=== PATIENT | female | born 1940 | race Caucasian/White ===

== ENCOUNTER 2017-04-08 10:25 | Outpatient (RCR) | payer MEDICARE | END 2017-04-09 | disposition home or self-care (01) | LOC: CR 10:25 | PROVIDERS: ATTEND Pediatrics | DX: Z48.812 Encounter for surgical aftercare following surgery on the circulatory system (principal); Z95.2 Presence of prosthetic heart valve | CPT/HCPCS: 93798 ==

== ENCOUNTER 2017-07-18 10:58 | Outpatient (RCR) | payer MEDICARE | END 2017-07-21 | disposition home or self-care (01) | LOC: CR 10:58 | PROVIDERS: ATTEND Pediatrics | DX: Z95.2 Presence of prosthetic heart valve (principal) | CPT/HCPCS: 93798 ==

== ENCOUNTER → 2018-09-28 | Outpatient (CLI) | payer MEDICARE ==
[2018-09-28 14:53] LABS: INR 1.5 (0.8-1.4); PROTHROMBIN TIME PATIENT 17.8 SEC (12.2-14.7)
== END ==
LOC: LAB FS 13:43
PROVIDERS: ATTEND Pediatrics
DX: Z95.2 Presence of prosthetic heart valve (principal)
CPT/HCPCS: 36415; 82607; 85610

== ENCOUNTER → 2019-03-26 | Outpatient (CLI) | payer MEDICARE | LOC: LAB FS 14:13 | PROVIDERS: ATTEND Pediatrics | DX: D25.9 Leiomyoma of uterus, unspecified (principal); R19.09 Other intra-abdominal and pelvic swelling, mass and lump | CPT/HCPCS: 36415; 82378; 86304 ==

== ENCOUNTER 2019-04-04 09:23 | Outpatient (RCR) | payer MEDICARE ==
[2019-01-17 10:26] LABS: PROTHROMBIN TIME PATIENT 13.4 SEC (12.2-14.7)
[2019-03-26 15:34] LABS: INR 1.3 (0.8-1.4); PROTHROMBIN TIME PATIENT 17.1 SEC (12.2-14.7)
[~2019-04-04 09:23] MED LIST: SEVOFLURANE (ULTANE) 15 ML INHAL SOLN ONE
[2019-04-04 10:21] LABS: INR 1.7 (0.8-1.4); PROTHROMBIN TIME PATIENT 20.2 SEC (12.2-14.7)
== END 2019-04-17 | disposition home or self-care (01) ==
LOC: LAB FS 09:23
PROVIDERS: ATTEND Pediatrics
DX: Z48.812 Encounter for surgical aftercare following surgery on the circulatory system (principal); Z95.2 Presence of prosthetic heart valve
CPT/HCPCS: 36415; 85610

== ENCOUNTER 2023-05-22 13:26 | Emergency (ER) | payer MEDICARE ==
[2023-05-22 13:26] VITALS: BP 131/84
--- NOTE | 2023-05-22 13:36 | ED Fall/Injury ---
General Stated Complaint: FALL | HIP FX Source: patient, EMS Exam Limitations: no limitations History of Present Illness Date Seen by Provider: May 22, 2023 Time Seen by Provider: 13:23 Initial Comments 83-year-old female presents to the emergency department today via EMS after a ground-level fall. She states she was standing in her kitchen and just cooked lunch. She stood up to take a step and "went down." She does not recall the circumstances behind it but feels like she may have briefly lost consciousness. She did not hit her head per her report. She has pain at her left hip and was unable to bear any weight or move without excruciating pain. She has no pain elsewhere. She is on Coumadin for an artificial heart valve. She denies any chest pain, abdominal pain, upper extremity pain, right lower extremity pain. All other systems reviewed and negative except documented per HPI. Voice recognition software was used to help create this chart Allergies and Home Medications Allergies Coded Allergies: No Known Drug Allergies (Unverified , 05/22/23) Patient Home Medication List Home Medication List Reviewed: Yes Review of Systems Review of Systems Constitutional: see HPI Past Kitfcyk-Imwqqh-Dzbnue Hx Patient Social History Tobacco Use?: No Use of E-Cig and/or Vaping dev: No Substance use?: No Alcohol Use?: No Physical Exam Vital Signs Vital Signs - First Documented 05/22/23 05/22/23 13:26 14:27 Temp 36.9 Pulse 80 Resp 16 B/P (MAP) 131/84 (100) Pulse Ox 92 O2 Delivery Room Air O2 Flow Rate 2.00 Capillary Refill : Height, Weight, BMI Height: '" Weight: lbs. oz. kg; BMI Method: General Appearance: WD/WN, no apparent distress HEENT: normal ENT inspection, pharynx normal Cardiovascular: regular rate, rhythm, systolic murmur (Consistent with artificial heart valve) Respiratory: chest non-tender, lungs clear, normal breath sounds, no respiratory distress, no accessory muscle use Gastrointestinal: normal bowel sounds, non tender, soft, no organomegaly Extremities: normal capillary refill, other (Left lower extremity shortened, externally rotated. Significant tenderness palpation left lateral hip. Neurovascular motor intact distally) Neurologic/Psychiatric: alert, normal mood/affect, oriented x 3 Skin: normal color, warm/dry Progress/Results/Core Measures Results/Orders Lab Results Laboratory Tests Test 05/22/23 13:40 Range/Units White Blood Count 8.6 4.3-11.0 10^3/uL Red Blood Count 3.37 L 3.80-5.11 10^6/uL Hemoglobin 11.1 L 11.5-16.0 g/dL Hematocrit 33 L 35-52 % Mean Corpuscular Volume 97 80-99 fL Mean Corpuscular Hemoglobin 33 25-34 pg Mean Corpuscular Hemoglobin Concent 34 32-36 g/dL Red Cell Distribution Width 12.0 10.0-14.5 % Platelet Count 210 130-400 10^3/uL Mean Platelet Volume 10.4 9.0-12.2 fL Immature Granulocyte % (Auto) 0 % Neutrophils (%) (Auto) 74 42-75 % Lymphocytes (%) (Auto) 16 12-44 % Monocytes (%) (Auto) 7 0-12 % Eosinophils (%) (Auto) 2 0-10 % Basophils (%) (Auto) 1 0-10 % Neutrophils # (Auto) 6.4 1.8-7.8 10^3/uL Lymphocytes # (Auto) 1.4 1.0-4.0 10^3/uL Monocytes # (Auto) 0.6 0.0-1.0 10^3/uL Eosinophils # (Auto) 0.2 0.0-0.3 10^3/uL Basophils # (Auto) 0.1 0.0-0.1 10^3/uL Immature Granulocyte # (Auto) 0.0 0.0-0.1 10^3/uL Prothrombin Time 24.1 H 12.2-14.7 SEC INR Comment 2.1 H 0.8-1.4 Sodium Level 134 L 135-145 MMOL/L Potassium Level 4.1 3.6-5.0 MMOL/L Chloride Level 100 98-107 MMOL/L Carbon Dioxide Level 24 21-32 MMOL/L Anion Gap 10 5-14 MMOL/L Blood Urea Nitrogen 8 7-18 MG/DL Creatinine 0.80 0.60-1.30 MG/DL Estimat Glomerular Filtration Rate 72 BUN/Creatinine Ratio 10 Glucose Level 88 70-105 MG/DL Calcium Level 8.9 8.5-10.1 MG/DL My Orders Orders - ALMITA SMITH DO Cbc And Automated Diff (05/22/23 13:31) Basic Metabolic Panel (05/22/23 13:31) Protime With Inr (05/22/23 13:31) Ekg Tracing (05/22/23 13:31) Pelvis With Left Hip 2-3 View (05/22/23 13:31) Ct Head Wo (05/22/23 13:32) Morphine Injection (Morphine Injection (05/22/23 14:02) Morphine Injection (Morphine Injection (05/22/23 14:04) Vital Signs/I&O 05/22/23 05/22/23 13:26 14:27 Temp 36.9 Pulse 80 74 Resp 16 16 B/P (MAP) 131/84 (100) 139/69 (92) Pulse Ox 92 98 O2 Delivery Room Air Nasal Cannula O2 Flow Rate 2.00 Comment Sinus rhythm with a rate of 75 bpm. Normal intervals. Left axis deviation. Incomplete right bundle branch block. No ST or T wave abnormalities. No ectopy. No STEMI. Departure Communication (Admissions) Patient is hemodynamically stable, neurovascular and sensory intact. She appears to have syncopized which caused her to fall to the ground. She does have a femoral neck fracture on the left side. Given that she is on Coumadin does not know she hit her head no and did a CT scan of her head which is negative. Labs are unremarkable EKG is nonischemic without any evidence for dysrhythmia. I spoke with at [facility] who accepts the patient in transfer as we do not have orthopedic coverage available this weekend. She is ultimately transferred in stable condition. She was given morphine here for pain which seemed to help her quite a bit. Impression Primary Impression: Femoral neck fracture Qualified Codes: S72.002A - Fracture of unspecified part of neck of left femur, initial encounter for closed fracture Disposition: HOME, SELF-CARE Condition: Stable Departure-Patient Inst. Referrals: LELE CHRISTENSEN MD (PCP/Family) Primary Care Physician ALMITA SMITH DO May 22, 2023 13:35
[2023-05-22 13:47] LABS: BASOPHILS # (AUTO) 0.1 10^3/uL (0.0-0.1); BASOPHILS % (AUTO) 1 % (0-10); EOSINOPHILS # (AUTO) 0.2 10^3/uL (0.0-0.3); EOSINOPHILS % (AUTO) 2 % (0-10); HEMATOCRIT 33 % (35-52); HEMOGLOBIN 11.1 g/dL (11.5-16.0); LYMPHOCYTES # (AUTO) 1.4 10^3/uL (1.0-4.0); LYMPHOCYTES % (AUTO) 16 % (12-44); MEAN CORPUSCULAR HEMOGLOBIN 33 pg (25-34); MEAN CORPUSCULAR HGB CONC 34 g/dL (32-36); MEAN CORPUSCULAR VOLUME 97 fL (80-99); MEAN PLATELET VOLUME 10.4 fL (9.0-12.2); MONOCYTES # (AUTO) 0.6 10^3/uL (0.0-1.0); MONOCYTES % (AUTO) 7 % (0-12); NEUTROPHILS # (AUTO) 6.4 10^3/uL (1.8-7.8); NEUTROPHILS % (AUTO) 74 % (42-75); PLATELET COUNT 210 10^3/uL (130-400); WHITE BLOOD COUNT 8.6 10^3/uL (4.3-11.0)
[2023-05-22 13:57] LABS: INR 2.1 (0.8-1.4); PROTHROMBIN TIME PATIENT 24.1 SEC (12.2-14.7)
[2023-05-22] MEDS ORDERED: morphine INJ 10 MG/ML 1ML (SYR OR VIAL) IVP STA (14:02)
[2023-05-22 14:03] LABS: POTASSIUM 4.1 MMOL/L (3.6-5.0)
[2023-05-22 14:04] LABS: CALCIUM 8.9 MG/DL (8.5-10.1)
[2023-05-22] MEDS ORDERED: morphine INJ 4 MG/ML 1 ML (VIAL/SYRINGE) ONE (14:04)
[2023-05-22 14:05] LABS: CREATININE SERUM 0.8 MG/DL (0.60-1.30)
--- NOTE | 2023-05-22 14:22 | Diagnostic Imaging Report ---
EXAMINATION: Left hip unilateral 2 or 3 views (w/pelvis when done) HISTORY: L hip pain after fall COMPARISON: None available. FINDINGS: The left femoral neck is not well seen on either view. No fracture is seen. There is moderate right hip osteoarthritis. No dislocation. IMPRESSION: 1. No fracture is seen but the left femoral neck is obscured on both views, consider CT given the limited radiographic views. Dictated by: Dictated on workstation # [id number]
--- NOTE | 2023-05-22 14:23 | Diagnostic Imaging Report ---
PROCEDURE: CT head without contrast. TECHNIQUE: Multiple contiguous axial images were obtained through the brain without the use of intravenous contrast. Auto Exposure Controls were utilized during the CT exam to meet ALARA standards for radiation dose reduction. INDICATION: Trauma. Head injury. Fall. Anticoagulation therapy. COMPARISON: None. FINDINGS: Moderate generalized parenchymal volume loss. No intracranial hemorrhage, mass effect, hydrocephalus, or extra-axial fluid collections. No CT evidence of a territorial infarction. Osseous structures are intact. Minimal mucosal thickening in the maxillary and ethmoid sinuses. The mastoids are clear. IMPRESSION: No acute intracranial CT findings. Dictated by: Dictated on workstation # [id number]
== END 2023-05-22 14:51 | disposition short-term general hospital (02) ==
LOC: EDUNIT# 13:26 → ER FS 13:28
DX: S72.002A Fracture of unspecified part of neck of left femur, initial encounter for closed fracture (principal); Z79.01 Long term (current) use of anticoagulants; W18.30XA Fall on same level, unspecified, initial encounter; Y93.G3 Activity, cooking and baking; Y92.000 Kitchen of unspecified non-institutional (private) residence as the place of occurrence of the external cause
CPT/HCPCS: 36415; 70450; 73502; 80048; 85025; 85610; 93005; 96374

== ENCOUNTER 2023-05-29 09:51 | Inpatient (IN) | payer MEDICARE ==
[~2023-05-29] VITALS: Ht 162.6 cm; Wt 61.0 kg
--- NOTE | 2023-05-29 09:00 | PM&R Post Admission Assessment ---
PM&R Date of Visit: May 29, 2023 Time of Visit: 14:00 History of Present Illness Chief complaint: Left hip fracture repair with recovery HPI: This is an 83-year-old female who presented from [facility] following a left hip fracture repair. She has a history of a mechanical aortic valve replacement maintained on Coumadin. Current INR is 1.0. Patient has also a history of urinary incontinence and asthma with anemia. Prior level of functioning was living with spouse and independent in ADLs but current level of functioning requiring moderate assist and transfer and only walking 15 feet with wheeled walker. She reports that her pain is well controlled and she is eating lunch. Past Ihflsfu-Janosj-Tksdgu Hx Past Med/Social Hx: Reviewed Nursing Past Med/Soc Hx, Reviewed and Corrections made Patient Social History Marrital Status: Employed/Student: retired Alcohol Use: Denies Use Smoking Status: Never a Smoker Past Medical History Surgeries: Valve Replacement Cardiac: High Cholesterol, Hypertension, Valvular Heart Disease Gastrointestinal: Gastroesophageal Reflux Musculoskeletal: Arthritis PM&R Allergy/Meds/Data Review Allergies Coded Allergies: No Known Drug Allergies (Unverified , 05/22/23) Home Medications Scheduled Albuterol Sulfate (Albuterol Sulfate), 4 MG PO DAILY, (Reported) Alprazolam (Alprazolam), 1 MG PO HS, (Reported) Calcium Carbonate/Vitamin D3 (Calcium 600 mg-Vit D3 5 Mcg Tb), 1 EACH PO DAILY, (Reported) Cyanocobalamin (Vitamin B-12) (Vitamin B-12), 1,000 MCG PO DAILY, (Reported) Fluticasone/Salmeterol (Advair 250-50 Diskus), 1 PUFF IH BID, (Reported) Sucralfate (Sucralfate), 1 GM PO BID WITH MEALS, (Reported) Warfarin Sodium (Warfarin Sodium), 1 MG PO DAILY@1800, (Reported) Warfarin Sodium (Warfarin Sodium), 4 MG PO DAILY@1800, (Reported) [Prevagen], 10 MG PO DAILY, (Reported) Scheduled PRN Albuterol Sulfate (Ventolin Hfa), 1 PUFF INH Q6H PRN for SHORTNESS OF BREATH, (Reported) Hydrocodone/Acetaminophen (Hydrocodone-Acetamin 5-325 mg), 1 TAB PO Q4H PRN for PAIN-MODERATE (5-7), (Reported) Current Medications Current Medications Reviewed Review of Systems Constitutional: see HPI, malaise, weakness EENTM: no symptoms reported Respiratory: no symptoms reported Cardiovascular: no symptoms reported Gastrointestinal: constipation Genitourinary: no symptoms reported Musculoskeletal: back pain, joint pain Skin: no symptoms reported Psychiatric/Neurological: Anxiety, Depressed All Other Systems Reviewed Negative Unless Noted: Yes Physical Exam Physical Exam Vital Signs Capillary Refill : Height, Weight, BMI Height: '" Weight: lbs. oz. kg; BMI Method: General Appearance: No Apparent Distress, WD/WN, Chronically ill Eyes: Bilateral Eye Normal Inspection, Bilateral Eye PERRL HEENT: PERRL/EOMI, Normal ENT Inspection, Pharynx Normal Neck: Full Range of Motion, Normal Inspection, Non Tender, Supple, Carotid Bruit Respiratory: Chest Non Tender, Lungs Clear, Normal Breath Sounds, No Accessory Muscle Use, No Respiratory Distress Cardiovascular: Regular Rate, Rhythm, No Edema, No Gallop, No JVD, No Murmur, Normal Peripheral Pulses, Other (click) Gastrointestinal: Normal Bowel Sounds, No Organomegaly, No Pulsatile Mass, Non Tender, Soft Back: Normal Inspection, No CVA Tenderness, No Vertebral Tenderness Extremity: Normal Capillary Refill, Normal Inspection, Normal Range of Motion (except left leg), Non Tender, No Calf Tenderness, No Pedal Edema Neurologic/Psychiatric: Alert, Oriented x3, No Motor/Sensory Deficits, Normal Mood/Affect, Abnormal Gait, Motor Weakness (left leg) Skin: Normal Color, Warm/Dry Lymphatic: No Adenopathy PM&R Medical Assessment & Plan REHAB/MEDICAL ASSESSMENT AND PLAN: REHAB IMPAIRMENT GROUP: Status post unilateral hip fracture ETIOLOGIC DIAGNOSIS: Left femoral neck fracture, displaced The comorbidities that impact the patients function and/or functional outcome by: mechanical heart valve, anemia, hypertension, advanced age REHAB PLAN: The patient is being admitted to our comprehensive inpatient rehabilitation facility and can tolerate the intensity of service consisting of at least: 180 minutes of therapy a day, 5 out of 7 days a week Rehab treatment will consist of: PT and OT will focus on increasing ADLs along with stamina with ambulation and prevent falls along with improving independence in order to go home with spouse The patient/family has a good understanding of our discharge process and will benefit from an interdisciplinary inpatient rehabilitation program. The patient has potential to make improvement and is in need of at least two of the following multidisciplinary therapies including but not limited to physical, occupational, speech, and prosthetics and orthotics. Additionally the patient will need services from respiratory, nutritional services, wound care, psychology, etc. (Customize this to each patient). Given the patients complex condition and risk of further medical complications, rehabilitation services cannot be safely or effectively provided at a lower level of care such as a intermediate facility. BARRIERS TO DISCHARGE: Advanced age and frail status with warfarin anticoagulation ESTIMATED LOS: 7 days DISPOSITION: Home RELEVANT CHANGES SINCE PREADMISSION SCREENING: I have compared the patients medical and functional status at the time of the preadmission screening and there are: no changes PROGNOSIS: Good REHABILITATION GOALS: 1. PT and OT will focus on increasing ADLs along with stamina with ambulation and prevent falls along with improving independence in order to go home with spouse All the above goals were reviewed with the patient and he/she is in agreement. By signing this document, I acknowledge that I have personally performed a full physical examination on this patient within 24 hours of admission to this inpatient rehabilitation facility and have determined the patient to be able to tolerate the above course of treatment at an intensive level for a reasonable period of time. I will be completing a detailed individualized Plan of Care for this patient by day #4 of the patients stay based upon the Preadmission Screen, the Post-Admission Evaluation, and the therapy evaluations. Admission Dx/Comorbidities: (1) Femoral neck fracture Status: Acute ICD Codes: S72.009A - Fracture of unspecified part of neck of unspecified femur, initial encounter for closed fracture BIBI HOGUE DO May 29, 2023 09:00
[~2023-05-29 09:51] MED LIST changes: +ACETAMINOPHEN 325 MG TABLET PO PRN; +ALPRAZolam 0.25 MG TABLET PO PRN; +BISACODYL 10 MG SUPPOSITORY PR PRN; +CALCIUM CARBONATE 500 MG CHEW TABLET PO PRN; +DOCUSATE SODIUM 100 MG CAPSULE PO PRN; +LACTULOSE SYRUP 10GM/15ML 30ML UDC PO PRN; +LOPERAMIDE 2 MG CAPSULE PO PRN; +MELATONIN 3 MG TABLET PO PRN; +ONDANSETRON 4 MG ORAL DISSOLVE TABLET PO PRN; -SEVOFLURANE (ULTANE) 15 ML INHAL SOLN ONE; +Sodium Phosphate/Sodium Biphosphate ADULT enema PR PRN; +diphenhydrAMINE 25 MG TABLET PO PRN; +guaiFENesin/CODEINE 10ML UDC PO PRN
[2023-05-29] MEDS: SENNA W/DOCUSATE TABLET PO SCH ×2 (09:52→20:52)
[2023-05-29] MEDS: DOCUSATE SODIUM 100 MG CAPSULE PO SCH ×2 (09:52→20:06)
[2023-05-29 09:55] VITALS: BP 122/61
[2023-05-29] MEDS ORDERED: RT-ALBUINH INH (10:13)
[2023-05-29] MEDS ORDERED: FLUT1DIS26 IH (10:13)
[2023-05-29] MEDS ORDERED: ALBU4TAB4 PO (10:13)
[2023-05-29] MEDS ORDERED: CALC-1104 PO (10:13)
[2023-05-29] MEDS ORDERED: PREVAGEN PO (10:13)
[2023-05-29] MEDS ORDERED: ALPR1TAB7 PO (10:13)
[2023-05-29] MEDS ORDERED: SUCR1TAB PO (10:13)
[2023-05-29] MEDS ORDERED: WRF1T PO (10:13)
[2023-05-29] MEDS ORDERED: WARF4TAB3 PO (10:13)
[2023-05-29] MEDS ORDERED: CYAN-41 PO (10:13)
[2023-05-29] MEDS ORDERED: ACHD5005 PO (10:13)
[2023-05-29] MEDS ORDERED: RT-ALBUTEROL SULF 2.5 MG/3 ML PRE-MIX VIAL INH PRN (13:00)
[2023-05-29] MEDS: HYDROcodone/ACETAMINOPHEN 5 MG/325 MG TABLET PO PRN ×2 (15:19→20:06)
[2023-05-29] MEDS: SUCRALFATE 1 GM TABLET PO SCH (17:21)
[2023-05-29] MEDS: warFARin 4 MG (COUMADIN) TAB PO SCH (17:22)
[2023-05-29] MEDS: warFARin 1 MG (COUMADIN) TAB PO SCH (17:22)
[2023-05-29 19:54] VITALS: BP 131/66
[2023-05-29] MEDS: ALPRAZolam 1 MG TABLET PO SCH (20:06)
--- NOTE | 2023-05-30 05:20 | PM&R Progress Note ---
Subjective HPI/CC On Admission Date Seen by Provider: May 30, 2023 Time Seen by Provider: 09:00 Subjective/Events-last exam 05/30/2023: Patient much improved Pain controlled Labs stable INR 1.3 so initiated Lovenox injections to bridge to protect valve No falls Review of Systems General: Fatigue, Malaise Musculoskeletal: leg pain Objective Exam Vital Signs Vital Signs Date Time Temp Pulse Resp B/P (MAP) Pulse Ox O2 Delivery O2 Flow Rate FiO2 05/30/23 20:05 36.4 97 20 122/61 (81) 97 Room Air Capillary Refill : General Appearance: No Apparent Distress, WD/WN, Chronically ill HEENT: PERRL/EOMI, Normal ENT Inspection, Pharynx Normal Neck: Full Range of Motion, Normal Inspection, Non Tender, Supple, Carotid Bruit Respiratory: Chest Non Tender, Lungs Clear, Normal Breath Sounds, No Accessory Muscle Use, No Respiratory Distress Cardiovascular: Regular Rate, Rhythm, No Edema, No Gallop, No JVD, No Murmur, Normal Peripheral Pulses, Other (click) Gastrointestinal: Normal Bowel Sounds, No Organomegaly, No Pulsatile Mass, Non Tender, Soft Back: Normal Inspection, No CVA Tenderness, No Vertebral Tenderness Extremity: Normal Capillary Refill, Normal Inspection, Normal Range of Motion (except left leg), Non Tender, No Calf Tenderness, No Pedal Edema Neurologic/Psychiatric: Alert, Oriented x3, No Motor/Sensory Deficits, Normal Mood/Affect, Abnormal Gait, Motor Weakness (left leg) Skin: Normal Color, Warm/Dry Lymphatic: No Adenopathy Results/Procedures Lab Laboratory Tests 05/30/23 05:38 Patient resulted labs reviewed. [facility] Transfers Therapy Code Descriptions/Definitions Functional [place] Measure: 0=Not Assessed/NA 4=Minimal Assistance 1=Total Assistance 5=Supervision or Setup 2=Maximal Assistance 6=Modified [place] 3=Moderate Assistance 7=Complete IndependenceSCALE: Activities may be completed with or without assistive devices. 4-Dcbxsaiile-ilsbimp completes the activity by him/herself with no assistance from a helper. 5-Set-up or Clean-up Assistance-helper sets up or cleans up; patient completes activity. [place] assists only prior to or following the activity. 4-Supervision or Touching Assistance-helper provides verbal cues and/or touch ing/steadying and/or contact guard assistance as patient completes activity. Assistance may be provided throughout the activity or intermittently. 3-Partial/Moderate Assistance-helper does LESS THAN HALF the effort. [place] lifts, holds or supports trunk or limbs, but provides less than half the effort. 2-Substantial/Maximal Assistance-helper does MORE THAN HALF the effort. [place] lifts or holds trunk or limbs and provides more than half the effort. 8-Mdjoqcuvm-fhjafr does ALL the effort. Patient does none of the effort to complete the activity. Or, the assistance of 2 or more helpers is required for the patient to complete the activity. If activity was not attempted, code reason: 7-Patient Refused. 9-Not Applicable-not attempted and the patient did not perform the activity bef ore the current illness, exacerbation or injury. 10-Not Attempted due to Environmental Limitations-(lack of equipment, weather restraints, etc.). 88-Not Attempted due to Medical Conditions or Safety Concerns. Assessment/Plan Assessment and Plan Assess & Plan/Chief Complaint Assessment: Left hip fracture Mechanical heart valve Warfarin anticoagulation HTN Post op anemia from blood loss Poor nutrition B12 def GERD 05/30/2023: Continue aggressive therapy Pain control Lovenox bridge (1) Femoral neck fracture Status: Acute BIBI HOGUE DO May 30, 2023 05:20
[2023-05-30 06:10] LABS: BASOPHILS # (AUTO) 0.1 10^3/uL (0.0-0.1); BASOPHILS % (AUTO) 1 % (0-10); EOSINOPHILS # (AUTO) 0.6 10^3/uL (0.0-0.3); EOSINOPHILS % (AUTO) 8 % (0-10); HEMATOCRIT 29 % (35-52); HEMOGLOBIN 9.7 g/dL (11.5-16.0); LYMPHOCYTES # (AUTO) 1.3 10^3/uL (1.0-4.0); LYMPHOCYTES % (AUTO) 20 % (12-44); MEAN CORPUSCULAR HEMOGLOBIN 33 pg (25-34); MEAN CORPUSCULAR HGB CONC 34 g/dL (32-36); MEAN CORPUSCULAR VOLUME 97 fL (80-99); MEAN PLATELET VOLUME 10.2 fL (9.0-12.2); MONOCYTES # (AUTO) 0.7 10^3/uL (0.0-1.0); MONOCYTES % (AUTO) 10 % (0-12); NEUTROPHILS # (AUTO) 4.1 10^3/uL (1.8-7.8); NEUTROPHILS % (AUTO) 60 % (42-75); PLATELET COUNT 260 10^3/uL (130-400); WHITE BLOOD COUNT 6.8 10^3/uL (4.3-11.0)
[2023-05-30 06:18] LABS: INR 1.3 (0.8-1.4); PROTHROMBIN TIME PATIENT 16.4 SEC (12.2-14.7)
[2023-05-30 06:23] LABS: ALBUMIN 2.6 GM/DL (3.2-4.5); POTASSIUM 4.1 MMOL/L (3.6-5.0)
[2023-05-30 06:24] LABS: CALCIUM 8.5 MG/DL (8.5-10.1)
[2023-05-30 06:27] LABS: BILIRUBIN,TOTAL 0.3 MG/DL (0.1-1.0)
[2023-05-30 06:29] LABS: CREATININE SERUM 0.78 MG/DL (0.60-1.30)
[2023-05-30 07:49] VITALS: BP_SYST 114; BP_SYST 141; BP_DIAS 56; BP_DIAS 73
[2023-05-30] MEDS: FLUTICASONE/VILANTEROL 100/25 MCG (14 DOSES) IH SCH (08:26)
[2023-05-30] MEDS: DOCUSATE SODIUM 100 MG CAPSULE PO SCH ×2 (08:33→20:57)
[2023-05-30] MEDS: SENNA W/DOCUSATE TABLET PO SCH ×2 (08:33→20:57)
[2023-05-30] MEDS: CALCIUM CARBONATE 600 MG +VITAMIN D TABLET PO SCH (08:33)
[2023-05-30] MEDS: SUCRALFATE 1 GM TABLET PO SCH ×2 (08:34→18:07)
[2023-05-30] MEDS: ENOXAPARIN 60 MG/0.6 ML SYRINGE SC SCH ×2 (08:34→18:07)
[2023-05-30] MEDS: CYANOCOBALAMIN 1,000 MCG TABLET PO SCH (08:34)
[2023-05-30] MEDS ORDERED: PREVAGEN 10 MG PO SCH (09:00)
--- NOTE | 2023-05-30 09:01 | Occupational Therapy Eval ---
OT Evaluation-General/PLF Medical Diagnosis Admission Date May 29, 2023 at 09:51 Medical Diagnosis: s/p L RUBEN Onset Date: May 24, 2023 Therapy Diagnosis Therapy Diagnosis: decreased ADL status Precautions Precautions/Isolations: Fall Prevention, Standard Precautions Referral Physician: Jody Kimble Reason: Evaluation/Treatment Social History Home: Multilevel Current Living Status: Significant Other Entry Into Home: Stairs With Railing Steps Into Home: 1 able to live on main level of house. ADL-Prior Level of Function SCALE: Activities may be completed with or without assistive devices. 2-Cqwspxjbps-vnybtoh completes the activity by him/herself with no assistance from a helper. 5-Set-up or Clean-up Assistance-helper sets up or cleans up; patient completes activity. [place] assists only prior to or following the activity. 4-Supervision or Touching Assistance-helper provides verbal cues and/or touching/steadying and/or contact guard assistance as patient completes activity. Assistance may be provided throughout the activity or intermittently. 3-Partial/Moderate Assistance-helper does LESS THAN HALF the effort. [place] lifts, holds or supports trunk or limbs, but provides less than half the effort. 2-Substantial/Maximal Assistance-helper does MORE THAN HALF the effort. [place] lifts or holds trunk or limbs and provides more than half the effort. 8-Elcjxfuzk-plnqug does ALL the effort. Patient does none of the effort to complete the activity. Or, the assistance of 2 or more helpers is required for the patient to complete the activity. If activity was not attempted, code reason: 7-Patient Refused. 9-Not Applicable-not attempted and the patient did not perform the activity before the current illness, exacerbation or injury. 10-Not Attempted due to Environmental Limitations-(lack of equipment, weather restraints, etc.). 88-Not Attempted due to Medical Conditions or Safety Concerns. ADL PLOF Comments Pt was independent with ADLs and functional mobility at OF, no AD. She has an old style tub with HH shower head, no curtain on the main level of house. Walk in shower on 2nd floor, with ledge to sit on. Self Care: Independent Functional Cognition: Independent DME/Equipment: Tub/Shower (no curtains) DME/Equipment Comments S.O has a collection of canes, no walker. Drive Self: Yes OT Current Status Subjective Pt agreeable to OT tx, rates pain 3/10 in L hip. Worsening pain as she is att empting to go to sleep. Mental Status/Objective Patient Orientation: Person, Place, Time, Situation, Normal For Age Current Glasses/Contacts: No Hearing Aids: Yes Dentures/Partials: No Hand Dominance: Right Upper Extremity ROM WFL Upper Extremity Coordination WFL Upper Extremity Sensation WFL per pt report Upper Extremity Strength grossly 4/5 ADL-Treatment Eating (QC): 5 (per pt report) Oral Hygiene (QC): 5 (Per RN report) Shower/Bathe Self (QC): 3 (assist BLEs lower legs/feet due to hip precautions.) Upper Body Dressing (QC): 5 Lower Body Dressing (QC): 2 (Max A due to hip precautions. ) On/Off Footwear (QC): 1 (total assist due to hip precautions.) Toileting Hygiene (QC): 4 (CGA) Other Treatments Pt in bed, agreeable to OT evaluation/tx. Pt provided information about PLOF and home set up and participated in UE screen. Pt transferred supine to sit EOB, min A with LLE. Pt completed ADLs at EOB, sit to stand from EOB with Min A (VCs for UE placement). Pt used FWW to perform functional mobility to bathroom, CGA, transferring onto BSC over toilet. Pt completed toileting, with instructions to pull call cord when finished. Post tx, pt on toilet, call cord in reach and all needs met. Education provided on AE for LBD. Pt able to complete LBD with min A using restaurant team member. Pt able to complete footwear with mod A using AE (Pt able doff b/l socks. Assist donning b/l shoes, min A donning socks). Education OT Patient Education: Correct positioning, Energy conservation, Modified ADL techniques, Progress toward Goal/Update tx plan, Purpose of tx/functional activities, Rehab process Teaching Recipient: Patient Teaching Methods: Discussion Response to Teaching: Verbalize Understanding BIMS CAM BIMS Expression of Ideas and Wants: Without Difficulty Understanding Verbal Content: Usually Understands (slight AKHIOK) Brief Interview/Mental Status: Yes IRF MACIEJ BIMS: IRF MACIEJ BIMS Response (Comments) Value Repitition of Three Words Three 3 Recalls Socks Yes, No Cue Required 2 Recalls Blue Yes, No Cue Required 2 Recalls Bed Yes, After Cueing 1 Year Correct 3 Month Accurate Within 5 Days 2 Day Correct 1 Total 14 Patient Normally Able to Recal: Current Session, Location of own room, Staff Names and faces, That he/she in a hsp Should Staff Asses. Mental St.: No Memory/Recall Ability: Current Season, Location of Own Room, Staff Names and Faces, That He/She in Hospit[facility] CAM Mental Status Change/Baseline: 0 Inattention: 0 Disorganized thinkin Altered level of consciousness: 0 OT Short Term Goals Short Term Goals Time Frame: Jun 08, 2023 Shower/bathe self: 5 Upper body dressin Lower body dressin Putting on/taking off footwear: 5 OT Control Specialist Goals Control Specialist Goals Time Frame: Jun 17, 2023 Eating (QC): 6 Oral Hygiene (QC): 6 Toileting Hygiene (QC): 6 Shower/Bathe Self (QC): 6 Upper Body Dressing (QC): 6 Lower Body Dressing (QC): 6 On/Off Footwear (QC): 6 Additional Goals: 1-Demonstrate ADL Tasks, 2-Verbalize Understanding, 3- ImproveStrength/Jp 1=Demonstrate adherence to instructed precautions during ADL tasks. 2=Patient will verbalize/demonstrate understanding of assistive devices/modifications for ADL. 3=Patient will improve strength/tolerance for activity to enable patient to perform ADL's. OT Education/Plan Problem List/Assessment Assessment: Decreased Activ Tolerance, Decreased UE Strength, Impaired Funct Balance, Impaired I ADL's, Impaired Self-Care Skills Discharge Recommendations Plan/Recommendations: Continue POC Treatment Plan/Plan of Care Patient would benefit from OT for education, treatment and training to promote independence in ADL's, mobility, safety and/or upper extremity function for ADL's. Plan of Care: ADL Retraining, Functional Mobility, Group Exercise/Act as Ind, UE Funct Exercise/Act Treatment Duration: Jun 17, 2023 Frequency: At least 5 of 7 days/Wk (IRF) Estimated Hrs Per Day: 1.5 hours per day Agreement: Yes Rehab Potential: Good Time Start Time: 08:45 Stop Time: 09:30 DATE: May 30, 2023 Total Time Billed (hr/min): 45 Billed Treatment Time 1, EVM (15'), ADL 2 (30') DELMAR ARAIZA OT May 30, 2023 09:00
--- NOTE | 2023-05-30 11:50 | Occupational Ther Daily Note ---
OT Current Status-Daily Note Subjective Pt in recliner, agreeable to OT Tx. ADL-Treatment Therapy Code Descriptions/Definitions Functional [place] Measure: 0=Not Assessed/NA 4=Minimal Assistance 1=Total Assistance 5=Supervision or Setup 2=Maximal Assistance 6=Modified [place] 3=Moderate Assistance 7=Complete IndependenceSCALE: Activities may be completed with or without assistive devices. 6-Atvravdmvw-cdvpzyq completes the activity by him/herself with no assistance from a helper. 5-Set-up or Clean-up Assistance-helper sets up or cleans up; patient completes activity. [place] assists only prior to or following the activity. 4-Supervision or Touching Assistance-helper provides verbal cues and/or touching/steadying and/or contact guard assistance as patient completes activity. Assistance may be provided throughout the activity or intermittently. 3-Partial/Moderate Assistance-helper does LESS THAN HALF the effort. [place] lifts, holds or supports trunk or limbs, but provides less than half the effort. 2-Substantial/Maximal Assistance-helper does MORE THAN HALF the effort. [place] lifts or holds trunk or limbs and provides more than half the effort. 8-Qfrnkyoae-tscgvx does ALL the effort. Patient does none of the effort to compl ete the activity. Or, the assistance of 2 or more helpers is required for the patient to complete the activity. If activity was not attempted, code reason: 7-Patient Refused. 9-Not Applicable-not attempted and the patient did not perform the activity before the current illness, exacerbation or injury. 10-Not Attempted due to Environmental Limitations-(lack of equipment, weather restraints, etc.). 88-Not Attempted due to Medical Conditions or Safety Concerns. Other Treatment Sit to stand from lift recliner, CGA. Pt performed functional mobility to table in [facility] common area, CGA-SBA. Pt sat in chair with arm rests, education provided on hip precautions with sit to/from stand transfers. sit to stand from chair, CGA with VCs for technique. In order to increase activity tolerance and dynamic standing, pt stood at elevated table, x15 mins, SBA, while completing UE reaching task at table top. Pt requests seated rest break, returning to chair with VCs for technique. Post tx, pt in ARU common area, PT present, all needs met. OT Short Term Goals Short Term Goals Time Frame: Jun 08, 2023 Shower/bathe self: 5 Upper body dressin Lower body dressin Putting on/taking off footwear: 5 OT Master Sheet Clerk Goals Master Sheet Clerk Goals Time Frame: Jun 17, 2023 Acute change in mental status: 0 Inattention: 0 Disorganized thinkin Altered level of consciousness: 0 Eating (QC): 6 Oral Hygiene (QC): 6 Toileting Hygiene (QC): 6 Shower/Bathe Self (QC): 6 Upper Body Dressing (QC): 6 Lower Body Dressing (QC): 6 On/Off Footwear (QC): 6 Additional Goals: 1-Demonstrate ADL Tasks, 2-Verbalize Understanding, 3- ImproveStrength/Jp 1=Demonstrate adherence to instructed precautions during ADL tasks. 2=Patient will verbalize/demonstrate understanding of assistive devices/modifications for ADL. 3=Patient will improve strength/tolerance for activity to enable patient to perform ADL's. OT Education/Plan Problem List/Assessment Assessment: Decreased Activ Tolerance, Decreased UE Strength, Impaired Funct Balance, Impaired I ADL's, Impaired Self-Care Skills Discharge Recommendations Plan/Recommendations: Continue POC Treatment Plan/Plan of Care Patient would benefit from OT for education, treatment and training to promote independence in ADL's, mobility, safety and/or upper extremity function for ADL's. Plan of Care: ADL Retraining, Functional Mobility, Group Exercise/Act as Ind, UE Funct Exercise/Act Treatment Duration: Jun 17, 2023 Frequency: At least 5 of 7 days/Wk (IRF) Estimated Hrs Per Day: 1.5 hours per day Agreement: Yes Rehab Potential: Good Time Start Time: 11:00 Stop Time: 11:30 DATE: May 30, 2023 Total Time Billed (hr/min): 30 Billed Treatment Time 1, FA 2 DELMAR ARAIZA OT May 30, 2023 11:49
[2023-05-30] MEDS: HYDROcodone/ACETAMINOPHEN 5 MG/325 MG TABLET PO PRN ×2 (13:50→20:57)
--- NOTE | 2023-05-30 14:32 | Physical Therapy Evaluation ---
PT Evaluation-General Medical Diagnosis Admission Date May 29, 2023 at 09:51 Medical Diagnosis: s/p L RUBEN Onset Date: May 24, 2023 Therapy Diagnosis Therapy Diagnosis: impaired mobility, decreased safety (hip precautions), hip pain Precautions Precautions/Isolations: Fall Prevention, Standard Precautions Weight Bear Status Right Lower Extremity: Right Full Weight Bearing Left Lower Extremity: Left Weight Bearing/Tolerated Referral Physician: Jody Medical History Pertinent Medical History: Arthritis, GERD, HTN Additional Medical History Hx aortic valve replacement, HLD, UI, asthma, anemia. Reviewed History: Yes Social History Home: Multilevel Current Living Status: Significant Other Entry Into Home: Stairs With Railing (has wall handles by steps) PT Steps Into Home: 1 Lives on 1 level. Prior Prior Level of Function SCALE: Activities may be completed with or without assistive devices. 2-Hqpqqyqtyk-tziwsfh completes the activity by him/herself with no assistance from a helper. 5-Set-up or Clean-up Assistance-helper sets up or cleans up; patient completes activity. [place] assists only prior to or following the activity. 4-Supervision or Touching Assistance-helper provides verbal cues and/or touching/steadying and/or contact guard assistance as patient completes activity. Assistance may be provided throughout the activity or intermittently. 3-Partial/Moderate Assistance-helper does LESS THAN HALF the effort. [place] li fts, holds or supports trunk or limbs, but provides less than half the effort. 2-Substantial/Maximal Assistance-helper does MORE THAN HALF the effort. [place] lifts or holds trunk or limbs and provides more than half the effort. 3-Pzlgvvmso-zmljvf does ALL the effort. Patient does none of the effort to complete the activity. Or, the assistance of 2 or more helpers is required for the patient to complete the activity. If activity was not attempted, code reason: 7-Patient Refused. 9-Not Applicable-not attempted and the patient did not perform the activity before the current illness, exacerbation or injury. 10-Not Attempted due to Environmental Limitations-(lack of equipment, weather restraints, etc.). 88-Not Attempted due to Medical Conditions or Safety Concerns. Bed Mobility: 6 Transfers (B,C,W/C): 6 Gait: 6 Stairs: 6 Wheelchair Mobility: 9 Indoor Mobility (Ambulation): Independent Stairs: Independent Prior Devices Use: None has a "collection of canes", have an old walker "buried somewhere, but it is old and dirty" - she does not know if it has wheels. usually drives, but she can. Has a cleaning lady 1x/week. Patient and handle laundry. Patient was doing most of the cooking. PT Evaluation-Current Subjective Patient states she has ~ 2/10 pain this a.m. in (L) hip. She is able to recall "do not bend past 90 and do not cross legs", as precautions. However, cued patient to not cross ankles while sitting EOB. Pain Section J - Health Conditions 1. Rarely or not at all 2. Occasionally 3. Frequently 4. Almost constantly 8. Unable to answer Pain Effect on Sleep: 1 Pain Interference with Therapy: 1 Pain Interference w/Day-to-Day: 1 Pt/Family Goals To return home /c . ROM/Strength ROM Upper Extremities defer to OT ROM Lower Extremities WFL (R), limited (L) hip AROM due to pain. Has standard posterior hip precautions (L). Strength Upper Extremities defer to OT Strength Lower Extremities MMT in sitting: (R) ankle 5/5, (R) knee 4/5, (R) hip flexion 4/5, (R) hip abd/add 3+/5. (L) ankle 4/5, (L) knee 4/5, (L) hip flexion 3-/5, (L) hip abd/add 2+/5. Sensory Vision: Wears Glasses Hearing: Hearing Aid/Aides Hand Dominance: Right Sensation Right Lower Extremit: Intact Sensation Left Lower Extremity: Intact Transfers Roll Left & Right (QC): 3 ((I) to (L) with hand rail, min (A) to (R) to keep legs from crossing.) Sit to Lying (QC): 3 (min (A) to move (L) leg) Lying to Sitting/Side of Bed(Q: 3 (Min (A) to move (L) leg) Sit to Stand (QC): 3 (/c cues to kick (L) leg out prior to sit<>stand) Chair/Nmt-ir-Fhmtr Xfer(QC): 3 (/c FWW ) Toilet Transfer (QC): 3 (Min (A) /c patient able to manage hygiene and clothing CGA in standing) Car Transfer (QC): 3 (Min (A) /c (L) LE assist.) Gait Does the Patient Walk?: Yes Mode of Locomotion: Walk Anticipated Mode of Locomotion: Walk Walk 10 feet (QC): 4 (CGA /c FWW) Walk 50 ft with 2 Turns(QC): 4 (CGA /c FWW) Walk 150 ft (QC): 88 (unable to meet distance - fatigue) Walking 10ft/uneven surface-QC: 3 (Min (A) /c FWW) Distance: 87' /c FWW Gait Assistive Device: FWW Comments/Gait Description Antalgic over (L) LE Wheelchair Training Does the Pt Use a Wheelchair?: No Wheel 50 ft with 2 turns (QC): 9 Wheel 150 ft (QC): 9 Stairs 1 Step (curb) (QC): 3 (Min (A) /c safety cues for safe technique for FWW use x 2) 4 Steps (QC): 3 (Min (A) /c (B) rails) 12 Steps (QC): 88 (NT due to fatigue) Balance Sitting Static: Good Sitting Dynamic: Fair Standing Static: Fair Standing Dynamic: Fair Picking up an Object (QC): 4 (CGA /c communications coordinator use) Special Test Comments Elderly Mobility Index: 01/27 Treatment Hip precaution review with copy of precautions given to patient and posted in room. Gait training /c cues for heel/toe gait and using UE's to decrease WB on (L) LE. Additional stair and curb training with discussion of stepping up with good/nonsurgical leg first and stepping down with bad/surgical leg first. Patient able to retain this instruction and complete CGA x 2 more attempts at s tairs a,d CGA-min (A) of curb - assist mainly for walker management on curb. Assessment/Needs 83 year old female s/p (L) THR on 05/24/23. has resultant pain, hip weakness as well as mobility deficits, and safety awareness deficits with hip precautions. Would benefit from ARU stay to maximize safety with functional mobility prior to return home with . Rehab Potential: Good Equipment Needs FWW, hip kit, 3-in-1 commode or toilet riser. PT Marksmanship Instructor Goals Marksmanship Instructor Goals PT Marksmanship Instructor Goals Time Frame: Jun 13, 2023 Roll Left to Right (QC): 6 (/c pillow between knees) Sit to Lying (QC): 6 (/c leg senior operations manager if needed) Lying-Sitting on Side/Bed(QC): 6 (/c leg senior operations manager if needed) Sit to Stand (QC): 6 Chair/Ztn-rh-Aoinc Xfer(QC): 6 (/c FWW) Toilet/Commode Transfer (QC): 6 Car Transfer (QC): 5 (set up to move seat back ) Does the Patient Walk: Yes Walk 10 feet (QC): 6 (/c FWW) Walk 10ft-Uneven Surface(QC): 6 (/c FWW) Walk 50ft with 2 Turns (QC): 6 (/c FWW) Walk 150 ft (QC): 6 (/c FWW) Does the Pt use WC or Scooter?: No Wheel 50 feet with 2 turns (QC: 9 Wheel 150 feet: 9 1 Step (curb) (QC): 6 (/c FWW) 4 Steps (QC): 6 (/c railings) 12 Steps (QC): 6 (/c railings) Picking up an Object (QC): 6 (/c communications coordinator) Elderly Mobility Scale: PT Plan Problem List Problem List: Activity Tolerance, Functional Strength, Safety, Balance, Gait, Transfer, Bed Mobility, ROM Treatment/Plan Treatment Plan: Continue Plan of Care Treatment Plan: Bed Mobility, Concurrent Therapy, Education, Functional Activity Jp, Functional Strength, Group Therapy, Gait, Safety, Therapeutic Exercise, Transfers Treatment Duration: Jun 13, 2023 Frequency: At least 5 of 7 days/Wk (IRF) Estimated Hrs Per Day: 1.5 hours per day Safety Risks/Education Patient Education: Gait Training, Reviewed Precautions Teaching Recipient: Patient Teaching Methods: Demonstration, Handout, Discussion, Audiovisual Response to Teaching: Reinforcement Needed Discharge Recommendations Therapy Discharge Recommendati: Meals on Wheels, Bath Aide, Other, See Comments, Home & Family, Post Acute PT Time Time In: 1130 (1300) Time Out: 1200 (1345) DATE: May 30, 2023 Total Billed Treatment Time: 75 Total Billed Treatment 1 EVM 11-11:30, [id number] = GT2, FA1 Kari Whitfield PT May 30, 2023 14:32
--- NOTE | 2023-05-30 15:13 | ST Cognitive Linguistic Eval ---
Speech Evaluation-General Medical Diagnosis s/p L RUBEN Onset Date: May 24, 2023 Therapy Diagnosis Therapy Diagnosis: Na Precautions Precautions: Fall Precautions/Isolations: Standard Precautions Referral Referring Physician: Dr. Vera Reason for Referral: Evaluation/Treatment Medical History Pertinent Medical History: Arthritis, GERD, HTN Mechanical Aortic Valve Replacement, high cholesterol, hypertension, Valvular heart disease, GERD, arthritis Current History s/p L RUBEN Social History Current Living Status: Significant Other Speech PLF-Current Status Prior Level of Function Pt reports independence with ADLs, including, cooking, light cleaning, laundry, medication management, and financial professional. Pt states she has a private household worker that comes 5 hours a week. Subjective Pt was laying in bed and agreeable to session. Pt reports no pain, as she just had pain medication. Language Eval: Auditory Comprehends Simple Yes/No Ques: Functional Follows 1-Step Commands: Functional Follows Complex Directions: Functional Follows General Conversations: Functional Language Eval: Verbal Language Completes Spontaneous Greeting: Functional Imitates Simple Words/Phrases: Functional Requests Basic Needs: Functional States Basic Personal Info: Functional Expresses Complex Ideas: Functional Language Evaluation: Reading Follows Simple Written Direct: Functional Comprehends Multiple Sentences: Functional Language Evaluation: Writing Writes to Simple Dictation: Functional Cognitive Patient Orientation Pt oriented 100%. Objective Cognitive Domain Memory: WNL Visuospatial Skills: WNL Clock Drawing Severity Rating: WNL Objective Formal/Standardized Tests MMSE and bedside swallow screen Results Pt scores 29/30 on the MMSE. Scoring WFL. Pt did not recall 1 word on delayed recall task, but was able to recall with cue. Bedside swallow screen was given. Pt passes and reports no s/s of aspiration during PO intake. Impression Pt demonstrates WFL for cognition. ST is not required at this time. Speech-Plan Treatment Plan Speech Therapy Treatment Plan: Discontinue ST Pt demonstrates WFL for cognition. ST is not required at this time. Treatment Duration: May 30, 2023 Frequency: 1 time per week Estimated Hrs Per Day: Other (Pt demonstrates WFL for cognition. ST is not required at this time. ) Rehab Potential: Good Pt/Family Agrees to Plan: Yes Time Speech Therapy Time In: 14:30 Speech Therapy Time Out: 15:00 DATE: May 30, 2023 Total Billed Time: 30 Billed Treatment Time 1 SPSNDCOMP 30 min Juana Holt May 30, 2023 15:13
[2023-05-30] MEDS: warFARin 4 MG (COUMADIN) TAB PO SCH (18:07)
[2023-05-30] MEDS: warFARin 1 MG (COUMADIN) TAB PO SCH (18:07)
[2023-05-30 20:05] VITALS: BP 122/61
[2023-05-30] MEDS: ALPRAZolam 1 MG TABLET PO SCH (20:57)
[2023-05-31] MEDS: ENOXAPARIN 60 MG/0.6 ML SYRINGE SC SCH ×2 (06:26→17:31)
[2023-05-31 08:00] VITALS: BP 126/59
--- NOTE | 2023-05-31 08:04 | Individualized Plan of Care ---
Individualized Plan of Care Rehab Nursing IPOC Order Admission Date May 29, 2023 at 09:51 Current Orders Orders Admission Order(Inpt,Obs,Sdc) (05/29/23 08:59) Vital Signs: Per Unit Policy ( 08,16,00 (05/29/23 08:59) Lucas Stringer , (05/29/23 08:59) Sequential Compression Device [id number] (05/29/23 08:59) Hot Dip Galvanizer-Inpt Rehab Con (05/29/23 08:59) Rehab Nursing Orders-Ipoc (05/29/23 08:59) Physical Therapy Rehab Orders (05/29/23 08:59) Occupational Therapy Rehab Ord (05/29/23 08:59) Speech Therapy Rehab Orders (05/29/23 08:59) Cbc And Automated Diff (05/30/23 06:00) Comprehensive Metabolic Panel (05/30/23 06:00) Precautions (Aru) (05/29/23 08:59) Weekly Weight WEEK (05/29/23 08:59) Rehab-Intensity Of Therapy (05/29/23 08:59) Initiate Admission Nursing Pro .admission (05/29/23 08:59) Alprazolam Tablet (Alprazolam Tablet) (05/29/23 09:00) Calcium Carbonate Chew Tablet (Calcium C (05/29/23 09:00) Diphenhydramine Tablet (Diphenhydramine (05/29/23 09:00) Docusate Sodium Capsule (Docusate Sodium (05/29/23 09:00) Docusate Sodium Capsule (Docusate Sodium (05/29/23 09:00) Bisacodyl Suppository (Bisacodyl Supposi (05/29/23 09:00) Lactulose Oral Solution (Enulose Oral So (05/29/23 09:00) Na Phos/Na Biphos Adult Enema (Na Phos/N (05/29/23 09:00) Guaifenesin/Codeine Syrup (Guaifenesin/C (05/29/23 09:00) Loperamide Capsule (Loperamide Capsule) (05/29/23 09:00) Melatonin Tablet (Melatonin Tablet) (05/29/23 09:00) Polyethylene Glycol Powder (Polyethylen (05/29/23 09:00) Ondansetron Oral Dissolve Tab (Ondanset (05/29/23 09:00) Senna W/Docusate Tablet (Senna W/Docusat (05/29/23 09:00) Acetaminophen Tablet (Acetaminophen Ta (05/29/23 09:00) Initiate Admission Nursing Pro .admission (05/29/23 08:59) Admission Arrival Bed Request (05/29/23 09:51) General/Regular (05/29/23 Lunch) Ensure Plus Vanilla (05/29/23 12:17) Albuterol Pre-Mix Nebs (Rt) (Albuterol (05/29/23 13:00) Alprazolam Tablet (Alprazolam Tablet) (05/29/23 21:00) Cyanocobalamin Tablet (Cyanocobalamin Ta (05/30/23 09:00) Hydrocodone/Apap 5/325 Tablet (Hydrocod (05/29/23 13:00) Sucralfate Tablet (Sucralfate Tablet) (05/29/23 18:00) Warfarin Tablet (Coumadin Tablet) (05/29/23 18:00) Warfarin Tablet (Coumadin Tablet) (05/29/23 18:00) (Nf) Albuterol Sulfate (05/30/23 09:00) Calcium Carbonate + Vitamin D3 (Calcium (05/30/23 09:00) (Nf) [Prevagen] (05/30/23 09:00) Svn Small Volume Nebulizer (05/29/23 12:47) Protime With Inr (05/30/23 06:00) Fluticasone/Vilanterol 100 Mcg (Fluticas (05/30/23 08:00) Follow-Up Appointment (05/29/23 15:05) Code/Resuscitation (05/29/23 19:05) Enoxaparin Injection (05/30/23 07:30) Patient Visit (05/30/23 ) Pt Eval Moderate Complexity (05/30/23 ) Patient Visit (05/30/23 ) Gait Training, Ea 15 Min (05/30/23 ) Functional Activities, Ea 15 (05/30/23 ) Patient Visit (05/30/23 ) Speech Sound Lang Comp (05/30/23 ) Protime With Inr (06/01/23 06:00) Iron Test (Fe) (05/31/23 04:51) Vitamin B 12 (05/31/23 04:51) Patient Visit (05/31/23 ) Exercise Therap, Ea 15 Min (05/31/23 ) Gait Training, Ea 15 Min (05/31/23 ) Patient Visit (05/31/23 ) Exercise Therap, Ea 15 Min (05/31/23 ) Gait Training, Ea 15 Min (05/31/23 ) Rehab Nursing Orders: Ongoing Assess. of Cognitive Status, Ongoing Assess. of Function Status, Bladder Management, Bladder Scan, Bladder Training, Bowel Management, Bowel Training, Disease Management & Educaiton, DVT Prophylaxis, Fall Prevention, Fluid/Electrolyte/Nutrition Mgmt, Infection Prevention, Medication Management & Education, Management of Risks & Complications, Nutrition Management, Pain Management, Patient/Family Support, Safety Management Intensity of Therapy to be met Patient to be seen: Min.3h per day/5 of 7d PT IPOC Problem List: Activity Tolerance, Functional Strength, Safety, Balance, Gait, Transfer, Bed Mobility, ROM Treatment Plan: Continue Plan of Care Bed Mobility, Concurrent Therapy, Education, Functional Activity Jp, Functional Strength, Group Therapy, Gait, Safety, Therapeutic Exercise, Transfers Treatment Duration: Jun 13, 2023 Frequency: At least 5 of 7 days/Wk (IRF) Estimated Hrs Per Day: 1.5 hours per day OT IPOC Problems: Decreased Activ Tolerance, Decreased UE Strength, Impaired Funct Balance, Impaired I ADL's, Impaired Self-Care Skills OT Treatment, Training and Edu: Yes Plan of Care: ADL Retraining, Functional Mobility, Group Exercise/Act as Ind, UE Funct Exercise/Act Treatment Duration: Jun 17, 2023 Frequency: At least 5 of 7 days/Wk (IRF) Estimated Hrs Per Day: 1.[address] IPOC Speech Therapy Treatment Plan: Discontinue ST Treatment Duration: May 30, 2023 Frequency: 1 time per week Estimated Hrs Per Day: Other (Pt demonstrates WFL for cognition. ST is not required at this time. ) Hot Dip Galvanizer/Case Mgmt Hot Dip Galvanizer/Case Managemen: Discharge Planning Dietitian/Aircraft Charter Dispatcher Dietitian/Aircraft Charter Dispatcher to monitor nutritional status and make changes and/or recommendations as needed and work with speech pathology on dietary upgrades as the occur. Physician IPOC Medical Issues being managed closely and that require the 24 hour availability of a physician: Recent fall with hip fracture and decline in status along with mechanical heart valve needing Coumadin management with h/o acute blood loss anemia will require close monitoring for decompensation Medical Issues: Bowel/Bladder Function, DVT Prophylaxis, Falls Precautions, Fluid/Electrolyte/Nutrition Balance, Infection Protection, Pain Management, Weight Bearing Precautions, Wound Care Brief Synthesis of Preadmission Screen, Post-Admission Evaluation, and Therapy Evaluations: PT OT will focus on regaining function with the use of AD in order to ambulate without falls and increase strength in transfers in order to return to independent living Medical Prognosis: Good Anticipated Length of Stay: 10 days BIBI HOGUE DO May 31, 2023 08:04
--- NOTE | 2023-05-31 08:13 | PM&R Progress Note ---
Subjective HPI/CC On Admission Date Seen by Provider: May 31, 2023 Time Seen by Provider: 12:00 Subjective/Events-last exam 05/31/2023: Patient doing well Pain is controlled Slow recovery Checking INR tomorrow Maintain on Lovenox bridge 05/30/2023: Patient much improved Pain controlled Labs stable INR 1.3 so initiated Lovenox injections to bridge to protect valve No falls Review of Systems Musculoskeletal: leg pain Objective Exam Vital Signs Vital Signs Date Time Temp Pulse Resp B/P (MAP) Pulse Ox O2 Delivery O2 Flow Rate FiO2 05/31/23 21:10 Room Air 05/31/23 20:18 36.3 97 20 106/56 (73) 95 Capillary Refill : General Appearance: No Apparent Distress, WD/WN, Chronically ill HEENT: PERRL/EOMI, Normal ENT Inspection, Pharynx Normal Neck: Full Range of Motion, Normal Inspection, Non Tender, Supple, Carotid Bruit Respiratory: Chest Non Tender, Lungs Clear, Normal Breath Sounds, No Accessory Muscle Use, No Respiratory Distress Cardiovascular: Regular Rate, Rhythm, No Edema, No Gallop, No JVD, No Murmur, Normal Peripheral Pulses, Other (click) Gastrointestinal: Normal Bowel Sounds, No Organomegaly, No Pulsatile Mass, Non Tender, Soft Back: Normal Inspection, No CVA Tenderness, No Vertebral Tenderness Extremity: Normal Capillary Refill, Normal Inspection, Normal Range of Motion (except left leg), Non Tender, No Calf Tenderness, No Pedal Edema Neurologic/Psychiatric: Alert, Oriented x3, No Motor/Sensory Deficits, Normal Mood/Affect, Abnormal Gait, Motor Weakness (left leg) Skin: Normal Color, Warm/Dry Lymphatic: No Adenopathy Results/Procedures Lab Patient resulted labs reviewed. FIM Transfers Therapy Code Descriptions/Definitions Functional [place] Measure: 0=Not Assessed/NA 4=Minimal Assistance 1=Total Assistance 5=Supervision or Setup 2=Maximal Assistance 6=Modified [place] 3=Moderate Assistance 7=Complete IndependenceSCALE: Activities may be completed with or without assistive devices. 9-Rsnaqcyxlf-eqeoeie completes the activity by him/herself with no assistance from a helper. 5-Set-up or Clean-up Assistance-helper sets up or cleans up; patient completes activity. [place] assists only prior to or following the activity. 4-Supervision or Touching Assistance-helper provides verbal cues and/or touching/steadying and/or contact guard assistance as patient completes activity. Assistance may be provided throughout the activity or intermittently. 3-Partial/Moderate Assistance-helper does LESS THAN HALF the effort. [place] lifts, holds or supports trunk or limbs, but provides less than half the effort. 2-Substantial/Maximal Assistance-helper does MORE THAN HALF the effort. [place] lifts or holds trunk or limbs and provides more than half the effort. 1-Ooisyumio-jvuyef does ALL the effort. Patient does none of the effort to complete the activity. Or, the assistance of 2 or more helpers is required for the patient to complete the activity. If activity was not attempted, code reason: 7-Patient Refused. 9-Not Applicable-not attempted and the patient did not perform the activity before the current illness, exacerbation or injury. 10-Not Attempted due to Environmental Limitations-(lack of equipment, weather restraints, etc.). 88-Not Attempted due to Medical Conditions or Safety Concerns. Roll Left to Right (QC): 3 ((I) to (L) with hand rail, min (A) to (R) to keep legs from crossing.) Sit to Lying (QC): 3 (min (A) to move (L) leg) Sit to Stand (QC): 3 (/c cues to kick (L) leg out prior to sit<>stand) Chair/Fgu-tk-Fomnh Xfer(QC): 3 (/c FWW ) Car Transfer (QC): 3 (Min (A) /c (L) LE assist.) Gait Training Does the Patient Walk?: Yes Walk 10 feet (QC): 4 (CGA /c FWW) Walk 50 ft with 2 Turns(QC): 4 (CGA /c FWW) Walk 150 ft (QC): 88 (unable to meet distance - fatigue) Walking 10ft/uneven surface-QC: 3 (Min (A) /c FWW) Gait Assistive Device: FWW Wheelchair Training Does the Pt Use a Wheelchair?: No Wheel 50 ft with 2 turns (QC): 9 Wheel 150 ft (QC): 9 Stair Training 1 Step (curb) (QC): 3 (Min (A) /c safety cues for safe technique for FWW use x 2) 4 Steps (QC): 3 (Min (A) /c (B) rails) 12 Steps (QC): 88 (NT due to fatigue) Balance Picking up an Object (QC): 4 (CGA /c business services manager use) ADL-Treatment Eating (QC): 5 (per pt report) Oral Hygiene (QC): 5 (Per RN report) Shower/Bathe Self (QC): 3 (assist BLEs lower legs/feet due to hip precautions.) Upper Body Dressing (QC): 5 Lower Body Dressing (QC): 2 (Max A due to hip precautions. ) On/Off Footwear (QC): 1 (total assist due to hip precautions.) Toileting Hygiene (QC): 4 (CGA) Assessment/Plan Assessment and Plan Assess & Plan/Chief Complaint Assessment: Left hip fracture Mechanical heart valve Warfarin anticoagulation HTN Post op anemia from blood loss Poor nutrition B12 def maintained on supplement GERD Iron deficiency 05/30/2023: Continue aggressive therapy Pain control Lovenox bridge 05/31/2023: Check INR tomorrow Continue therapy IV iron infusion 3 doses (1) Femoral neck fracture Status: Acute BIBI HOGUE DO May 31, 2023 08:13
[2023-05-31] MEDS: SUCRALFATE 1 GM TABLET PO SCH ×2 (08:20→17:30)
[2023-05-31] MEDS: CYANOCOBALAMIN 1,000 MCG TABLET PO SCH (08:20)
[2023-05-31] MEDS: CALCIUM CARBONATE 600 MG +VITAMIN D TABLET PO SCH (08:20)
[2023-05-31] MEDS: HYDROcodone/ACETAMINOPHEN 5 MG/325 MG TABLET PO PRN (08:21)
[2023-05-31] MEDS: SENNA W/DOCUSATE TABLET PO SCH ×2 (09:22→21:00)
[2023-05-31] MEDS: DOCUSATE SODIUM 100 MG CAPSULE PO SCH ×2 (09:22→21:00)
--- NOTE | 2023-05-31 09:31 | Occupational Ther Daily Note ---
OT Current Status-Daily Note Subjective Pt agreeable to OT tx, does not c/o pain during tx. ADL-Treatment Therapy Code Descriptions/Definitions Functional [place] Measure: 0=Not Assessed/NA 4=Minimal Assistance 1=Total Assistance 5=Supervision or Setup 2=Maximal Assistance 6=Modified [place] 3=Moderate Assistance 7=Complete IndependenceSCALE: Activities may be completed with or without assistive devices. 0-Mgocrrnitu-hwekfaa completes the activity by him/herself with no assistance from a helper. 5-Set-up or Clean-up Assistance-helper sets up or cleans up; patient completes activity. [place] assists only prior to or following the activity. 4-Supervision or Touching Assistance-helper provides verbal cues and/or touching/steadying and/or contact guard assistance as patient completes activity. Assistance may be provided throughout the activity or intermittently. 3-Partial/Moderate Assistance-helper does LESS THAN HALF the effort. [place] lifts, holds or supports trunk or limbs, but provides less than half the effort. 2-Substantial/Maximal Assistance-helper does MORE THAN HALF the effort. [place] lifts or holds trunk or limbs and provides more than half the effort. 8-Slvulxznx-zyflof does ALL the effort. Patient does none of the effort to complete the activity. Or, the assistance of 2 or more helpers is required for the patient to complete the activity. If activity was not attempted, code reason: 7-Patient Refused. 9-Not Applicable-not attempted and the patient did not perform the activity before the current illness, exacerbation or injury. 10-Not Attempted due to Environmental Limitations-(lack of equipment, weather restraints, etc.). 88-Not Attempted due to Medical Conditions or Safety Concerns. Shower/Bathe Self (QC): 4 (SBA. LH sponge used for LB bathing) Upper Body Dressing (QC): 5 Lower Body Dressing (QC): 3 (Min A doffing using flare maker, CGA with donning.) On/Off Footwear: 3 (Min A doffing/donning using AE) Other Treatment Pt in bed, transferred supine to sit EOB, min A with LLE. Pt stood from EOB with CGA, then used FWW to transfer into bathroom, onto ME, SBA. Pt completed shower, education provided on adaptive techniques to wash/dry BLEs lower legs/feet utilizing LHsponge. SBA provided in stand while pt washed/dried periarea/buttocks, and SBA for hip precautions. Pt donned clothes using AE for LE dressing, min VCs for technique. Pt used FWW to transfer to chair with arm rests in room, SBA. Post tx, pt in chair, call light in reach and all needs met. Education OT Patient Education: Correct positioning, Energy conservation, Modified ADL techniques, Progress toward Goal/Update tx plan, Purpose of tx/functional activities, Rehab process, Safety issues, Use of adapted equipment Teaching Recipient: Patient Teaching Methods: Discussion Response to Teaching: Verbalize Understanding OT Short Term Goals Short Term Goals Time Frame: Jun 08, 2023 Shower/bathe self: 5 Upper body dressin Lower body dressin Putting on/taking off footwear: 5 OT Halfway Goals Customer Engineer Goals Time Frame: Jun 17, 2023 Acute change in mental status: 0 Inattention: 0 Disorganized thinkin Altered level of consciousness: 0 Eating (QC): 6 Oral Hygiene (QC): 6 Toileting Hygiene (QC): 6 Shower/Bathe Self (QC): 6 Upper Body Dressing (QC): 6 Lower Body Dressing (QC): 6 On/Off Footwear (QC): 6 Additional Goals: 1-Demonstrate ADL Tasks, 2-Verbalize Understanding, 3-Im proveStrength/Jp 1=Demonstrate adherence to instructed precautions during ADL tasks. 2=Patient will verbalize/demonstrate understanding of assistive devices/modifications for ADL. 3=Patient will improve strength/tolerance for activity to enable patient to perform ADL's. OT Education/Plan Problem List/Assessment Assessment: Decreased Activ Tolerance, Decreased UE Strength, Impaired Funct Balance, Impaired I ADL's, Impaired Self-Care Skills Discharge Recommendations Plan/Recommendations: Continue POC Treatment Plan/Plan of Care Patient would benefit from OT for education, treatment and training to promote independence in ADL's, mobility, safety and/or upper extremity function for ADL's. Plan of Care: ADL Retraining, Functional Mobility, Group Exercise/Act as Ind, UE Funct Exercise/Act Treatment Duration: Jun 17, 2023 Frequency: At least 5 of 7 days/Wk (IRF) Estimated Hrs Per Day: 1.5 hours per day Agreement: Yes Rehab Potential: Good Time Start Time: 08:30 Stop Time: 09:30 DATE: May 31, 2023 Total Time Billed (hr/min): 60 Billed Treatment Time 1, ADL 4 DELMAR ARAIZA OT May 31, 2023 09:31
[2023-05-31] MEDS: FLUTICASONE/VILANTEROL 100/25 MCG (14 DOSES) IH SCH (09:45)
--- NOTE | 2023-05-31 14:26 | Occupational Ther Daily Note ---
OT Current Status-Daily Note Subjective Pt. alert laying in bed. No c/o pain. Pt. agreed to therapy. Mental Status/Objective Patient Orientation: Person, Place, Time, Situation ADL-Treatment Therapy Code Descriptions/Definitions Functional [place] Measure: 0=Not Assessed/NA 4=Minimal Assistance 1=Total Assistance 5=Supervision or Setup 2=Maximal Assistance 6=Modified [place] 3=Moderate Assistance 7=Complete IndependenceSCALE: Activities may be completed with or without assistive devices. 1-Lyfyzhnhho-tdumqah completes the activity by him/herself with no assistance from a helper. 5-Set-up or Clean-up Assistance-helper sets up or cleans up; patient completes activity. [place] assists only prior to or following the activity. 4-Supervision or Touching Assistance-helper provides verbal cues and/or touching/steadying and/or contact guard assistance as patient completes activity. Assistance may be provided throughout the activity or intermittently. 3-Partial/Moderate Assistance-helper does LESS THAN HALF the effort. [place] lifts, holds or supports trunk or limbs, but provides less than half the effort. 2-Substantial/Maximal Assistance-helper does MORE THAN HALF the effort. [place] lifts or holds trunk or limbs and provides more than half the effort. 6-Fdqomowpl-mpyezz does ALL the effort. Patient does none of the effort to complete the activity. Or, the assistance of 2 or more helpers is required for the patient to complete the activity. If activity was not attempted, code reason: 7-Patient Refused. 9-Not Applicable-not attempted and the patient did not perform the activity before the current illness, exacerbation or injury. 10-Not Attempted due to Environmental Limitations-(lack of equipment, weather restraints, etc.). 88-Not Attempted due to Medical Conditions or Safety Concerns. On/Off Footwear: 3 Other Treatment Educated pt on AE for donning footwear adhering to hip precautions. Elastic shoelaces placed in tie shoes. Pt. demonstrated use of LH shoehorn with increased time, will educated pt tomorrow on shoe funnel which may work better for pt's type of shoe. After session, pt in laying in bed with call light and phone in reach and all needs met. Education OT Patient Education: Use of adapted equipment Teaching Recipient: Patient Teaching Methods: Demonstration, Discussion Response to Teaching: Verbalize Understanding, Return Demonstration OT Short Term Goals Short Term Goals Time Frame: Jun 08, 2023 Shower/bathe self: 5 Upper body dressin Lower body dressin Putting on/taking off footwear: 5 OT Painter And Decorator Goals Painter And Decorator Goals Time Frame: Jun 17, 2023 Acute change in mental status: 0 Inattention: 0 Disorganized thinkin Altered level of consciousness: 0 Eating (QC): 6 Oral Hygiene (QC): 6 Toileting Hygiene (QC): 6 Shower/Bathe Self (QC): 6 Upper Body Dressing (QC): 6 Lower Body Dressing (QC): 6 On/Off Footwear (QC): 6 Additional Goals: 1-Demonstrate ADL Tasks, 2-Verbalize Understanding, 3- ImproveStrength/Jp 1=Demonstrate adherence to instructed precautions during ADL tasks. 2=Patient will verbalize/demonstrate understanding of assistive devices/modifications for ADL. 3=Patient will improve strength/tolerance for activity to enable patient to perform ADL's. OT Education/Plan Problem List/Assessment Assessment: Decreased UE Strength, Impaired Funct Balance, Impaired Self-Care Skills Discharge Recommendations Plan/Recommendations: Continue POC Treatment Plan/Plan of Care Patient would benefit from OT for education, treatment and training to promote independence in ADL's, mobility, safety and/or upper extremity function for ADL's. Plan of Care: ADL Retraining, Functional Mobility, Group Exercise/Act as Ind, UE Funct Exercise/Act Treatment Duration: Jun 17, 2023 Frequency: At least 5 of 7 days/Wk (IRF) Estimated Hrs Per Day: 1.5 hours per day Agreement: Yes Rehab Potential: Good Time Start Time: 13:30 Stop Time: 14:00 DATE: May 31, 2023 Total Time Billed (hr/min): 30 Billed Treatment Time 1 visit- FA 2 (30 mins) TRISH WYNN May 31, 2023 14:26
--- NOTE | 2023-05-31 16:09 | Physical Therapy Daily Note ---
PT Daily Note-Current Subjective Pt presents sitting in chair with B feet on floor. Pt denies pain and states she had pain meds this AM. Pt agreeable to tx. Pain Section J - Health Conditions 1. Rarely or not at all 2. Occasionally 3. Frequently 4. Almost constantly 8. Unable to answer Pain Effect on Sleep: 1 Pain Interference with Therapy: 1 Pain Interference w/Day-to-Day: 1 Mental Status Patient Orientation: Person, Place, Time, Situation Transfers SCALE: Activities may be completed with or without assistive devices. 3-Ialzwukqpu-yiwgbfz completes the activity by him/herself with no assistance from a helper. 5-Set-up or Clean-up Assistance-helper sets up or cleans up; patient completes activity. [place] assists only prior to or following the activity. 4-Supervision or Touching Assistance-helper provides verbal cues and/or touching/steadying and/or contact guard assistance as patient completes activity. Assistance may be provided throughout the activity or intermittently. 3-Partial/Moderate Assistance-helper does LESS THAN HALF the effort. [place] lifts, holds or supports trunk or limbs, but provides less than half the effort. 2-Substantial/Maximal Assistance-helper does MORE THAN HALF the effort. [place] lifts or holds trunk or limbs and provides more than half the effort. 5-Sosnfbuas-njngih does ALL the effort. Patient does none of the effort to complete the activity. Or, the assistance of 2 or more helpers is required for the patient to complete the activity. If activity was not attempted, code reason: 7-Patient Refused. 9-Not Applicable-not attempted and the patient did not perform the activity before the current illness, exacerbation or injury. 10-Not Attempted due to Environmental Limitations-(lack of equipment, weather restraints, etc.). 88-Not Attempted due to Medical Conditions or Safety Concerns. Roll Left & Right (QC): 4 Sit to Lying (QC): 3 (min-modA with LE) Lying to Sitting/Side of Bed(Q: 3 (min-modA with LE) Sit to Stand (QC): 4 Chair/Tfj-ip-Qarxe Xfer(QC): 4 Weight Bearing Right Lower Extremity: Right Full Weight Bearing Left Lower Extremity: Left Weight Bearing/Tolerated Gait Training Does the Patient Walk?: Yes Walk 10 feet (QC): 4 Walk 50 ft with 2 Turns(QC): 4 Gait Assistive Device: FWW Pt amb 80' x 2 with FWW, CGA for safety. Wheelchair Training Does the Pt Use a Wheelchair?: No Exercises Supine Ex: Ankle pumps, Quad Set, Rolling, Glut sets, Heel Slides, Straight leg raise, Hip abd/add Supine Reps: 10 THER EX: Side-lying (B) LE: Clam shells, Hip ABD with [place] x 10 reps. Standing (B) LE toe taps on stair ( L LE could not reach stair ledge completely) x 10 reps. Treatments Pt amb from room to PT gym and conducted supine/standing ther ex. Pt required multiple RB's secondary to pain and fatigue. Pt amb from PT gym back to room. Post tx with pt in bed, call light within reach and all needs met. Assessment Current Status: Good Progress Pt demonstrates lack of strength in (L) hip flexors secondary s/p L RUBEN. PT Production Support Analyst Goals Production Support Analyst Goals PT Mcc Goals Time Frame: Jun 13, 2023 Roll Left & Right (QC): 6 (/c pillow between knees) Sit to Lying (QC): 6 (/c leg real estate leasing agent if needed) Lying-Sitting on Side/Bed(QC): 6 (/c leg real estate leasing agent if needed) Sit to Stand (QC): 6 Chair/Zac-xv-Egmlo Xfer(QC): 6 (/c FWW) Toilet Transfer (QC): 6 Car Transfer (QC): 5 (set up to move seat back ) Does the Patient Walk: Yes Walk 10 feet (QC): 6 (/c FWW) Walk 50ft with 2 Turns (QC): 6 (/c FWW) Walk 150 ft (QC): 6 (/c FWW) Walking 10ft on Uneven Surface: 6 (/c FWW) 1 Step (curb) (QC): 6 (/c FWW) 4 Steps (QC): 6 (/c railings) 12 Steps (QC): 6 (/c railings) Picking up an Object (QC): 6 (/c mechanical development engineer) Does the Pt use WC or Scooter?: No Wheel 50 feet with 2 turns (QC: 9 Wheel 150 feet: 9 PT Plan Problem List Problem List: Activity Tolerance, Functional Strength, ROM Treatment/Plan Treatment Plan: Continue Plan of Care Treatment Plan: Bed Mobility, Concurrent Therapy, Education, Functional Activity Jp, Functional Strength, Group Therapy, Gait, Safety, Therapeutic Exercise, Transfers Treatment Duration: Jun 13, 2023 Frequency: At least 5 of 7 days/Wk (IRF) Estimated Hrs Per Day: 1.5 hours per day Patient and/or Family Agrees t: Yes Safety Risks/Education Patient Education: Reviewed Precautions Teaching Recipient: Patient Teaching Methods: Demonstration, Discussion Response to Teaching: Verbalize Understanding, Return Demonstration Able to recite all 3 precautions correctly without prompting. Discharge Recommendations Plan Continue with tx per pt POC. Time Time In: 45 Time Out: 1045 DATE: May 31, 2023 Total Billed Treatment Time: 60 Total Billed Treatment 1, EX3 (50m), GT (10m) [facility] PTA May 31, 2023 16:09
--- NOTE | 2023-05-31 16:25 | Physical Therapy Daily Note ---
PT Daily Note-Current Subjective Pt presents in chair with B feet on floor. Pt denies pain and is agreeable to tx. Pain Section J - Health Conditions 1. Rarely or not at all 2. Occasionally 3. Frequently 4. Almost constantly 8. Unable to answer Pain Effect on Sleep: 1 Pain Interference with Therapy: 1 Pain Interference w/Day-to-Day: 1 Mental Status Patient Orientation: Person, Place, Time, Situation Transfers SCALE: Activities may be completed with or without assistive devices. 0-Lgudzgrfhk-xsrnajr completes the activity by him/herself with no assistance from a helper. 5-Set-up or Clean-up Assistance-helper sets up or cleans up; patient completes activity. [place] assists only prior to or following the activity. 4-Supervision or Touching Assistance-helper provides verbal cues and/or touching/steadying and/or contact guard assistance as patient completes activity. Assistance may be provided throughout the activity or intermittently. 3-Partial/Moderate Assistance-helper does LESS THAN HALF the effort. [place] lifts, holds or supports trunk or limbs, but provides less than half the effort. 2-Substantial/Maximal Assistance-helper does MORE THAN HALF the effort. [place] lifts or holds trunk or limbs and provides more than half the effort. 2-Wxthgeriq-yypmaj does ALL the effort. Patient does none of the effort to complete the activity. Or, the assistance of 2 or more helpers is required for the patient to complete the activity. If activity was not attempted, code reason: 7-Patient Refused. 9-Not Applicable-not attempted and the patient did not perform the activity be fore the current illness, exacerbation or injury. 10-Not Attempted due to Environmental Limitations-(lack of equipment, weather restraints, etc.). 88-Not Attempted due to Medical Conditions or Safety Concerns. Sit to Lying (QC): 3 Sit to Stand (QC): 4 Chair/Ypn-fr-Xtrmt Xfer(QC): 4 Weight Bearing Right Lower Extremity: Right Full Weight Bearing Left Lower Extremity: Left Weight Bearing/Tolerated Gait Training Does the Patient Walk?: Yes Walk 10 feet (QC): 6 Walk 50 ft with 2 Turns(QC): 4 Walk 150 ft (QC): 4 Gait Assistive Device: FWW Pt amb around ARU 150' x 2 with FWW, SBA for safety. Wheelchair Training Does the Pt Use a Wheelchair?: No Exercises Standing: Heel/toe raises, 3 way Ex=Flex, Abd, Ext, Side steps Standing Reps: 10 With (B) UE support on FWW, SBA. No SOB or LOB. Treatments Pt amb from room and around ARU to end of hallway. Pt conducted standing ther ex with no SOB or LOB. Pt amb from end of hallway back to room. Post tx with pt in bed, call light within reach and all needs met. Assessment Current Status: Good Progress Pt increased amb distance with no SOB or LOB. Pt still lacks (L) hip flexor and quad strength, and ROM, for more steady ambulation and standing skills. PT Quill Reamer Goals Quill Reamer Goals PT Quill Reamer Goals Time Frame: Jun 13, 2023 Roll Left & Right (QC): 6 (/c pillow between knees) Sit to Lying (QC): 6 (/c leg board certified family physician if needed) Lying-Sitting on Side/Bed(QC): 6 (/c leg board certified family physician if needed) Sit to Stand (QC): 6 Chair/Whr-dx-Hsrvn Xfer(QC): 6 (/c FWW) Toilet Transfer (QC): 6 Car Transfer (QC): 5 (set up to move seat back ) Does the Patient Walk: Yes Walk 10 feet (QC): 6 (/c FWW) Walk 50ft with 2 Turns (QC): 6 (/c FWW) Walk 150 ft (QC): 6 (/c FWW) Walking 10ft on Uneven Surface: 6 (/c FWW) 1 Step (curb) (QC): 6 (/c FWW) 4 Steps (QC): 6 (/c railings) 12 Steps (QC): 6 (/c railings) Picking up an Object (QC): 6 (/c sap crm developer) Does the Pt use WC or Scooter?: No Wheel 50 feet with 2 turns (QC: 9 Wheel 150 feet: 9 PT Plan Problem List Problem List: Activity Tolerance, Functional Strength, ROM Treatment/Plan Treatment Plan: Continue Plan of Care Treatment Plan: Bed Mobility, Concurrent Therapy, Education, Functional Activity Jp, Functional Strength, Group Therapy, Gait, Safety, Therapeutic Ex ercise, Transfers Treatment Duration: Jun 13, 2023 Frequency: At least 5 of 7 days/Wk (IRF) Estimated Hrs Per Day: 1.5 hours per day Patient and/or Family Agrees t: Yes Safety Risks/Education Patient Education: Gait Training, Steps, Safety Issues Teaching Recipient: Patient Teaching Methods: Demonstration, Discussion Response to Teaching: Verbalize Understanding, Return Demonstration Discharge Recommendations Plan Continue with tx per pt POC. Time Time In: 1300 Time Out: 1330 DATE: May 31, 2023 Total Billed Treatment Time: 30 Total Billed Treatment 1, EX (15m), GT (15m) [facility] DEPARTMENT SALES MANAGER May 31, 2023 16:24
[2023-05-31] MEDS ORDERED: PATIENT MAY USE OWN MEDS, ALL MC SCH (17:15)
[2023-05-31] MEDS: ALBUTEROL SULFATE 4 MG PO SCH (17:30)
[2023-05-31] MEDS: warFARin 1 MG (COUMADIN) TAB PO SCH (17:30)
[2023-05-31] MEDS: warFARin 4 MG (COUMADIN) TAB PO SCH (17:30)
[2023-05-31] MEDS: ALPRAZolam 1 MG TABLET PO SCH (20:08)
[2023-05-31 20:18] VITALS: BP 106/56
[2023-06-01] MEDS: HYDROcodone/ACETAMINOPHEN 5 MG/325 MG TABLET PO PRN ×3 (00:04→20:02)
--- NOTE | 2023-06-01 05:39 | PM&R Progress Note ---
Subjective HPI/CC On Admission Date Seen by Provider: Jun 01, 2023 Time Seen by Provider: 13:00 Subjective/Events-last exam 06/01/2023: Patient dramatically improved Ambulating very well INR 1.3 so we will increase Coumadin and maintain Lovenox bridge No other falls Working on puzzles with OT 05/31/2023: Patient doing well Pain is controlled Slow recovery Checking INR tomorrow Maintain on Lovenox bridge 05/30/2023: Patient much improved Pain controlled Labs stable INR 1.3 so initiated Lovenox injections to bridge to protect valve No falls Review of Systems General: Fatigue, Malaise Objective Exam Vital Signs Vital Signs Date Time Temp Pulse Resp B/P (MAP) Pulse Ox O2 Delivery O2 Flow Rate FiO2 06/01/23 09:45 Room Air 06/01/23 09:44 98 06/01/23 08:00 36.8 89 16 110/62 (78) Capillary Refill : General Appearance: No Apparent Distress, WD/WN, Chronically ill HEENT: PERRL/EOMI, Normal ENT Inspection, Pharynx Normal Neck: Full Range of Motion, Normal Inspection, Non Tender, Supple, Carotid B ruit Respiratory: Chest Non Tender, Lungs Clear, Normal Breath Sounds, No Accessory Muscle Use, No Respiratory Distress Cardiovascular: Regular Rate, Rhythm, No Edema, No Gallop, No JVD, No Murmur, Normal Peripheral Pulses, Other (click) Gastrointestinal: Normal Bowel Sounds, No Organomegaly, No Pulsatile Mass, Non Tender, Soft Back: Normal Inspection, No CVA Tenderness, No Vertebral Tenderness Extremity: Normal Capillary Refill, Normal Inspection, Normal Range of Motion (except left leg), Non Tender, No Calf Tenderness, No Pedal Edema Neurologic/Psychiatric: Alert, Oriented x3, No Motor/Sensory Deficits, Normal Mood/Affect, Abnormal Gait, Motor Weakness (left leg) Skin: Normal Color, Warm/Dry Lymphatic: No Adenopathy Results/Procedures Lab Patient resulted labs reviewed. FIM Transfers Therapy Code Descriptions/Definitions Functional [place] Measure: 0=Not Assessed/NA 4=Minimal Assistance 1=Total Assistance 5=Supervision or Setup 2=Maximal Assistance 6=Modified [place] 3=Moderate Assistance 7=Complete IndependenceSCALE: Activities may be completed with or without assistive devices. 5-Erzvrrhokh-meyxajv completes the activity by him/herself with no assistance from a helper. 5-Set-up or Clean-up Assistance-helper sets up or cleans up; patient completes activity. [place] assists only prior to or following the activity. 4-Supervision or Touching Assistance-helper provides verbal cues and/or touching/steadying and/or contact guard assistance as patient completes activity. Assistance may be provided throughout the activity or intermittently. 3-Partial/Moderate Assistance-helper does LESS THAN HALF the effort. [place] lifts, holds or supports trunk or limbs, but provides less than half the effort. 2-Substantial/Maximal Assistance-helper does MORE THAN HALF the effort. [place] lifts or holds trunk or limbs and provides more than half the effort. 9-Nixkgboif-okhhvf does ALL the effort. Patient does none of the effort to comp lete the activity. Or, the assistance of 2 or more helpers is required for the patient to complete the activity. If activity was not attempted, code reason: 7-Patient Refused. 9-Not Applicable-not attempted and the patient did not perform the activity before the current illness, exacerbation or injury. 10-Not Attempted due to Environmental Limitations-(lack of equipment, weather restraints, etc.). 88-Not Attempted due to Medical Conditions or Safety Concerns. Roll Left to Right (QC): 4 Sit to Lying (QC): 3 Sit to Stand (QC): 4 Chair/Pyx-xu-Jsnxb Xfer(QC): 4 Car Transfer (QC): 3 (Min (A) /c (L) LE assist.) Gait Training Does the Patient Walk?: Yes Walk 10 feet (QC): 6 Walk 50 ft with 2 Turns(QC): 4 Walk 150 ft (QC): 4 Walking 10ft/uneven surface-QC: 3 (Min (A) /c FWW) Gait Assistive Device: FWW Wheelchair Training Does the Pt Use a Wheelchair?: No Wheel 50 ft with 2 turns (QC): 9 Wheel 150 ft (QC): 9 Stair Training 1 Step (curb) (QC): 3 (Min (A) /c safety cues for safe technique for FWW use x 2) 4 Steps (QC): 3 (Min (A) /c (B) rails) 12 Steps (QC): 88 (NT due to fatigue) Balance Picking up an Object (QC): 4 (CGA /c photography colorist use) ADL-Treatment Eating (QC): 5 (per pt report) Oral Hygiene (QC): 5 (Per RN report) Shower/Bathe Self (QC): 4 (SBA. LH sponge used for LB bathing) Upper Body Dressing (QC): 5 Lower Body Dressing (QC): 3 (Min A doffing using photography colorist, CGA with donning.) On/Off Footwear (QC): 3 Toileting Hygiene (QC): 4 (CGA) Assessment/Plan Assessment and Plan Assess & Plan/Chief Complaint Assessment: Left hip fracture Mechanical heart valve Warfarin anticoagulation HTN Post op anemia from blood loss Poor nutrition B12 def maintained on supplement GERD Iron deficiency 05/30/2023: Continue aggressive therapy Pain control Lovenox bridge 05/31/2023: Check INR tomorrow Continue therapy IV iron infusion 3 doses 06/01/2023: IV iron infusion Increase Coumadin (1) Femoral neck fracture Status: Acute BIBI HOGUE DO Jun 01, 2023 05:39
[2023-06-01 06:16] LABS: INR 1.3 (0.8-1.4); PROTHROMBIN TIME PATIENT 16.9 SEC (12.2-14.7)
[2023-06-01] MEDS: ENOXAPARIN 60 MG/0.6 ML SYRINGE SC SCH ×2 (06:23→18:54)
[2023-06-01] MEDS: CYANOCOBALAMIN 1,000 MCG TABLET PO SCH (07:48)
[2023-06-01] MEDS: CALCIUM CARBONATE 600 MG +VITAMIN D TABLET PO SCH (07:48)
[2023-06-01] MEDS: SUCRALFATE 1 GM TABLET PO SCH ×2 (07:48→17:17)
[2023-06-01] MEDS: DOCUSATE SODIUM 100 MG CAPSULE PO SCH ×2 (07:49→21:02)
[2023-06-01] MEDS: ALBUTEROL SULFATE 4 MG PO SCH (07:49)
[2023-06-01] MEDS: SENNA W/DOCUSATE TABLET PO SCH ×2 (07:49→21:02)
[2023-06-01 08:00] VITALS: BP 110/62
--- NOTE | 2023-06-01 09:28 | Occupational Ther Daily Note ---
OT Current Status-Daily Note Subjective Pt agreeable to OT tx. She rates pain 3/10 in L hip ADL-Treatment Therapy Code Descriptions/Definitions Functional [place] Measure: 0=Not Assessed/NA 4=Minimal Assistance 1=Total Assistance 5=Supervision or Setup 2=Maximal Assistance 6=Modified [place] 3=Moderate Assistance 7=Complete IndependenceSCALE: Activities may be completed with or without assistive devices. 4-Lapjctxtra-lamprjl completes the activity by him/herself with no assistance from a helper. 5-Set-up or Clean-up Assistance-helper sets up or cleans up; patient completes activity. [place] assists only prior to or following the activity. 4-Supervision or Touching Assistance-helper provides verbal cues and/or touching/steadying and/or contact guard assistance as patient completes activity. Assistance may be provided throughout the activity or intermittently. 3-Partial/Moderate Assistance-helper does LESS THAN HALF the effort. [place] lifts, holds or supports trunk or limbs, but provides less than half the effort. 2-Substantial/Maximal Assistance-helper does MORE THAN HALF the effort. [place] lifts or holds trunk or limbs and provides more than half the effort. 9-Qtuhkexeh-omghnq does ALL the effort. Patient does none of the effort to complete the activity. Or, the assistance of 2 or more helpers is required for the patient to complete the activity. If activity was not attempted, code reason: 7-Patient Refused. 9-Not Applicable-not attempted and the patient did not perform the activity before the current illness, exacerbation or injury. 10-Not Attempted due to Environmental Limitations-(lack of equipment, weather restraints, etc.). 88-Not Attempted due to Medical Conditions or Safety Concerns. Oral Hygiene (QC): 4 (SBA standing at sink.) Upper Body Dressing (QC): 5 Lower Body Dressing (QC): 4 (SBA with AE, min VCs for hip precautions) On/Off Footwear: 4 (SBA with sock aide, warp drawer, and shoe funnel. ) Toileting Hygiene (QC): 4 (SBA) Toilet Transfer (QC): 4 (SBA) Other Treatment Pt on toilet, agreeable to OT tx. Pt completed toileting, SBA. Sit to stand from [facility] over toilet, SBA. Pt stood at sink for grooming tasks, SBA. Pt returned to chair in her room using FWW, SBA. Pt completed dressing as outlined above. Education provided on shoe funnel and AE for footwear/LBD. Post tx, pt in chair with arm rests, all needs met, call light in reach. Education OT Patient Education: Correct positioning, Energy conservation, Modified ADL techniques, Progress toward Goal/Update tx plan, Purpose of tx/functional activities, Rehab process, Use of adapted equipment Teaching Recipient: Patient Teaching Methods: Discussion Response to Teaching: Verbalize Understanding OT Short Term Goals Short Term Goals Time Frame: Jun 08, 2023 Shower/bathe self: 5 Upper body dressin Lower body dressin Putting on/taking off footwear: 5 OT Geriatric Physical Therapist Goals Geriatric Physical Therapist Goals Time Frame: Jun 17, 2023 Acute change in mental status: 0 Inattention: 0 Disorganized thinkin Altered level of consciousness: 0 Eating (QC): 6 Oral Hygiene (QC): 6 Toileting Hygiene (QC): 6 Shower/Bathe Self (QC): 6 Upper Body Dressing (QC): 6 Lower Body Dressing (QC): 6 On/Off Footwear (QC): 6 Additional Goals: 1-Demonstrate ADL Tasks, 2-Verbalize Understanding, 3- ImproveStrength/Jp 1=Demonstrate adherence to instructed precautions during ADL tasks. 2=Patient will verbalize/demonstrate understanding of assistive devices/modifications for ADL. 3=Patient will improve strength/tolerance for activity to enable patient to perform ADL's. OT Education/Plan Problem List/Assessment Assessment: Decreased Activ Tolerance, Decreased UE Strength, Impaired Funct Balance, Impaired I ADL's, Impaired Self-Care Skills Discharge Recommendations Plan/Recommendations: Continue POC Treatment Plan/Plan of Care Patient would benefit from OT for education, treatment and training to promote independence in ADL's, mobility, safety and/or upper extremity function for ADL's. Plan of Care: ADL Retraining, Functional Mobility, Group Exercise/Act as Ind, UE Funct Exercise/Act Treatment Duration: Jun 17, 2023 Frequency: At least 5 of 7 days/Wk (IRF) Estimated Hrs Per Day: 1.5 hours per day Agreement: Yes Rehab Potential: Good Time Start Time: 08:30 Stop Time: 09:30 DATE: Jun 01, 2023 Total Time Billed (hr/min): 60 Billed Treatment Time 1, ADL 4 DELMAR ARAIZA OT Jun 01, 2023 09:28
[2023-06-01] MEDS: ADVAIR IH SCH ×2 (09:43→21:32)
[2023-06-01] MEDS: IRON SUCROSE 200 MG/10 ML VIAL IV SCH (13:16)
[2023-06-01] MEDS ORDERED: BENZONATATE 100 MG CAPSULE PO PRN (14:00)
--- NOTE | 2023-06-01 14:01 | Occupational Ther Daily Note ---
OT Current Status-Daily Note Subjective Pt agreeable to OT tx. Mental Status/Objective Patient Orientation: Person, Place, Time, Situation ADL-Treatment Therapy Code Descriptions/Definitions Functional [place] Measure: 0=Not Assessed/NA 4=Minimal Assistance 1=Total Assistance 5=Supervision or Setup 2=Maximal Assistance 6=Modified [place] 3=Moderate Assistance 7=Complete IndependenceSCALE: Activities may be completed with or without assistive devices. 2-Clvpalkrsd-lcyarvm completes the activity by him/herself with no assistance from a helper. 5-Set-up or Clean-up Assistance-helper sets up or cleans up; patient completes activity. [place] assists only prior to or following the activity. 4-Supervision or Touching Assistance-helper provides verbal cues and/or touching/steadying and/or contact guard assistance as patient completes activity. Assistance may be provided throughout the activity or intermittently. 3-Partial/Moderate Assistance-helper does LESS THAN HALF the effort. [place] lifts, holds or supports trunk or limbs, but provides less than half the effort. 2-Substantial/Maximal Assistance-helper does MORE THAN HALF the effort. [place] lifts or holds trunk or limbs and provides more than half the effort. 3-Wdgmllwri-ckdqvu does ALL the effort. Patient does none of the effort to complete the activity. Or, the assistance of 2 or more helpers is required for the patient to complete the activity. If activity was not attempted, code reason: 7-Patient Refused. 9-Not Applicable-not attempted and the patient did not perform the activity before the current illness, exacerbation or injury. 10-Not Attempted due to Environmental Limitations-(lack of equipment, weather restraints, etc.). 88-Not Attempted due to Medical Conditions or Safety Concerns. Other Treatment Pt in bed, transferred supine to sit EOB, SBA. Pt stood from EOB, SBA, then used FWW to perform functional mobility to [facility]. OT tx focused on increasing standing tolerance and activity tolerance. Pt stood at elevated table, completing BUE reaching task at table top. Pt able to stand ~20 mins prior to requiring seated rest break. Post tx, pt in [facility], all needs met, PACK present for continued tx. OT Short Term Goals Short Term Goals Time Frame: Jun 08, 2023 Shower/bathe self: 5 Upper body dressin Lower body dressin Putting on/taking off footwear: 5 OT Care Home Goals Curtain Hemmer Automatic Goals Time Frame: Jun 17, 2023 Acute change in mental status: 0 Inattention: 0 Disorganized thinkin Altered level of consciousness: 0 Eating (QC): 6 Oral Hygiene (QC): 6 Toileting Hygiene (QC): 6 Shower/Bathe Self (QC): 6 Upper Body Dressing (QC): 6 Lower Body Dressing (QC): 6 On/Off Footwear (QC): 6 Additional Goals: 1-Demonstrate ADL Tasks, 2-Verbalize Understanding, 3-Improv eStrength/Jp 1=Demonstrate adherence to instructed precautions during ADL tasks. 2=Patient will verbalize/demonstrate understanding of assistive devices/modifications for ADL. 3=Patient will improve strength/tolerance for activity to enable patient to p erform ADL's. OT Education/Plan Problem List/Assessment Assessment: Decreased Activ Tolerance, Decreased UE Strength, Impaired Funct Balance, Impaired I ADL's, Impaired Self-Care Skills Discharge Recommendations Plan/Recommendations: Continue POC Treatment Plan/Plan of Care Patient would benefit from OT for education, treatment and training to promote independence in ADL's, mobility, safety and/or upper extremity function for ADL's. Plan of Care: ADL Retraining, Functional Mobility, Group Exercise/Act as Ind, U E Funct Exercise/Act Treatment Duration: Jun 17, 2023 Frequency: At least 5 of 7 days/Wk (IRF) Estimated Hrs Per Day: 1.5 hours per day Agreement: Yes Rehab Potential: Good Time Start Time: 13:10 Stop Time: 13:40 DATE: Jun 01, 2023 Total Time Billed (hr/min): 30 Billed Treatment Time 1, FA 2 DELMAR ARAIZA OT Jun 01, 2023 14:01
--- NOTE | 2023-06-01 14:28 | Physical Therapy Daily Note ---
PT Daily Note-Current Subjective Pt presents sleeping in bed. Pt denies pain and is agreeable to PT tx. Pain Section J - Health Conditions 1. Rarely or not at all 2. Occasionally 3. Frequently 4. Almost constantly 8. Unable to answer Pain Effect on Sleep: 1 Pain Interference with Therapy: 1 Pain Interference w/Day-to-Day: 1 Mental Status Patient Orientation: Person, Place, Time, Situation Transfers SCALE: Activities may be completed with or without assistive devices. 2-Bncverodnw-jjmtdaq completes the activity by him/herself with no assistance from a helper. 5-Set-up or Clean-up Assistance-helper sets up or cleans up; patient completes activity. [place] assists only prior to or following the activity. 4-Supervision or Touching Assistance-helper provides verbal cues and/or touching/steadying and/or contact guard assistance as patient completes activity. Assistance may be provided throughout the activity or intermittently. 3-Partial/Moderate Assistance-helper does LESS THAN HALF the effort. [place] lifts, holds or supports trunk or limbs, but provides less than half the effort. 2-Substantial/Maximal Assistance-helper does MORE THAN HALF the effort. [place] lifts or holds trunk or limbs and provides more than half the effort. 7-Mtirclbie-zulbcu does ALL the effort. Patient does none of the effort to complete the activity. Or, the assistance of 2 or more helpers is required for the patient to complete the activity. If activity was not attempted, code reason: 7-Patient Refused. 9-Not Applicable-not attempted and the patient did not perform the activity before the current illness, exacerbation or injury. 10-Not Attempted due to Environmental Limitations-(lack of equipment, weather restraints, etc.). 88-Not Attempted due to Medical Conditions or Safety Concerns. Roll Left & Right (QC): 6 Sit to Lying (QC): 3 ([place] with (L) LE) Lying to Sitting/Side of Bed(Q: 3 ([place] - CGA, depending on fatigue) Sit to Stand (QC): 6 (Allow time for pt to achieve) Weight Bearing Right Lower Extremity: Right Full Weight Bearing Left Lower Extremity: Left Weight Bearing/Tolerated Gait Training Does the Patient Walk?: Yes Walk 10 feet (QC): 4 Walk 50 ft with 2 Turns(QC): 4 Walk 150 ft (QC): 4 Gait Assistive Device: FWW Pt amb ~200' on tiled & carpeted osmin with FWW, SBA for safety and minimal vc's. Wheelchair Training Does the Pt Use a Wheelchair?: No Exercises Seated Therapy Exercises: Long arc quads (with quad concentric/eccentric control) Standing: Hip Abduction (With glute squeeze and control), Heel/toe raises, Marching NuStep Minutes: 10 (With caution to not break 90 degrees (hip precaution)) Treatments Pt amb from room, around ARU, and to PT gym. Pt demonstrated UE/LE synchronicity with bicycling activity. Pt conducted seated and standing ther ex. Pt amb from PT gym back to room with FWW, SBA. Post tx with pt in recliner, call light within reach and all needs met. Assessment Current Status: Good Progress Pt still lacks significant (L) quad strength to assist LE into bed independently. PT Overnight Cashier Goals Overnight Cashier Goals PT [facility] Goals Time Frame: Jun 13, 2023 Roll Left & Right (QC): 6 (/c pillow between knees) Sit to Lying (QC): 6 (/c leg screw machine hand if needed) Lying-Sitting on Side/Bed(QC): 6 (/c leg screw machine hand if needed) Sit to Stand (QC): 6 Chair/Ybg-hm-Fszby Xfer(QC): 6 (/c FWW) Toilet Transfer (QC): 6 Car Transfer (QC): 5 (set up to move seat back ) Does the Patient Walk: Yes Walk 10 feet (QC): 6 (/c FWW) Walk 50ft with 2 Turns (QC): 6 (/c FWW) Walk 150 ft (QC): 6 (/c FWW) Walking 10ft on Uneven Surface: 6 (/c FWW) 1 Step (curb) (QC): 6 (/c FWW) 4 Steps (QC): 6 (/c railings) 12 Steps (QC): 6 (/c railings) Picking up an Object (QC): 6 (/c broach grinder) Does the Pt use WC or Scooter?: No Wheel 50 feet with 2 turns (QC: 9 Wheel 150 feet: 9 PT Plan Problem List Problem List: Activity Tolerance, Functional Strength, ROM Treatment/Plan Treatment Plan: Continue Plan of Care Treatment Plan: Bed Mobility, Concurrent Therapy, Education, Functional Activity Jp, Functional Strength, Group Therapy, Gait, Safety, Therapeutic Exercise, Transfers Treatment Duration: Jun 13, 2023 Frequency: At least 5 of 7 days/Wk (IRF) Estimated Hrs Per Day: 1.5 hours per day Patient and/or Family Agrees t: Yes Safety Risks/Education Patient Education: Gait Training, Reviewed Precautions, Correct Positioning, Safety Issues Teaching Recipient: Patient Teaching Methods: Demonstration, Discussion Response to Teaching: Verbalize Understanding Discharge Recommendations Plan Continue with tx per pt POC. Time Time In: 1100 Time Out: 1200 DATE: Jun 01, 2023 Total Billed Treatment Time: 60 Total Billed Treatment 1, GT (15m), FA (15m), EX2 (30m) CHRISTAL SIU PTA Jun 01, 2023 14:28
--- NOTE | 2023-06-01 14:33 | Occupational Ther Daily Note ---
OT Current Status-Daily Note Subjective Pt. alert sitting in [facility]. No c/o pain at this time. Pt. agreed to therapy. Mental Status/Objective Patient Orientation: Person, Place, Time, Situation ADL-Treatment Therapy Code Descriptions/Definitions Functional [place] Measure: 0=Not Assessed/NA 4=Minimal Assistance 1=Total Assistance 5=Supervision or Setup 2=Maximal Assistance 6=Modified [place] 3=Moderate Assistance 7=Complete IndependenceSCALE: Activities may be completed with or without assistive devices. 2-Hpgykyaxmz-pzcwxvj completes the activity by him/herself with no assistance from a helper. 5-Set-up or Clean-up Assistance-helper sets up or cleans up; patient completes activity. [place] assists only prior to or following the activity. 4-Supervision or Touching Assistance-helper provides verbal cues and/or touching/steadying and/or contact guard assistance as patient completes activity. Assistance may be provided throughout the activity or intermittently. 3-Partial/Moderate Assistance-helper does LESS THAN HALF the effort. [place] lifts, holds or supports trunk or limbs, but provides less than half the effort. 2-Substantial/Maximal Assistance-helper does MORE THAN HALF the effort. [place] lifts or holds trunk or limbs and provides more than half the effort. 6-Dmnpwhrld-odnigh does ALL the effort. Patient does none of the effort to complete the activity. Or, the assistance of 2 or more helpers is required for the patient to complete the activity. If activity was not attempted, code reason: 7-Patient Refused. 9-Not Applicable-not attempted and the patient did not perform the activity before the current illness, exacerbation or injury. 10-Not Attempted due to Environmental Limitations-(lack of equipment, weather restraints, etc.). 88-Not Attempted due to Medical Conditions or Safety Concerns. Other Treatment Educated pt with medication management and was able to demonstrate with opening the the containers and reading the pill bottles with properly placing the beads in the right days while working on fine motor for hand and timber framer helper strengthening when grabbing and placing the beads into the pill box. Pt. given leg production metal sprayer for use while in hospital to facilitate with bed mobility lifting L leg into bed and was able to demonstrate but will continue to educate pt with the use of AE. Pt. ambulated from [facility] using FWW with SBA. After session, pt in laying in bed with call light and phone in reach and all needs met. Education OT Patient Education: Purpose of tx/functional activities Teaching Recipient: Patient Teaching Methods: Demonstration, Discussion Response to Teaching: Verbalize Understanding, Return Demonstration OT Short Term Goals Short Term Goals Time Frame: Jun 08, 2023 Shower/bathe self: 5 Upper body dressin Lower body dressin Putting on/taking off footwear: 5 OT Retirement Goals Retirement Goals Time Frame: Jun 17, 2023 Acute change in mental status: 0 Inattention: 0 Disorganized thinkin Altered level of consciousness: 0 Eating (QC): 6 Oral Hygiene (QC): 6 Toileting Hygiene (QC): 6 Shower/Bathe Self (QC): 6 Upper Body Dressing (QC): 6 Lower Body Dressing (QC): 6 On/Off Footwear (QC): 6 Additional Goals: 1-Demonstrate ADL Tasks, 2-Verbalize Understanding, 3- ImproveStrength/Jp 1=Demonstrate adherence to instructed precautions during ADL tasks. 2=Patient will verbalize/demonstrate understanding of assistive devices/modifications for ADL. 3=Patient will improve strength/tolerance for activity to enable patient to perform ADL's. OT Education/Plan Problem List/Assessment Assessment: Decreased UE Strength Discharge Recommendations Plan/Recommendations: Continue POC Treatment Plan/Plan of Care Patient would benefit from OT for education, treatment and training to promote independence in ADL's, mobility, safety and/or upper extremity function for ADL's. Plan of Care: ADL Retraining, Functional Mobility, Group Exercise/Act as Ind, UE Funct Exercise/Act Treatment Duration: Jun 17, 2023 Frequency: At least 5 of 7 days/Wk (IRF) Estimated Hrs Per Day: 1.5 hours per day Agreement: Yes Rehab Potential: Good Time Start Time: 13:40 Stop Time: 14:10 DATE: Jun 01, 2023 Total Time Billed (hr/min): 30 Billed Treatment Time 1 visit- FA 2 (30 mins) TRISH WYNN Jun 01, 2023 14:33
--- NOTE | 2023-06-01 14:44 | Physical Therapy Progress Note ---
Therapy Progress Note The pt has a mobility limitation that significantly impairs her ability to participate in one or more mobility-related activities of daily living (MRADL) in the home. The pt is able to safely use the walker, and the functional mobility deficit can be sufficiently resolved with use of a walker. CHRISTAL SIU SOLAR MAINTENANCE TECHNICIAN Jun 01, 2023 14:44
[2023-06-01] MEDS: warFARin 4 MG (COUMADIN) TAB PO SCH (18:54)
[2023-06-01] MEDS: warFARin 3 MG (COUMADIN) TAB PO SCH (18:54)
[2023-06-01] MEDS: MONTELUKAST 10 MG TABLET PO SCH (20:01)
[2023-06-01] MEDS: ALPRAZolam 1 MG TABLET PO SCH (20:01)
[2023-06-01] MEDS: CATHETER FLUSH 10 ML SYR IVP SCH (20:02)
[2023-06-01 20:15] VITALS: BP 137/60
--- NOTE | 2023-06-02 05:34 | PM&R Progress Note ---
Subjective HPI/CC On Admission Date Seen by Provider: Jun 01, 2023 Time Seen by Provider: 10:00 Subjective/Events-last exam 06/02/2023: 06/01/2023: Patient dramatically improved Ambulating very well INR 1.3 so we will increase Coumadin and maintain Lovenox bridge No other falls Working on puzzles with OT 05/31/2023: Patient doing well Pain is controlled Slow recovery Checking INR tomorrow Maintain on Lovenox bridge 05/30/2023: Patient much improved Pain controlled Labs stable INR 1.3 so initiated Lovenox injections to bridge to protect valve No falls Review of Systems General: Fatigue, Malaise Objective Exam Vital Signs Vital Signs Date Time Temp Pulse Resp B/P (MAP) Pulse Ox O2 Delivery O2 Flow Rate FiO2 06/01/23 21:33 96 Room Air 06/01/23 20:15 36.2 94 18 137/60 (85) Capillary Refill : General Appearance: No Apparent Distress, WD/WN, Chronically ill HEENT: PERRL/EOMI, Normal ENT Inspection, Pharynx Normal Neck: Full Range of Motion, Normal Inspection, Non Tender, Supple, Carotid Bruit Respiratory: Chest Non Tender, Lungs Clear, Normal Breath Sounds, No Accessory Muscle Use, No Respiratory Distress Cardiovascular: Regular Rate, Rhythm, No Edema, No Gallop, No JVD, No Murmur, Normal Peripheral Pulses, Other (click) Gastrointestinal: Normal Bowel Sounds, No Organomegaly, No Pulsatile Mass, Non Tender, Soft Back: Normal Inspection, No CVA Tenderness, No Vertebral Tenderness Extremity: Normal Capillary Refill, Normal Inspection, Normal Range of Motion (except left leg), Non Tender, No Calf Tenderness, No Pedal Edema Neurologic/Psychiatric: Alert, Oriented x3, No Motor/Sensory Deficits, Normal Mood/Affect, Abnormal Gait, Motor Weakness (left leg) Skin: Normal Color, Warm/Dry Lymphatic: No Adenopathy Results/Procedures Lab Patient resulted labs reviewed. FIM Transfers Therapy Code Descriptions/Definitions Functional [place] Measure: 0=Not Assessed/NA 4=Minimal Assistance 1=Total Assistance 5=Supervision or Setup 2=Maximal Assistance 6=Modified [place] 3=Moderate Assistance 7=Complete IndependenceSCALE: Activities may be completed with or without assistive devices. 4-Vsbauvwlue-qwzplpp completes the activity by him/herself with no assistance from a helper. 5-Set-up or Clean-up Assistance-helper sets up or cleans up; patient completes activity. [place] assists only prior to or following the activity. 4-Supervision or Touching Assistance-helper provides verbal cues and/or touching/steadying and/or contact guard assistance as patient completes activity. Assistance may be provided throughout the activity or intermittently. 3-Partial/Moderate Assistance-helper does LESS THAN HALF the effort. [place] lifts, holds or supports trunk or limbs, but provides less than half the effort. 2-Substantial/Maximal Assistance-helper does MORE THAN HALF the effort. [place] lifts or holds trunk or limbs and provides more than half the effort. 6-Oyyxuhpiw-anuaya does ALL the effort. Patient does none of the effort to complete the activity. Or, the assistance of 2 or more helpers is required for the patient to complete the activity. If activity was not attempted, code reason: 7-Patient Refused. 9-Not Applicable-not attempted and the patient did not perform the activity before the current illness, exacerbation or injury. 10-Not Attempted due to Environmental Limitations-(lack of equipment, weather restraints, etc.). 88-Not Attempted due to Medical Conditions or Safety Concerns. Roll Left to Right (QC): 6 Sit to Lying (QC): 3 ([place] with (L) LE) Sit to Stand (QC): 6 (Allow time for pt to achieve) Chair/Dxy-ia-Lxpix Xfer(QC): 4 Car Transfer (QC): 3 (Min (A) /c (L) LE assist.) Gait Training Does the Patient Walk?: Yes Walk 10 feet (QC): 4 Walk 50 ft with 2 Turns(QC): 4 Walk 150 ft (QC): 4 Walking 10ft/uneven surface-QC: 3 (Min (A) /c FWW) Gait Assistive Device: FWW Wheelchair Training Does the Pt Use a Wheelchair?: No Wheel 50 ft with 2 turns (QC): 9 Wheel 150 ft (QC): 9 Stair Training 1 Step (curb) (QC): 3 (Min (A) /c safety cues for safe technique for FWW use x 2) 4 Steps (QC): 3 (Min (A) /c (B) rails) 12 Steps (QC): 88 (NT due to fatigue) Balance Picking up an Object (QC): 4 (CGA /c informatica mdm architect use) ADL-Treatment Eating (QC): 5 (per pt report) Oral Hygiene (QC): 4 (SBA standing at sink.) Shower/Bathe Self (QC): 4 (SBA. LH sponge used for LB bathing) Upper Body Dressing (QC): 5 Lower Body Dressing (QC): 4 (SBA with AE, min VCs for hip precautions) On/Off Footwear (QC): 4 (SBA with sock aide, informatica mdm architect, and shoe funnel. ) Toileting Hygiene (QC): 4 (SBA) Toilet Transfer (QC): 4 (SBA) Assessment/Plan Assessment and Plan Assess & Plan/Chief Complaint Assessment: Left hip fracture Mechanical heart valve Warfarin anticoagulation HTN Post op anemia from blood loss Poor nutrition B12 def maintained on supplement GERD Iron deficiency 05/30/2023: Continue aggressive therapy Pain control Lovenox bridge 05/31/2023: Check INR tomorrow Continue therapy IV iron infusion 3 doses 06/01/2023: IV iron infusion Increase Coumadin 06/02/2023: (1) Femoral neck fracture Status: Acute BIBI HOGUE DO Jun 02, 2023 05:34
[2023-06-02] MEDS: ENOXAPARIN 60 MG/0.6 ML SYRINGE SC SCH ×2 (06:36→18:13)
[2023-06-02] MEDS: CATHETER FLUSH 10 ML SYR IVP SCH ×3 (06:37→21:33)
[2023-06-02] MEDS: ADVAIR IH SCH ×2 (07:32→20:29)
--- NOTE | 2023-06-02 07:45 | Occupational Ther Daily Note ---
OT Current Status-Daily Note Subjective Pt received lying supine in bed. Pt very pleasant and willing to participate in therapy. Pain Numeric Pain Scale: 0-No Pain Location: No Pain Reported Mental Status/Objective Patient Orientation: Person, Place, Time, Situation Attachments: IV ADL-Treatment Therapy Code Descriptions/Definitions Functional [place] Measure: 0=Not Assessed/NA 4=Minimal Assistance 1=Total Assistance 5=Supervision or Setup 2=Maximal Assistance 6=Modified [place] 3=Moderate Assistance 7=Complete IndependenceSCALE: Activities may be completed with or without assistive devices. 3-Ynjlpejkuj-nmfursf completes the activity by him/herself with no assistance from a helper. 5-Set-up or Clean-up Assistance-helper sets up or cleans up; patient completes activity. [place] assists only prior to or following the activity. 4-Supervision or Touching Assistance-helper provides verbal cues and/or touching/steadying and/or contact guard assistance as patient completes activity. Assistance may be provided throughout the activity or intermittently. 3-Partial/Moderate Assistance-helper does LESS THAN HALF the effort. [place] lifts, holds or supports trunk or limbs, but provides less than half the effort. 2-Substantial/Maximal Assistance-helper does MORE THAN HALF the effort. [place] lifts or holds trunk or limbs and provides more than half the effort. 6-Iymdvbaiq-iyugdl does ALL the effort. Patient does none of the effort to complete the activity. Or, the assistance of 2 or more helpers is required for the patient to complete the activity. If activity was not attempted, code reason: 7-Patient Refused. 9-Not Applicable-not attempted and the patient did not perform the activity before the current illness, exacerbation or injury. 10-Not Attempted due to Environmental Limitations-(lack of equipment, weather restraints, etc.). 88-Not Attempted due to Medical Conditions or Safety Concerns. Eating (QC): 5 (required assistance opening small containers) Oral Hygiene (QC): 5 Toileting Hygiene (QC): 4 Toilet Transfer (QC): 4 Other Treatment Pt completed functional sitting activity in unsupported sitting with supervision and no cues for safety. Education OT Patient Education: Correct positioning, Energy conservation, Modified ADL techniques, Progress toward Goal/Update tx plan, Purpose of tx/functional activities, Rehab process, Safety issues, Transfer techniques Teaching Recipient: Patient Teaching Methods: Demonstration, Discussion Response to Teaching: Verbalize Understanding, Return Demonstration OT Short Term Goals Short Term Goals Time Frame: Jun 08, 2023 Shower/bathe self: 5 Upper body dressin Lower body dressin Putting on/taking off footwear: 5 OT Paving Machine Operator Goals Detention Goals Time Frame: Jun 17, 2023 Acute change in mental status: 0 Inattention: 0 Disorganized thinkin Altered level of consciousness: 0 Eating (QC): 6 Oral Hygiene (QC): 6 Toileting Hygiene (QC): 6 Shower/Bathe Self (QC): 6 Upper Body Dressing (QC): 6 Lower Body Dressing (QC): 6 On/Off Footwear (QC): 6 Additional Goals: 1-Demonstrate ADL Tasks, 2-Verbalize Understanding, 3- ImproveStrength/Jp 1=Demonstrate adherence to instructed precautions during ADL tasks. 2=Patient will verbalize/demonstrate understanding of assistive devices/modifications for ADL. 3=Patient will improve strength/tolerance for activity to enable patient to perform ADL's. OT Education/Plan Problem List/Assessment Assessment: Decreased Activ Tolerance, Decreased Safety Aware, Decreased UE Strength, Impaired Bed Mobility, Impaired Coordination, Impaired Funct Balance, Impaired I ADL's, Impaired Self-Care Skills Discharge Recommendations Plan/Recommendations: Continue POC Treatment Plan/Plan of Care Treatment,Training & Education: Yes Patient would benefit from OT for education, treatment and training to promote independence in ADL's, mobility, safety and/or upper extremity function for ADL's. Plan of Care: ADL Retraining, Functional Mobility, Group Exercise/Act as Ind, UE Funct Exercise/Act Treatment Duration: Jun 17, 2023 Frequency: At least 5 of 7 days/Wk (IRF) Estimated Hrs Per Day: 1.5 hours per day Agreement: Yes Rehab Potential: Good Time Start Time: 07:30 Stop Time: 08:00 DATE: Jun 02, 2023 Total Time Billed (hr/min): 30 Billed Treatment Time 1, ADL 2 Jaimee Keys OTR/L Jun 02, 2023 07:45
[2023-06-02 08:24] VITALS: BP 118/61
--- NOTE | 2023-06-02 08:30 | Physical Therapy Daily Note ---
PT Daily Note-Current Subjective Pt presents sitting EOB with OT present. Pt denies pain and is agreeable to PT tx. Pain Section J - Health Conditions 1. Rarely or not at all 2. Occasionally 3. Frequently 4. Almost constantly 8. Unable to answer Pain Effect on Sleep: 1 Pain Interference with Therapy: 1 Pain Interference w/Day-to-Day: 1 Mental Status Patient Orientation: Person, Place, Time, Situation Transfers SCALE: Activities may be completed with or without assistive devices. 6-Blccqcuviq-jkskavd completes the activity by him/herself with no assistance from a helper. 5-Set-up or Clean-up Assistance-helper sets up or cleans up; patient completes activity. [place] assists only prior to or following the activity. 4-Supervision or Touching Assistance-helper provides verbal cues and/or touching/steadying and/or contact guard assistance as patient completes activity. Assistance may be provided throughout the activity or intermittently. 3-Partial/Moderate Assistance-helper does LESS THAN HALF the effort. [place] lifts, holds or supports trunk or limbs, but provides less than half the effort. 2-Substantial/Maximal Assistance-helper does MORE THAN HALF the effort. [place] lifts or holds trunk or limbs and provides more than half the effort. 1-Vltgooayf-uebspz does ALL the effort. Patient does none of the effort to complete the activity. Or, the assistance of 2 or more helpers is required for the patient to complete the activity. If activity was not attempted, code reason: 7-Patient Refused. 9-Not Applicable-not attempted and the patient did not perform the activity b efore the current illness, exacerbation or injury. 10-Not Attempted due to Environmental Limitations-(lack of equipment, weather restraints, etc.). 88-Not Attempted due to Medical Conditions or Safety Concerns. Sit to Lying (QC): 3 ([place] with (L) LE and leg renal dialysis technician) Sit to Stand (QC): 6 Weight Bearing Right Lower Extremity: Right Full Weight Bearing Left Lower Extremity: Left Weight Bearing/Tolerated Gait Training Does the Patient Walk?: Yes Walk 10 feet (QC): 6 Walk 50 ft with 2 Turns(QC): 4 Walk 150 ft (QC): 4 Gait Assistive Device: FWW Pt amb from room and around [facility] ~240' /c FWW, SBA for safety. Wheelchair Training Does the Pt Use a Wheelchair?: No Exercises Standing: Hip Abduction, Heel/toe raises, Marching, Step-ups Standing Reps: 10 Treatments Pt amb from room and around [facility]U /c FWW, SBA for safety. Pt conducted ther ex for strengthening and endurace at end of hallway with (B) UE support on window sill. Pt amb back to room with FWW, SBA for safety. Post tx with pt in bed, call light within reach and all needs met. Assessment Current Status: Good Progress Pt ROM and hip flexor strength is improving for increased hip functional mobility. PT Custodial Goals Custodial Goals PT Custodial Goals Time Frame: Jun 13, 2023 Roll Left & Right (QC): 6 (/c pillow between knees) Sit to Lying (QC): 6 (/c leg renal dialysis technician if needed) Lying-Sitting on Side/Bed(QC): 6 (/c leg renal dialysis technician if needed) Sit to Stand (QC): 6 Chair/Bja-or-Ozczk Xfer(QC): 6 (/c FWW) Toilet Transfer (QC): 6 Car Transfer (QC): 5 (set up to move seat back ) Does the Patient Walk: Yes Walk 10 feet (QC): 6 (/c FWW) Walk 50ft with 2 Turns (QC): 6 (/c FWW) Walk 150 ft (QC): 6 (/c FWW) Walking 10ft on Uneven Surface: 6 (/c FWW) 1 Step (curb) (QC): 6 (/c FWW) 4 Steps (QC): 6 (/c railings) 12 Steps (QC): 6 (/c railings) Picking up an Object (QC): 6 (/c manager specialty) Does the Pt use WC or Scooter?: No Wheel 50 feet with 2 turns (QC: 9 Wheel 150 feet: 9 PT Plan Problem List Problem List: Activity Tolerance, Functional Strength, ROM Treatment/Plan Treatment Plan: Continue Plan of Care Treatment Plan: Bed Mobility, Concurrent Therapy, Education, Functional Activity Jp, Functional Strength, Group Therapy, Gait, Safety, Therapeutic Exercise, Transfers Treatment Duration: Jun 13, 2023 Frequency: At least 5 of 7 days/Wk (IRF) Estimated Hrs Per Day: 1.5 hours per day Patient and/or Family Agrees t: Yes Safety Risks/Education Patient Education: Reviewed Precautions, Correct Positioning, Safety Issues Teaching Recipient: Patient Teaching Methods: Discussion Response to Teaching: Verbalize Understanding, Return Demonstration Discharge Recommendations Plan Continue with tx per pt POC. Time Time In: 799 Time Out: 829 DATE: Jun 02, 2023 Total Billed Treatment Time: 30 Total Billed Treatment 1, GT (10m), EX (20m) CHRISTAL [facility] DECORATIVE GRE[employer] CUTTER Jun 02, 2023 08:30
[2023-06-02] MEDS: CALCIUM CARBONATE 600 MG +VITAMIN D TABLET PO SCH (08:35)
[2023-06-02] MEDS: SENNA W/DOCUSATE TABLET PO SCH ×2 (08:35→21:33)
[2023-06-02] MEDS: DOCUSATE SODIUM 100 MG CAPSULE PO SCH ×2 (08:35→20:12)
[2023-06-02] MEDS: SUCRALFATE 1 GM TABLET PO SCH ×2 (08:35→18:14)
[2023-06-02] MEDS: CYANOCOBALAMIN 1,000 MCG TABLET PO SCH (08:35)
[2023-06-02] MEDS: ALBUTEROL SULFATE 4 MG PO SCH (08:36)
--- NOTE | 2023-06-02 11:43 | Therapy Group Daily Note ---
Therapy Daily Group Note Patient Education Topic Exercises Exercises Fine Motor, UE Exercise Session Ratio (pt:therapist): 3:1 Goal of Session: UE/LE Strengthing Goal Met for this Session: Yes Pt Benefit of Group: Contributions to Others, Increased Functional Strength, Recognition of Peers, Socialization Other/Notes Pt ambulated to group using FWW. Group consisted of introductions, socialization, Thanksgiving trivia and B UE exercises for gross/fine motor st rengthening and coordination. Pt introduced self appropriately and actively listened to peers. Pt participated in multiple B UE exercises with skilled instruction for correct technique and modifications when needed. Pt participated in trivia for dual task with exercises and was able to answer questions and converse with peers throughout appropriately. After session, pt left in care of PT. All needs met. Start Time: 09:30 Stop Time: 10:30 Total Billed Treatment Time: 60 Total Billed Treatment 1-GRP TRISH WYNN Jun 02, 2023 11:42
--- NOTE | 2023-06-02 12:02 | Therapy Group Daily Note ---
Therapy Daily Group Note Patient Education Topic Exercises, Other List Below Exercises LE Seated Exercise, Stretching, Gross Motor, UE Exercise Session Ratio (pt:therapist): 3:1 Goal of Session: Memory Strategies, UE/LE Strengthing Goal Met for this Session: Yes Pt Benefit of Group: Contributions to Others, Increased Functional Strength, Improved Cognition, Recognition of Peers, Socialization Other/Notes Pt amb /c FWW, SBA to PT group in therapy gym. Group consisted of introductions (name, place living, Thanksgiving family traditions), socialization, (B) UE/LE seated exercises, education and activities on memory strategies. Pt introduced self appropriately and actively listened to peers. Pt able to complete (B) UE/LE seated exercises with minimal difficulty for (B) LE strengthening secondary to fatigue. Pt conducted ther ex and activities with attention to follow hip precautions. Pt participated in activities and demonstrated understanding of memory education by vocalizing own strategies and ideas. Post therapy tx, OT assisted pt to room. Start Time: 10:30 Stop Time: 11:30 Total Billed Treatment Time: 60 Total Billed Treatment 1, GRP CHRISTAL [facility] NAT[employer] SCIENC[employer] DEPARTMENT CHAIR Jun 02, 2023 12:02
[2023-06-02] MEDS: HYDROcodone/ACETAMINOPHEN 5 MG/325 MG TABLET PO PRN ×2 (14:02→20:10)
[2023-06-02] MEDS: warFARin 4 MG (COUMADIN) TAB PO SCH (18:13)
[2023-06-02] MEDS: warFARin 3 MG (COUMADIN) TAB PO SCH (18:14)
[2023-06-02] MEDS: ALPRAZolam 1 MG TABLET PO SCH (20:10)
[2023-06-02] MEDS: MONTELUKAST 10 MG TABLET PO SCH (20:10)
[2023-06-02 20:27] VITALS: BP 120/56
[2023-06-03] MEDS: HYDROcodone/ACETAMINOPHEN 5 MG/325 MG TABLET PO PRN ×4 (03:55→19:37)
[2023-06-03] MEDS: CATHETER FLUSH 10 ML SYR IVP SCH ×3 (06:49→19:39)
[2023-06-03] MEDS: ENOXAPARIN 60 MG/0.6 ML SYRINGE SC SCH ×2 (06:49→18:12)
--- NOTE | 2023-06-03 06:58 | PM&R Progress Note ---
Subjective HPI/CC On Admission Date Seen by Provider: Jun 03, 2023 Time Seen by Provider: 12:30 Subjective/Events-last exam 06/03/2023: Patient doing much better Pain is controlled INR 1.8 still on Lovenox bridge Sleeping well at night 06/02/2023: No major issues No pain reported No falls INR will be monitored 06/01/2023: Patient dramatically improved Ambulating very well INR 1.3 so we will increase Coumadin and maintain Lovenox bridge No other falls Working on puzzSookasa with OT 05/31/2023: Patient doing well Pain is controlled Slow recovery Checking INR tomorrow Maintain on Lovenox bridge 05/30/2023: Patient much improved Pain controlled Labs stable INR 1.3 so initiated Lovenox injections to bridge to protect valve No falls Review of Systems General: Fatigue, Malaise Musculoskeletal: leg pain Objective Exam Vital Signs Vital Signs Date Time Temp Pulse Resp B/P (MAP) Pulse Ox O2 Delivery O2 Flow Rate FiO2 06/03/23 09:10 Room Air 06/03/23 08:49 92 0.00 06/03/23 08:00 36.7 90 16 103/52 (69) Capillary Refill : General Appearance: No Apparent Distress, WD/WN, Chronically ill HEENT: PERRL/EOMI, Normal ENT Inspection, Pharynx Normal Neck: Full Range of Motion, Normal Inspection, Non Tender, Supple, Carotid Bruit Respiratory: Chest Non Tender, Lungs Clear, Normal Breath Sounds, No Accessory Muscle Use, No Respiratory Distress Cardiovascular: Regular Rate, Rhythm, No Edema, No Gallop, No JVD, No Murmur, Normal Peripheral Pulses, Other (click) Gastrointestinal: Normal Bowel Sounds, No Organomegaly, No Pulsatile Mass, Non Tender, Soft Back: Normal Inspection, No CVA Tenderness, No Vertebral Tenderness Extremity: Normal Capillary Refill, Normal Inspection, Normal Range of Motion (except left leg), Non Tender, No Calf Tenderness, No Pedal Edema Neurologic/Psychiatric: Alert, Oriented x3, No Motor/Sensory Deficits, Normal Mood/Affect, Abnormal Gait, Motor Weakness (left leg) Skin: Normal Color, Warm/Dry Lymphatic: No Adenopathy Results/Procedures Lab Patient resulted labs reviewed. FIM Transfers Therapy Code Descriptions/Definitions Functional [place] Measure: 0=Not Assessed/NA 4=Minimal Assistance 1=Total Assistance 5=Supervision or Setup 2=Maximal Assistance 6=Modified [place] 3=Moderate Assistance 7=Complete IndependenceSCALE: Activities may be completed with or without assistive devices. 9-Ncwhuqqjco-kwmmzgb completes the activity by him/herself with no assistance from a helper. 5-Set-up or Clean-up Assistance-helper sets up or cleans up; patient completes activity. [place] assists only prior to or following the activity. 4-Supervision or Touching Assistance-helper provides verbal cues and/or touching/steadying and/or contact guard assistance as patient completes activity. Assistance may be provided throughout the activity or intermittently. 3-Partial/Moderate Assistance-helper does LESS THAN HALF the effort. [place] lifts, holds or supports trunk or limbs, but provides less than half the effort. 2-Substantial/Maximal Assistance-helper does MORE THAN HALF the effort. [place] lifts or holds trunk or limbs and provides more than half the effort. 8-Evxdstgia-ninnnn does ALL the effort. Patient does none of the effort to complete the activity. Or, the assistance of 2 or more helpers is required for the patient to complete the activity. If activity was not attempted, code reason: 7-Patient Refused. 9-Not Applicable-not attempted and the patient did not perform the activity before the current illness, exacerbation or injury. 10-Not Attempted due to Environmental Limitations-(lack of equipment, weather restraints, etc.). 88-Not Attempted due to Medical Conditions or Safety Concerns. Roll Left to Right (QC): 6 Sit to Lying (QC): 3 (Michael with (L) LE and leg before and after school daycare worker) Sit to Stand (QC): 6 Chair/Rdq-ty-Drnbc Xfer(QC): 4 Car Transfer (QC): 3 (Min (A) /c (L) LE assist.) Gait Training Does the Patient Walk?: Yes Walk 10 feet (QC): 6 Walk 50 ft with 2 Turns(QC): 4 Walk 150 ft (QC): 4 Walking 10ft/uneven surface-QC: 3 (Min (A) /c FWW) Gait Assistive Device: FWW Wheelchair Training Does the Pt Use a Wheelchair?: No Wheel 50 ft with 2 turns (QC): 9 Wheel 150 ft (QC): 9 Stair Training 1 Step (curb) (QC): 3 (Min (A) /c safety cues for safe technique for FWW use x 2) 4 Steps (QC): 3 (Min (A) /c (B) rails) 12 Steps (QC): 88 (NT due to fatigue) Balance Picking up an Object (QC): 4 (CGA /c setter molding and coremaking machines use) ADL-Treatment Eating (QC): 5 (required assistance opening small containers) Oral Hygiene (QC): 5 Shower/Bathe Self (QC): 4 (SBA. LH sponge used for LB bathing) Upper Body Dressing (QC): 5 Lower Body Dressing (QC): 4 (SBA with AE, min VCs for hip precautions) On/Off Footwear (QC): 4 (SBA with sock aide, setter molding and coremaking machines, and shoe funnel. ) Toileting Hygiene (QC): 4 Toilet Transfer (QC): 4 Assessment/Plan Assessment and Plan Assess & Plan/Chief Complaint Assessment: Left hip fracture Mechanical heart valve Warfarin anticoagulation HTN Post op anemia from blood loss Poor nutrition B12 def maintained on supplement GERD Iron deficiency 05/30/2023: Continue aggressive therapy Pain control Lovenox bridge 05/31/2023: Check INR tomorrow Continue therapy IV iron infusion 3 doses 06/01/2023: IV iron infusion Increase Coumadin 06/02/2023: Monitor INR Monitor pain 06/03/2023: Continue Lovenox bridge Pain control (1) Femoral neck fracture Status: Acute BIBI HOGUE DO Jun 03, 2023 06:58
[2023-06-03 07:17] LABS: INR 1.8 (0.8-1.4); PROTHROMBIN TIME PATIENT 21.6 SEC (12.2-14.7)
[2023-06-03 08:00] VITALS: BP 103/52
[2023-06-03] MEDS: ADVAIR IH SCH ×2 (08:49→21:39)
[2023-06-03] MEDS: SUCRALFATE 1 GM TABLET PO SCH ×2 (08:57→17:17)
[2023-06-03] MEDS: IRON SUCROSE 200 MG/10 ML VIAL IV SCH (08:57)
[2023-06-03] MEDS: SENNA W/DOCUSATE TABLET PO SCH ×2 (08:58→19:37)
[2023-06-03] MEDS: CALCIUM CARBONATE 600 MG +VITAMIN D TABLET PO SCH (08:59)
[2023-06-03] MEDS: DOCUSATE SODIUM 100 MG CAPSULE PO SCH ×2 (08:59→19:37)
[2023-06-03] MEDS: CYANOCOBALAMIN 1,000 MCG TABLET PO SCH (08:59)
[2023-06-03] MEDS: ALBUTEROL SULFATE 4 MG PO SCH (09:00)
--- NOTE | 2023-06-03 14:49 | Occupational Ther Daily Note ---
OT Current Status-Daily Note Subjective Pt was received sitting in chair. Pt very pleasant and willing to participate in therapy. Throughout session pt reported increased fatigue and pain, though was willing to continue to participate in therapy. Pain Numeric Pain Scale: 7 Location: Incisional Location Body Site: Hip Pain Description: Ache Mental Status/Objective Patient Orientation: Person, Place, Time, Situation Attachments: IV ADL-Treatment Therapy Code Descriptions/Definitions Functional [place] Measure: 0=Not Assessed/NA 4=Minimal Assistance 1=Total Assistance 5=Supervision or Setup 2=Maximal Assistance 6=Modified [place] 3=Moderate Assistance 7=Complete IndependenceSCALE: Activities may be completed with or without assistive devices. 1-Lkypjpctba-bbuesgv completes the activity by him/herself with no assistance from a helper. 5-Set-up or Clean-up Assistance-helper sets up or cleans up; patient completes activity. [place] assists only prior to or following the activity. 4-Supervision or Touching Assistance-helper provides verbal cues and/or touching /steadying and/or contact guard assistance as patient completes activity. Assistance may be provided throughout the activity or intermittently. 3-Partial/Moderate Assistance-helper does LESS THAN HALF the effort. [place] lifts, holds or supports trunk or limbs, but provides less than half the effort. 2-Substantial/Maximal Assistance-helper does MORE THAN HALF the effort. [place] lifts or holds trunk or limbs and provides more than half the effort. 7-Pzvwuzfff-vrsnpc does ALL the effort. Patient does none of the effort to complete the activity. Or, the assistance of 2 or more helpers is required for the patient to complete the activity. If activity was not attempted, code reason: 7-Patient Refused. 9-Not Applicable-not attempted and the patient did not perform the activity before the current illness, exacerbation or injury. 10-Not Attempted due to Environmental Limitations-(lack of equipment, weather restraints, etc.). 88-Not Attempted due to Medical Conditions or Safety Concerns. Eating (QC): 5 On/Off Footwear: 1 (to straighten sock on incisional leg) Other Treatment PT/OT cotreat completed due to the need for two skilled therapists to increase safety during high level activities. OT focused on activity tolerance, ADL independence, UE strength and functional balance. Please refer to the PT note for details following PT care. Pt completed functional mobility for ~30ft X2 with FWW and supervision for balance, requiring min cues for safety. Pt completed dynamic standing activity for ~10 minutes x3 in with supervision and no cues for safety. Pt completed functional dynamic sitting activity for ~15mins x3 in unsupported sitting with supervision and no cues for safety. Pt educated on and completed UE strengthening HEP with yellow theraband, focusing on shoulder flexion, abduction, adduction; elbow flexion, extension; correctional facility psychiatrist strength. Pt completed bed mobility independently with use of leg otr company truck driver to bring her LLE up onto the bed. Education OT Patient Education: Correct positioning, Energy conservation, Home exercise program, Modified ADL techniques, Progress toward Goal/Update tx plan, Purpose of tx/functional activities, Reviewed precautions, Rehab process, Safety issues, Transfer techniques, Use of adapted equipment Teaching Recipient: Patient Teaching Methods: Demonstration, Discussion Response to Teaching: Verbalize Understanding, Return Demonstration OT Short Term Goals Short Term Goals Time Frame: Jun 08, 2023 Shower/bathe self: 5 Upper body dressin Lower body dressin Putting on/taking off footwear: 5 OT Mcfp Goals Mcfp Goals Time Frame: Jun 17, 2023 Acute change in mental status: 0 Inattention: 0 Disorganized thinkin Altered level of consciousness: 0 Eating (QC): 6 Oral Hygiene (QC): 6 Toileting Hygiene (QC): 6 Shower/Bathe Self (QC): 6 Upper Body Dressing (QC): 6 Lower Body Dressing (QC): 6 On/Off Footwear (QC): 6 Additional Goals: 1-Demonstrate ADL Tasks, 2-Verbalize Understanding, 3-Impro veStrength/Jp 1=Demonstrate adherence to instructed precautions during ADL tasks. 2=Patient will verbalize/demonstrate understanding of assistive devices/modifications for ADL. 3=Patient will improve strength/tolerance for activity to enable patient to perform ADL's. OT Education/Plan Problem List/Assessment Assessment: Decreased Activ Tolerance, Decreased Safety Aware, Decreased UE Strength, Impaired Bed Mobility, Impaired Coordination, Impaired Funct Balance, Impaired I ADL's, Impaired Self-Care Skills Discharge Recommendations Plan/Recommendations: Continue POC Treatment Plan/Plan of Care Treatment,Training & Education: Yes Patient would benefit from OT for education, treatment and training to promote independence in ADL's, mobility, safety and/or upper extremity function for ADL's. Plan of Care: ADL Retraining, Functional Mobility, Group Exercise/Act as Ind, UE Funct Exercise/Act Treatment Duration: Jun 17, 2023 Frequency: At least 5 of 7 days/Wk (IRF) Estimated Hrs Per Day: 1.5 hours per day Agreement: Yes Rehab Potential: Good Time Start Time: 12:40 Stop Time: 02:10 (OT/PT cotreat [id number]) DATE: Jun 03, 2023 Total Time Billed (hr/min): 90 Billed Treatment Time 1, ADL 1, EX 1, FA 4 Jaimee Keys OTR/L Jun 03, 2023 14:49
--- NOTE | 2023-06-03 14:49 | Physical Therapy Daily Note ---
PT Daily Note-Current Subjective Pt found lying in bed upon entry. Agreed to PT. Reports that she is having a little bit of L hip soreness but it is not bad. Does not rate pain. Pain Section J - Health Conditions 1. Rarely or not at all 2. Occasionally 3. Frequently 4. Almost constantly 8. Unable to answer Pain Effect on Sleep: 1 Pain Interference with Therapy: 1 Pain Interference w/Day-to-Day: 1 Mental Status Patient Orientation: Person, Place Transfers SCALE: Activities may be completed with or without assistive devices. 3-Mobxbpjmid-bcxqmqu completes the activity by him/herself with no assistance from a helper. 5-Set-up or Clean-up Assistance-helper sets up or cleans up; patient completes activity. [place] assists only prior to or following the activity. 4-Supervision or Touching Assistance-helper provides verbal cues and/or touching/steadying and/or contact guard assistance as patient completes activity. Assistance may be provided throughout the activity or intermittently. 3-Partial/Moderate Assistance-helper does LESS THAN HALF the effort. [place] lifts, holds or supports trunk or limbs, but provides less than half the effort. 2-Substantial/Maximal Assistance-helper does MORE THAN HALF the effort. [place] lifts or holds trunk or limbs and provides more than half the effort. 8-Ninsexchy-hgdpzd does ALL the effort. Patient does none of the effort to complete the activity. Or, the assistance of 2 or more helpers is required for the patient to complete the activity. If activity was not attempted, code reason: 7-Patient Refused. 9-Not Applicable-not attempted and the patient did not perform the activity before the current illness, exacerbation or injury. 10-Not Attempted due to Environmental Limitations-(lack of equipment, weather restraints, etc.). 88-Not Attempted due to Medical Conditions or Safety Concerns. Lying to Sitting/Side of Bed(Q: 4 Sit to Stand (QC): 6 Weight Bearing Right Lower Extremity: Right Full Weight Bearing Left Lower Extremity: Left Weight Bearing/Tolerated Gait Training Does the Patient Walk?: Yes Distance: 200ft x 2, 60 Walk 10 feet (QC): 6 Walk 50 ft with 2 Turns(QC): 6 Walk 150 ft (QC): 6 Gait Persons Needed: 1 Gait Assistive Device: FWW Treatments Standing Therapeutic Exercises (B) x 15ea: - Side-stepping - Marching - Heel/toe raises - Hip abd - Hip ext - Hamstring curls Seated Therapeutic Exercises (B) x 20ea: - Hip add - Hip abd - Marching - LAQs - Heel/toe raises Assessment Current Status: Good Progress Pt performs lying to sitting transfer /c use of leg optical manager and SBA only due to strength deficits. Pt very slow to complete but required no touching assistance from helper. Sit to stand transfer performed from edge of bed and chair /c B armrests independently. Pt ambulates independently /c use of a FWW up to 200 feet before requiring a short seated rest break. Pt demonstrated a steady gait speed /c no loss of balance. Pt displays good muscle endurance and strength throughout visit. Required very little rest time to complete treatment. No obvious signs of increased muscle fatigue displayed near end of visit. Pt left seated in room chair post-treatment /c call light in place and all needs met. Continue to progress pt per POC. PT Flying Teacher Goals [facility] Living Goals PT Flying Teacher Goals Time Frame: Jun 13, 2023 Roll Left & Right (QC): 6 (/c pillow between knees) Sit to Lying (QC): 6 (/c leg optical manager if needed) Lying-Sitting on Side/Bed(QC): 6 (/c leg optical manager if needed) Sit to Stand (QC): 6 Chair/Xuf-yw-Mfoxl Xfer(QC): 6 (/c FWW) Toilet Transfer (QC): 6 Car Transfer (QC): 5 (set up to move seat back ) Does the Patient Walk: Yes Walk 10 feet (QC): 6 (/c FWW) Walk 50ft with 2 Turns (QC): 6 (/c FWW) Walk 150 ft (QC): 6 (/c FWW) Walking 10ft on Uneven Surface: 6 (/c FWW) 1 Step (curb) (QC): 6 (/c FWW) 4 Steps (QC): 6 (/c railings) 12 Steps (QC): 6 (/c railings) Picking up an Object (QC): 6 (/c manager stars) Does the Pt use WC or Scooter?: No Wheel 50 feet with 2 turns (QC: 9 Wheel 150 feet: 9 PT Plan Treatment/Plan Treatment Plan: Continue Plan of Care Treatment Plan: Bed Mobility, Concurrent Therapy, Education, Functional Activity Jp, Functional Strength, Group Therapy, Gait, Safety, Therapeutic Exercise, Transfers Treatment Duration: Jun 13, 2023 Frequency: At least 5 of 7 days/Wk (IRF) Estimated Hrs Per Day: 1.5 hours per day Patient and/or Family Agrees t: Yes Time Time In: 1100 Time Out: 1200 DATE: Jun 03, 2023 Total Billed Treatment Time: 60 Total Billed Treatment 1 visit GT x 2 EX x 2 ALEXIS PARIKH PRODUCTION ASSOCIATE Jun 03, 2023 14:49
--- NOTE | 2023-06-03 15:36 | Physical Therapy Daily Note ---
PT Daily Note-Current Subjective Pt sitting at table working w/OT upon arrival. Pt agrees to PT/OT co-treat. Pain Numeric Pain Scale: 7 Location: Left Location Body Site: Hip Pain Description: Ache Section J - Health Conditions 1. Rarely or not at all 2. Occasionally 3. Frequently 4. Almost constantly 8. Unable to answer Pain Effect on Sleep: 1 Pain Interference with Therapy: 1 Pain Interference w/Day-to-Day: 1 Mental Status Patient Orientation: Person, Place, Time, Situation Transfers SCALE: Activities may be completed with or without assistive devices. 3-Qctvzplqyo-gyjtxki completes the activity by him/herself with no assistance from a helper. 5-Set-up or Clean-up Assistance-helper sets up or cleans up; patient completes activity. [place] assists only prior to or following the activity. 4-Supervision or Touching Assistance-helper provides verbal cues and/or touching/steadying and/or contact guard assistance as patient completes activity. Assistance may be provided throughout the activity or intermittently. 3-Partial/Moderate Assistance-helper does LESS THAN HALF the effort. [place] lifts, holds or supports trunk or limbs, but provides less than half the effort. 2-Substantial/Maximal Assistance-helper does MORE THAN HALF the effort. [place] lifts or holds trunk or limbs and provides more than half the effort. 5-Oikcwntek-yhfjul does ALL the effort. Patient does none of the effort to complete the activity. Or, the assistance of 2 or more helpers is required for the patient to complete the activity. If activity was not attempted, code reason: 7-Patient Refused. 9-Not Applicable-not attempted and the patient did not perform the activity before the current illness, exacerbation or injury. 10-Not Attempted due to Environmental Limitations-(lack of equipment, weather restraints, etc.). 88-Not Attempted due to Medical Conditions or Safety Concerns. Sit to Stand (QC): 4 Weight Bearing Right Lower Extremity: Right Full Weight Bearing Left Lower Extremity: Left Weight Bearing/Tolerated Gait Training Does the Patient Walk?: Yes Distance: 50' Walk 10 feet (QC): 4 Walk 50 ft with 2 Turns(QC): 4 Gait Assistive Device: FWW Treatments PT/OT cotreat completed due to the need for two skilled therapists to increase safety during high level activities. OT focused on activity tolerance, ADL independence, UE strength and functional balance. PT focused on dynamic sitting & standing balance, transfers and ambulation. Pt completed functional mobility for ~50ft. Pt completed dynamic standing activity for ~15 minutes in with supervision and no cues for safety. Pt completed functional dynamic sitting activity for ~15mins in unsupported sitting with supervision and no cues for safety. Pt completed bed mobility independently with use of leg public policy coordinator to bring her LLE up onto the bed. Assessment Current Status: Good Progress Pt roxanna. tx well but was fatigued by end of tx and need extended time even w/leg public policy coordinator to get LE into bed. PT Prison Goals Prison Goals PT Prison Goals Time Frame: Jun 13, 2023 Roll Left & Right (QC): 6 (/c pillow between knees) Sit to Lying (QC): 6 (/c leg public policy coordinator if needed) Lying-Sitting on Side/Bed(QC): 6 (/c leg public policy coordinator if needed) Sit to Stand (QC): 6 Chair/Pqr-fj-Ihopz Xfer(QC): 6 (/c FWW) Toilet Transfer (QC): 6 Car Transfer (QC): 5 (set up to move seat back ) Does the Patient Walk: Yes Walk 10 feet (QC): 6 (/c FWW) Walk 50ft with 2 Turns (QC): 6 (/c FWW) Walk 150 ft (QC): 6 (/c FWW) Walking 10ft on Uneven Surface: 6 (/c FWW) 1 Step (curb) (QC): 6 (/c FWW) 4 Steps (QC): 6 (/c railings) 12 Steps (QC): 6 (/c railings) Picking up an Object (QC): 6 (/c car packer) Does the Pt use WC or Scooter?: No Wheel 50 feet with 2 turns (QC: 9 Wheel 150 feet: 9 PT Plan Problem List Problem List: Activity Tolerance, Functional Strength Treatment/Plan Treatment Plan: Continue Plan of Care Treatment Plan: Bed Mobility, Concurrent Therapy, Education, Functional Activity Jp, Functional Strength, Group Therapy, Gait, Safety, Therapeutic Ex ercise, Transfers Treatment Duration: Jun 13, 2023 Frequency: At least 5 of 7 days/Wk (IRF) Estimated Hrs Per Day: 1.5 hours per day Patient and/or Family Agrees t: Yes Time Time In: 1340 Time Out: 1410 DATE: Jun 03, 2023 Total Billed Treatment Time: 30 Total Billed Treatment 1, FA (20m) & GT (10m) MARIS GRISSOM EXTENSION AGENT Jun 03, 2023 15:36
[2023-06-03] MEDS: warFARin 4 MG (COUMADIN) TAB PO SCH (17:17)
[2023-06-03] MEDS: warFARin 3 MG (COUMADIN) TAB PO SCH (17:17)
[2023-06-03] MEDS: ALPRAZolam 1 MG TABLET PO SCH (19:37)
[2023-06-03] MEDS: MONTELUKAST 10 MG TABLET PO SCH (19:37)
[2023-06-03 20:48] VITALS: BP 107/55
[2023-06-04] MEDS: ENOXAPARIN 60 MG/0.6 ML SYRINGE SC SCH (05:58)
[2023-06-04] MEDS: CATHETER FLUSH 10 ML SYR IVP SCH ×3 (05:58→19:51)
--- NOTE | 2023-06-04 06:35 | PM&R Progress Note ---
Subjective HPI/CC On Admission Date Seen by Provider: Jun 04, 2023 Time Seen by Provider: 12:30 Subjective/Events-last exam 06/04/2023: Patient doing well Pain is pretty well-controlled INR 2.5 so we will DC Lovenox bridge IV iron infusion tolerated 06/03/2023: Patient doing much better Pain is controlled INR 1.8 still on Lovenox bridge Sleeping well at night 06/02/2023: No major issues No pain reported No falls INR will be monitored 06/01/2023: Patient dramatically improved Ambulating very well INR 1.3 so we will increase Coumadin and maintain Lovenox bridge No other falls Working on puzzles with OT 05/31/2023: Patient doing well Pain is controlled Slow recovery Checking INR tomorrow Maintain on Lovenox bridge 05/30/2023: Patient much improved Pain controlled Labs stable INR 1.3 so initiated Lovenox injections to bridge to protect valve No falls Review of Systems General: Fatigue, Malaise Musculoskeletal: leg pain Objective Exam Vital Signs Vital Signs Date Time Temp Pulse Resp B/P (MAP) Pulse Ox O2 Delivery O2 Flow Rate FiO2 06/04/23 21:07 92 Room Air 06/04/23 19:56 36.2 74 18 124/61 (82) 06/04/23 07:44 0.00 Capillary Refill : General Appearance: No Apparent Distress, WD/WN, Chronically ill HEENT: PERRL/EOMI, Normal ENT Inspection, Pharynx Normal Neck: Full Range of Motion, Normal Inspection, Non Tender, Supple, Carotid Bruit Respiratory: Chest Non Tender, Lungs Clear, Normal Breath Sounds, No Accessory Muscle Use, No Respiratory Distress Cardiovascular: Regular Rate, Rhythm, No Edema, No Gallop, No JVD, No Murmur, Normal Peripheral Pulses, Other (click) Gastrointestinal: Normal Bowel Sounds, No Organomegaly, No Pulsatile Mass, Non Tender, Soft Back: Normal Inspection, No CVA Tenderness, No Vertebral Tenderness Extremity: Normal Capillary Refill, Normal Inspection, Normal Range of Motion (except left leg), Non Tender, No Calf Tenderness, No Pedal Edema Neurologic/Psychiatric: Alert, Oriented x3, No Motor/Sensory Deficits, Normal Mood/Affect, Abnormal Gait, Motor Weakness (left leg) Skin: Normal Color, Warm/Dry Lymphatic: No Adenopathy Results/Procedures Lab Patient resulted labs reviewed. FIM Transfers Therapy Code Descriptions/Definitions Functional [place] Measure: 0=Not Assessed/NA 4=Minimal Assistance 1=Total Assistance 5=Supervision or Setup 2=Maximal Assistance 6=Modified [place] 3=Moderate Assistance 7=Complete IndependenceSCALE: Activities may be completed with or without assistive devices. 2-Namtnzyvvl-hclmxki completes the activity by him/herself with no assistance from a helper. 5-Set-up or Clean-up Assistance-helper sets up or cleans up; patient completes activity. [place] assists only prior to or following the activity. 4-Supervision or Touching Assistance-helper provides verbal cues and/or touching/steadying and/or contact guard assistance as patient completes activity. Assistance may be provided throughout the activity or intermittently. 3-Partial/Moderate Assistance-helper does LESS THAN HALF the effort. [place] lifts, holds or supports trunk or limbs, but provides less than half the effort. 2-Substantial/Maximal Assistance-helper does MORE THAN HALF the effort. [place] lifts or holds trunk or limbs and provides more than half the effort. 3-Vgcjivudm-tuuifo does ALL the effort. Patient does none of the effort to complete the activity. Or, the assistance of 2 or more helpers is required for the patient to complete the activity. If activity was not attempted, code reason: 7-Patient Refused. 9-Not Applicable-not attempted and the patient did not perform the activity before the current illness, exacerbation or injury. 10-Not Attempted due to Environmental Limitations-(lack of equipment, weather restraints, etc.). 88-Not Attempted due to Medical Conditions or Safety Concerns. Roll Left to Right (QC): 6 Sit to Lying (QC): 3 (Michael with (L) LE and leg sketch artist) Sit to Stand (QC): 4 Chair/Qfp-qg-Xqxcv Xfer(QC): 4 Car Transfer (QC): 3 (Min (A) /c (L) LE assist.) Gait Training Does the Patient Walk?: Yes Distance: 50' Walk 10 feet (QC): 4 Walk 50 ft with 2 Turns(QC): 4 Walk 150 ft (QC): 6 Walking 10ft/uneven surface-QC: 3 (Min (A) /c FWW) Gait Persons Needed: 1 Gait Assistive Device: FWW Wheelchair Training Does the Pt Use a Wheelchair?: No Wheel 50 ft with 2 turns (QC): 9 Wheel 150 ft (QC): 9 Stair Training 1 Step (curb) (QC): 3 (Min (A) /c safety cues for safe technique for FWW use x 2) 4 Steps (QC): 3 (Min (A) /c (B) rails) 12 Steps (QC): 88 (NT due to fatigue) Balance Picking up an Object (QC): 4 (CGA /c streetcar dispatcher use) ADL-Treatment Eating (QC): 5 Oral Hygiene (QC): 5 Shower/Bathe Self (QC): 4 (SBA. LH sponge used for LB bathing) Upper Body Dressing (QC): 5 Lower Body Dressing (QC): 4 (SBA with AE, min VCs for hip precautions) On/Off Footwear (QC): 1 (to straighten sock on incisional leg) Toileting Hygiene (QC): 4 Toilet Transfer (QC): 4 Assessment/Plan Assessment and Plan Assess & Plan/Chief Complaint Assessment: Left hip fracture Mechanical heart valve Warfarin anticoagulation HTN Post op anemia from blood loss Poor nutrition B12 def maintained on supplement GERD Iron deficiency 05/30/2023: Continue aggressive therapy Pain control Lovenox bridge 05/31/2023: Check INR tomorrow Continue therapy IV iron infusion 3 doses 06/01/2023: IV iron infusion Increase Coumadin 06/02/2023: Monitor INR Monitor pain 06/03/2023: Continue Lovenox bridge Pain control 06/04/2023: DC Lovenox bridge Change Coumadin from 7 mg to 6 mg since she usually takes 5 Mg at home (1) Femoral neck fracture Status: Acute BIBI HOGUE DO Jun 04, 2023 06:35
[2023-06-04 07:15] LABS: INR 2.5 (0.8-1.4); PROTHROMBIN TIME PATIENT 28.1 SEC (12.2-14.7)
[2023-06-04 07:30] VITALS: BP 105/56
[2023-06-04] MEDS: ADVAIR IH SCH ×2 (07:44→21:07)
[2023-06-04] MEDS: CALCIUM CARBONATE 600 MG +VITAMIN D TABLET PO SCH (08:37)
[2023-06-04] MEDS: CYANOCOBALAMIN 1,000 MCG TABLET PO SCH (08:37)
[2023-06-04] MEDS: DOCUSATE SODIUM 100 MG CAPSULE PO SCH ×2 (08:37→19:50)
[2023-06-04] MEDS: SUCRALFATE 1 GM TABLET PO SCH ×2 (08:37→18:00)
[2023-06-04] MEDS: SENNA W/DOCUSATE TABLET PO SCH ×2 (08:37→19:50)
[2023-06-04] MEDS: HYDROcodone/ACETAMINOPHEN 5 MG/325 MG TABLET PO PRN ×2 (14:59→19:51)
[2023-06-04] MEDS ORDERED: HYDROcodone/ACETAMINOPHEN 5 MG/325 MG TABLET PO PRN (15:00)
[2023-06-04] MEDS: warFARin 4 MG (COUMADIN) TAB PO SCH (18:00)
[2023-06-04] MEDS: warFARin 2 MG (COUMADIN) TAB PO SCH (18:00)
[2023-06-04] MEDS: ALPRAZolam 1 MG TABLET PO SCH (19:50)
[2023-06-04] MEDS: MONTELUKAST 10 MG TABLET PO SCH (19:50)
[2023-06-04 19:56] VITALS: BP 124/61
[2023-06-05] MEDS: CATHETER FLUSH 10 ML SYR IVP SCH ×3 (05:20→20:09)
--- NOTE | 2023-06-05 06:46 | PM&R Progress Note ---
Subjective HPI/CC On Admission Date Seen by Provider: Jun 05, 2023 Time Seen by Provider: 12:30 Subjective/Events-last exam 06/05/2023: Doing well at bedside No falls Pain control Reviewed meds and labs 06/04/2023: Patient doing well Pain is pretty well-controlled INR 2.5 so we will DC Lovenox bridge IV iron infusion tolerated 06/03/2023: Patient doing much better Pain is controlled INR 1.8 still on Lovenox bridge Sleeping well at night 06/02/2023: No major issues No pain reported No falls INR will be monitored 06/01/2023: Patient dramatically improved Ambulating very well INR 1.3 so we will increase Coumadin and maintain Lovenox bridge No other falls Working on puzzles with OT 05/31/2023: Patient doing well Pain is controlled Slow recovery Checking INR tomorrow Maintain on Lovenox bridge 05/30/2023: Patient much improved Pain controlled Labs stable INR 1.3 so initiated Lovenox injections to bridge to protect valve No falls Review of Systems General: Fatigue, Malaise Objective Exam Vital Signs Vital Signs Date Time Temp Pulse Resp B/P (MAP) Pulse Ox O2 Delivery O2 Flow Rate FiO2 06/05/23 10:11 96 Room Air 06/05/23 08:00 36.8 100 22 130/59 (82) 06/04/23 07:44 0.00 Capillary Refill : General Appearance: No Apparent Distress, WD/WN, Chronically ill HEENT: PERRL/EOMI, Normal ENT Inspection, Pharynx Normal Neck: Full Range of Motion, Normal Inspection, Non Tender, Supple, Carotid Bruit Respiratory: Chest Non Tender, Lungs Clear, Normal Breath Sounds, No Accessory Muscle Use, No Respiratory Distress Cardiovascular: Regular Rate, Rhythm, No Edema, No Gallop, No JVD, No Murmur, Normal Peripheral Pulses, Other (click) Gastrointestinal: Normal Bowel Sounds, No Organomegaly, No Pulsatile Mass, Non Tender, Soft Back: Normal Inspection, No CVA Tenderness, No Vertebral Tenderness Extremity: Normal Capillary Refill, Normal Inspection, Normal Range of Motion (except left leg), Non Tender, No Calf Tenderness, No Pedal Edema Neurologic/Psychiatric: Alert, Oriented x3, No Motor/Sensory Deficits, Normal Mood/Affect, Abnormal Gait, Motor Weakness (left leg) Skin: Normal Color, Warm/Dry Lymphatic: No Adenopathy Results/Procedures Lab Patient resulted labs reviewed. FIM Transfers Therapy Code Descriptions/Definitions Functional [place] Measure: 0=Not Assessed/NA 4=Minimal Assistance 1=Total Assistance 5=Supervision or Setup 2=Maximal Assistance 6=Modified [place] 3=Moderate Assistance 7=Complete IndependenceSCALE: Activities may be completed with or without assistive devices. 0-Nyaxpbyepx-phxzonz completes the activity by him/herself with no assistance from a helper. 5-Set-up or Clean-up Assistance-helper sets up or cleans up; patient completes activity. [place] assists only prior to or following the activity. 4-Supervision or Touching Assistance-helper provides verbal cues and/or to uching/steadying and/or contact guard assistance as patient completes activity. Assistance may be provided throughout the activity or intermittently. 3-Partial/Moderate Assistance-helper does LESS THAN HALF the effort. [place] lifts, holds or supports trunk or limbs, but provides less than half the effort. 2-Substantial/Maximal Assistance-helper does MORE THAN HALF the effort. [place] lifts or holds trunk or limbs and provides more than half the effort. 2-Ipvjbikme-jqnqww does ALL the effort. Patient does none of the effort to complete the activity. Or, the assistance of 2 or more helpers is required for the patient to complete the activity. If activity was not attempted, code reason: 7-Patient Refused. 9-Not Applicable-not attempted and the patient did not perform the activity before the current illness, exacerbation or injury. 10-Not Attempted due to Environmental Limitations-(lack of equipment, weather restraints, etc.). 88-Not Attempted due to Medical Conditions or Safety Concerns. Roll Left to Right (QC): 6 Sit to Lying (QC): 3 (Michael with (L) LE and leg pneumatic tube operator) Sit to Stand (QC): 4 Chair/Hyn-gc-Ujgdp Xfer(QC): 4 Car Transfer (QC): 3 (Min (A) /c (L) LE assist.) Gait Training Does the Patient Walk?: Yes Distance: 50' Walk 10 feet (QC): 4 Walk 50 ft with 2 Turns(QC): 4 Walk 150 ft (QC): 6 Walking 10ft/uneven surface-QC: 3 (Min (A) /c FWW) Gait Persons Needed: 1 Gait Assistive Device: FWW Wheelchair Training Does the Pt Use a Wheelchair?: No Wheel 50 ft with 2 turns (QC): 9 Wheel 150 ft (QC): 9 Stair Training 1 Step (curb) (QC): 3 (Min (A) /c safety cues for safe technique for FWW use x 2) 4 Steps (QC): 3 (Min (A) /c (B) rails) 12 Steps (QC): 88 (NT due to fatigue) Balance Picking up an Object (QC): 4 (CGA /c hog stomach preparer use) ADL-Treatment Eating (QC): 5 Oral Hygiene (QC): 5 Shower/Bathe Self (QC): 4 (SBA. LH sponge used for LB bathing) Upper Body Dressing (QC): 5 Lower Body Dressing (QC): 4 (SBA with AE, min VCs for hip precautions) On/Off Footwear (QC): 1 (to straighten sock on incisional leg) Toileting Hygiene (QC): 4 Toilet Transfer (QC): 4 Assessment/Plan Assessment and Plan Assess & Plan/Chief Complaint Assessment: Left hip fracture Mechanical heart valve Warfarin anticoagulation HTN Post op anemia from blood loss Poor nutrition B12 def maintained on supplement GERD Iron deficiency 05/30/2023: Continue aggressive therapy Pain control Lovenox bridge 05/31/2023: Check INR tomorrow Continue therapy IV iron infusion 3 doses 06/01/2023: IV iron infusion Increase Coumadin 06/02/2023: Monitor INR Monitor pain 06/03/2023: Continue Lovenox bridge Pain control 06/04/2023: DC Lovenox bridge Change Coumadin from 7 mg to 6 mg since she usually takes 5 Mg at home 06/05/2023: Monitor closely Check labs in am (1) Femoral neck fracture Status: Acute BIBI HOGUE DO Jun 05, 2023 06:46
[2023-06-05 08:00] VITALS: BP 130/59
[2023-06-05] MEDS: SUCRALFATE 1 GM TABLET PO SCH ×2 (08:13→17:17)
[2023-06-05] MEDS: CYANOCOBALAMIN 1,000 MCG TABLET PO SCH (08:13)
[2023-06-05] MEDS: DOCUSATE SODIUM 100 MG CAPSULE PO SCH ×2 (08:13→20:06)
[2023-06-05] MEDS: IRON SUCROSE 200 MG/10 ML VIAL IV SCH (08:13)
[2023-06-05] MEDS: CALCIUM CARBONATE 600 MG +VITAMIN D TABLET PO SCH (08:13)
[2023-06-05] MEDS: SENNA W/DOCUSATE TABLET PO SCH ×2 (08:13→20:25)
[2023-06-05] MEDS: ADVAIR IH SCH ×2 (10:10→21:31)
[2023-06-05] MEDS: warFARin 4 MG (COUMADIN) TAB PO SCH (17:17)
[2023-06-05] MEDS: warFARin 2 MG (COUMADIN) TAB PO SCH (17:17)
[2023-06-05] MEDS: MONTELUKAST 10 MG TABLET PO SCH (20:06)
[2023-06-05] MEDS: ALPRAZolam 1 MG TABLET PO SCH (20:06)
[2023-06-05] MEDS: HYDROcodone/ACETAMINOPHEN 5 MG/325 MG TABLET PO PRN (20:08)
[2023-06-05 20:11] VITALS: BP 116/66
[2023-06-06] MEDS: CATHETER FLUSH 10 ML SYR IVP SCH ×3 (05:12→20:45)
[2023-06-06 06:09] LABS: BASOPHILS # (AUTO) 0.1 10^3/uL (0.0-0.1); BASOPHILS % (AUTO) 1 % (0-10); EOSINOPHILS # (AUTO) 0.4 10^3/uL (0.0-0.3); EOSINOPHILS % (AUTO) 6 % (0-10); HEMATOCRIT 27 % (35-52); HEMOGLOBIN 8.8 g/dL (11.5-16.0); LYMPHOCYTES # (AUTO) 1.3 10^3/uL (1.0-4.0); LYMPHOCYTES % (AUTO) 20 % (12-44); MEAN CORPUSCULAR HEMOGLOBIN 32 pg (25-34); MEAN CORPUSCULAR HGB CONC 33 g/dL (32-36); MEAN CORPUSCULAR VOLUME 99 fL (80-99); MEAN PLATELET VOLUME 10.1 fL (9.0-12.2); MONOCYTES # (AUTO) 0.5 10^3/uL (0.0-1.0); MONOCYTES % (AUTO) 8 % (0-12); NEUTROPHILS # (AUTO) 4.2 10^3/uL (1.8-7.8); NEUTROPHILS % (AUTO) 65 % (42-75); PLATELET COUNT 285 10^3/uL (130-400); WHITE BLOOD COUNT 6.5 10^3/uL (4.3-11.0)
[2023-06-06 06:17] LABS: INR 2.2 (0.8-1.4); PROTHROMBIN TIME PATIENT 25.2 SEC (12.2-14.7)
[2023-06-06 06:33] LABS: ALBUMIN 2.9 GM/DL (3.2-4.5); BILIRUBIN,TOTAL 0.3 MG/DL (0.1-1.0); CALCIUM 8.9 MG/DL (8.5-10.1); CREATININE SERUM 0.78 MG/DL (0.60-1.30); POTASSIUM 4.7 MMOL/L (3.6-5.0); TOTAL PROTEIN 5.3 GM/DL (6.4-8.2)
--- NOTE | 2023-06-06 07:18 | PM&R Progress Note ---
Subjective HPI/CC On Admission Date Seen by Provider: Jun 06, 2023 Time Seen by Provider: 09:00 Subjective/Events-last exam 06/06/2023: Patient doing well No pain is reported She is walking Ambulating really well INR stable 06/05/2023: Doing well at bedside No falls Pain control Reviewed meds and labs 06/04/2023: Patient doing well Pain is pretty well-controlled INR 2.5 so we will DC Lovenox bridge IV iron infusion tolerated 06/03/2023: Patient doing much better Pain is controlled INR 1.8 still on Lovenox bridge Sleeping well at night 06/02/2023: No major issues No pain reported No falls INR will be monitored 06/01/2023: Patient dramatically improved Ambulating very well INR 1.3 so we will increase Coumadin and maintain Lovenox bridge No other falls Working on puzzles with OT 05/31/2023: Patient doing well Pain is controlled Slow recovery Checking INR tomorrow Maintain on Lovenox bridge 05/30/2023: Patient much improved Pain controlled Labs stable INR 1.3 so initiated Lovenox injections to bridge to protect valve No falls Review of Systems General: Fatigue, Malaise Musculoskeletal: leg pain Objective Exam Vital Signs Vital Signs Date Time Temp Pulse Resp B/P (MAP) Pulse Ox O2 Delivery O2 Flow Rate FiO2 06/06/23 20:47 36.6 86 16 121/61 (81) 93 Room Air 06/04/23 07:44 0.00 Capillary Refill : General Appearance: No Apparent Distress, WD/WN, Chronically ill HEENT: PERRL/EOMI, Normal ENT Inspection, Pharynx Normal Neck: Full Range of Motion, Normal Inspection, Non Tender, Supple, Carotid Bruit Respiratory: Chest Non Tender, Lungs Clear, Normal Breath Sounds, No Accessory Muscle Use, No Respiratory Distress Cardiovascular: Regular Rate, Rhythm, No Edema, No Gallop, No JVD, No Murmur, Normal Peripheral Pulses, Other (click) Gastrointestinal: Normal Bowel Sounds, No Organomegaly, No Pulsatile Mass, Non Tender, Soft Back: Normal Inspection, No CVA Tenderness, No Vertebral Tenderness Extremity: Normal Capillary Refill, Normal Inspection, Normal Range of Motion (except left leg), Non Tender, No Calf Tenderness, No Pedal Edema Neurologic/Psychiatric: Alert, Oriented x3, No Motor/Sensory Deficits, Normal Mood/Affect, Abnormal Gait, Motor Weakness (left leg) Skin: Normal Color, Warm/Dry Lymphatic: No Adenopathy Results/Procedures Lab Laboratory Tests 06/06/23 05:52 Patient resulted labs reviewed. FIM Transfers Therapy Code Descriptions/Definitions Functional [place] Measure: 0=Not Assessed/NA 4=Minimal Assistance 1=Total Assistance 5=Supervision or Setup 2=Maximal Assistance 6=Modified [place] 3=Moderate Assistance 7=Complete IndependenceSCALE: Activities may be completed with or without assistive devices. 6-Owpocnscxa-xkzbtkr completes the activity by him/herself with no assistance from a helper. 5-Set-up or Clean-up Assistance-helper sets up or cleans up; patient completes activity. [place] assists only prior to or following the activity. 4-Supervision or Touching Assistance-helper provides verbal cues and/or touching/steadying and/or contact guard assistance as patient completes activi ty. Assistance may be provided throughout the activity or intermittently. 3-Partial/Moderate Assistance-helper does LESS THAN HALF the effort. [place] lifts, holds or supports trunk or limbs, but provides less than half the effort. 2-Substantial/Maximal Assistance-helper does MORE THAN HALF the effort. [place] lifts or holds trunk or limbs and provides more than half the effort. 1-Dhtipnmcn-pbrmsj does ALL the effort. Patient does none of the effort to complete the activity. Or, the assistance of 2 or more helpers is required for the patient to complete the activity. If activity was not attempted, code reason: 7-Patient Refused. 9-Not Applicable-not attempted and the patient did not perform the activity before the current illness, exacerbation or injury. 10-Not Attempted due to Environmental Limitations-(lack of equipment, weather restraints, etc.). 88-Not Attempted due to Medical Conditions or Safety Concerns. Roll Left to Right (QC): 6 Sit to Lying (QC): 3 (Michael with (L) LE and leg r&d engineer) Sit to Stand (QC): 4 Chair/Alc-xy-Kvnuc Xfer(QC): 4 Car Transfer (QC): 3 (Min (A) /c (L) LE assist.) Gait Training Does the Patient Walk?: Yes Distance: 50' Walk 10 feet (QC): 4 Walk 50 ft with 2 Turns(QC): 4 Walk 150 ft (QC): 6 Walking 10ft/uneven surface-QC: 3 (Min (A) /c FWW) Gait Persons Needed: 1 Gait Assistive Device: FWW Wheelchair Training Does the Pt Use a Wheelchair?: No Wheel 50 ft with 2 turns (QC): 9 Wheel 150 ft (QC): 9 Stair Training 1 Step (curb) (QC): 3 (Min (A) /c safety cues for safe technique for FWW use x 2) 4 Steps (QC): 3 (Min (A) /c (B) rails) 12 Steps (QC): 88 (NT due to fatigue) Balance Picking up an Object (QC): 4 (CGA /c education counselor use) ADL-Treatment Eating (QC): 5 Oral Hygiene (QC): 5 Shower/Bathe Self (QC): 4 (SBA. LH sponge used for LB bathing) Upper Body Dressing (QC): 5 Lower Body Dressing (QC): 4 (SBA with AE, min VCs for hip precautions) On/Off Footwear (QC): 1 (to straighten sock on incisional leg) Toileting Hygiene (QC): 4 Toilet Transfer (QC): 4 Assessment/Plan Assessment and Plan Assess & Plan/Chief Complaint Assessment: Left hip fracture Mechanical heart valve Warfarin anticoagulation HTN Post op anemia from blood loss Poor nutrition B12 def maintained on supplement GERD Iron deficiency 05/30/2023: Continue aggressive therapy Pain control Lovenox bridge 05/31/2023: Check INR tomorrow Continue therapy IV iron infusion 3 doses 06/01/2023: IV iron infusion Increase Coumadin 06/02/2023: Monitor INR Monitor pain 06/03/2023: Continue Lovenox bridge Pain control 06/04/2023: DC Lovenox bridge Change Coumadin from 7 mg to 6 mg since she usually takes 5 Mg at home 06/05/2023: Monitor closely Check labs in am 06/06/2023: Supportive care Pain control (1) Femoral neck fracture Status: Acute BIBI HOGUE DO Jun 06, 2023 07:17
[2023-06-06] MEDS: ADVAIR IH SCH ×2 (07:48→19:06)
[2023-06-06 08:00] VITALS: BP 128/60
[2023-06-06] MEDS: SUCRALFATE 1 GM TABLET PO SCH ×2 (08:26→18:21)
[2023-06-06] MEDS: SENNA W/DOCUSATE TABLET PO SCH ×2 (08:26→20:44)
[2023-06-06] MEDS: HYDROcodone/ACETAMINOPHEN 5 MG/325 MG TABLET PO PRN ×2 (08:26→20:44)
[2023-06-06] MEDS: CALCIUM CARBONATE 600 MG +VITAMIN D TABLET PO SCH (08:26)
[2023-06-06] MEDS: CYANOCOBALAMIN 1,000 MCG TABLET PO SCH (08:26)
[2023-06-06] MEDS: DOCUSATE SODIUM 100 MG CAPSULE PO SCH ×2 (08:26→20:44)
--- NOTE | 2023-06-06 11:29 | Occupational Ther Daily Note ---
OT Current Status-Daily Note Subjective Pt agreeable to OT tx. ADL-Treatment Therapy Code Descriptions/Definitions Functional [place] Measure: 0=Not Assessed/NA 4=Minimal Assistance 1=Total Assistance 5=Supervision or Setup 2=Maximal Assistance 6=Modified [place] 3=Moderate Assistance 7=Complete IndependenceSCALE: Activities may be completed with or without assistive devices. 4-Boddpyljgf-lhytpra completes the activity by him/herself with no assistance from a helper. 5-Set-up or Clean-up Assistance-helper sets up or cleans up; patient completes activity. [place] assists only prior to or following the activity. 4-Supervision or Touching Assistance-helper provides verbal cues and/or touching/steadying and/or contact guard assistance as patient completes activity. Assistance may be provided throughout the activity or intermittently. 3-Partial/Moderate Assistance-helper does LESS THAN HALF the effort. [place] lifts, holds or supports trunk or limbs, but provides less than half the effort. 2-Substantial/Maximal Assistance-helper does MORE THAN HALF the effort. [place] lifts or holds trunk or limbs and provides more than half the effort. 0-Mfyfjxvip-aebvui does ALL the effort. Patient does none of the effort to complete the activity. Or, the assistance of 2 or more helpers is required for the patient to complete the activity. If activity was not attempted, code reason: 7-Patient Refused. 9-Not Applicable-not attempted and the patient did not perform the activity before the current illness, exacerbation or injury. 10-Not Attempted due to Environmental Limitations-(lack of equipment, weather restraints, etc.). 88-Not Attempted due to Medical Conditions or Safety Concerns. Eating (QC): 6 Oral Hygiene (QC): 6 Shower/Bathe Self (QC): 6 Upper Body Dressing (QC): 6 Lower Body Dressing (QC): 6 On/Off Footwear: 6 Toileting Hygiene (QC): 6 Toilet Transfer (QC): 6 Other Treatment Pt in bed, transferred supine to sit EOB, IND. Pt used FWW to gather ADL supplies around room and transfer into bathroom, IND. Pt completed ADLs as outlined above, using AE for LB ADLs as needed. Education OT Patient Education: Correct positioning, Modified ADL techniques, Progress toward Goal/Update tx plan, Purpose of tx/functional activities, Rehab process Teaching Recipient: Patient Teaching Methods: Discussion Response to Teaching: Verbalize Understanding BIMS CAM BIMS Expression of Ideas and Wants: Without Difficulty Understanding Verbal Content: Understands Brief Interview/Mental Status: Yes IRF MACIEJ BIMS: IRF MACIEJ BIMS Response (Comments) Value Repitition of Three Words Three 3 Recalls Socks Yes, No Cue Required 2 Recalls Blue Yes, No Cue Required 2 Recalls Bed Yes, No Cue Required 2 Year Correct 3 Month Accurate Within 5 Days 2 Day Correct 1 Total 15 Should Staff Asses. Mental St.: No CAM Mental Status Change/Baseline: 0 Inattention: 0 Disorganized thinkin Altered level of consciousness: 0 OT Short Term Goals Short Term Goals Time Frame: Jun 08, 2023 Shower/bathe self: 5 Upper body dressin Lower body dressin Putting on/taking off footwear: 5 OT Mcfp Goals Mcfp Goals Time Frame: Jun 17, 2023 Acute change in mental status: 0 Inattention: 0 Disorganized thinkin Altered level of consciousness: 0 Eating (QC): 6 (met) Oral Hygiene (QC): 6 (met) Toileting Hygiene (QC): 6 (met) Shower/Bathe Self (QC): 6 (met) Upper Body Dressing (QC): 6 (met) Lower Body Dressing (QC): 6 (met) On/Off Footwear (QC): 6 (met) Additional Goals: 1-Demonstrate ADL Tasks, 2-Verbalize Understanding, 3-ImproveStrength/Jp 1=Demonstrate adherence to instructed precautions during ADL tasks. 2=Patient will verbalize/demonstrate understanding of assistive devices/modifications for ADL. 3=Patient will improve strength/tolerance for activity to enable patient to perform ADL's. OT Education/Plan Problem List/Assessment Assessment: Decreased Activ Tolerance, Decreased UE Strength, Impaired I ADL's Discharge Recommendations Plan/Recommendations: Continue POC Treatment Plan/Plan of Care Patient would benefit from OT for education, treatment and training to promote independence in ADL's, mobility, safety and/or upper extremity function for ADL's. Plan of Care: ADL Retraining, Functional Mobility, Group Exercise/Act as Ind, UE Funct Exercise/Act Treatment Duration: Jun 17, 2023 Frequency: At least 5 of 7 days/Wk (IRF) Estimated Hrs Per Day: 1.5 hours per day Agreement: Yes Rehab Potential: Good Time Start Time: 11:00 Stop Time: 12:00 DATE: Jun 06, 2023 Total Time Billed (hr/min): 60 Billed Treatment Time 1, ADL 4 DELMAR ARAIZA OT Jun 06, 2023 11:29
--- NOTE | 2023-06-06 12:19 | Physical Therapy Daily Note ---
PT Daily Note-Current Subjective Pt sitting in recliner upon arrival. Pt agrees to PT. Pain Location: No Pain Reported Section J - Health Conditions 1. Rarely or not at all 2. Occasionally 3. Frequently 4. Almost constantly 8. Unable to answer Pain Effect on Sleep: 1 Pain Interference with Therapy: 1 Pain Interference w/Day-to-Day: 1 Mental Status Patient Orientation: Person, Place, Situation Transfers SCALE: Activities may be completed with or without assistive devices. 5-Enaoplawwd-swygwqh completes the activity by him/herself with no assistance from a helper. 5-Set-up or Clean-up Assistance-helper sets up or cleans up; patient completes activity. [place] assists only prior to or following the activity. 4-Supervision or Touching Assistance-helper provides verbal cues and/or touching/steadying and/or contact guard assistance as patient completes activity. Assistance may be provided throughout the activity or intermittently. 3-Partial/Moderate Assistance-helper does LESS THAN HALF the effort. [place] lifts, holds or supports trunk or limbs, but provides less than half the effort. 2-Substantial/Maximal Assistance-helper does MORE THAN HALF the effort. [place] lifts or holds trunk or limbs and provides more than half the effort. 1-Nikwvhyun-tybvuy does ALL the effort. Patient does none of the effort to complete the activity. Or, the assistance of 2 or more helpers is required for the patient to complete the activity. If activity was not attempted, code reason: 7-Patient Refused. 9-Not Applicable-not attempted and the patient did not perform the activity before the current illness, exacerbation or injury. 10-Not Attempted due to Environmental Limitations-(lack of equipment, weather restraints, etc.). 88-Not Attempted due to Medical Conditions or Safety Concerns. Roll Left & Right (QC): 6 Sit to Lying (QC): 5 (Uses Leg Trim Master Operator) Lying to Sitting/Side of Bed(Q: 6 Sit to Stand (QC): 6 Chair/Qvq-fy-Kdgiv Xfer(QC): 6 Toilet Transfer (QC): 6 Car Transfer (QC): 6 Weight Bearing Right Lower Extremity: Right Full Weight Bearing Left Lower Extremity: Left Weight Bearing/Tolerated Gait Training Does the Patient Walk?: Yes Distance: 175' Walk 10 feet (QC): 6 Walk 50 ft with 2 Turns(QC): 6 Walk 150 ft (QC): 6 Walking 10ft/uneven surface-QC: 6 Gait Assistive Device: FWW Wheelchair Training Does the Pt Use a Wheelchair?: No Stair Training Stair Training: Handrails/: 2 handrails #of Steps: 12 1 Step (curb) (QC): 6 4 Steps (QC): 6 12 Steps (QC): 6 Stairs: Pattern: Step to Balance Picking up an Object (QC): 6 (uses dictating transcribing machine servicer) Exercises NuStep Minutes: 15 NuStep Workload: 4 Treatments Pt completes QC scoring items listed above as well as uses NuStep & practices using gait belt as Leg Trim Master Operator for home. Pt returns to room at end of tx w/all needs met, call light in hand. Assessment Current Status: Good Progress Pt has gained strength, activity tolerance as well as mobility during time on ARU. PT Casting And Curing Operator Goals Halfway Goals PT Casting And Curing Operator Goals Time Frame: Jun 13, 2023 Roll Left & Right (QC): 6 (/c pillow between knees) Sit to Lying (QC): 6 (/c leg scanning clerk if needed) Lying-Sitting on Side/Bed(QC): 6 (/c leg scanning clerk if needed) Sit to Stand (QC): 6 Chair/Nlc-fm-Lihjs Xfer(QC): 6 (/c FWW) Toilet Transfer (QC): 6 Car Transfer (QC): 5 (set up to move seat back ) Does the Patient Walk: Yes Walk 10 feet (QC): 6 (/c FWW) Walk 50ft with 2 Turns (QC): 6 (/c FWW) Walk 150 ft (QC): 6 (/c FWW) Walking 10ft on Uneven Surface: 6 (/c FWW) 1 Step (curb) (QC): 6 (/c FWW) 4 Steps (QC): 6 (/c railings) 12 Steps (QC): 6 (/c railings) Picking up an Object (QC): 6 (/c dictating transcribing machine servicer) Does the Pt use WC or Scooter?: No Wheel 50 feet with 2 turns (QC: 9 Wheel 150 feet: 9 PT Plan Treatment/Plan Treatment Plan: Continue Plan of Care Treatment Plan: Bed Mobility, Concurrent Therapy, Education, Functional Activity Jp, Functional Strength, Group Therapy, Gait, Safety, Therapeutic Exercise, Transfers Treatment Duration: Jun 13, 2023 Frequency: At least 5 of 7 days/Wk (IRF) Estimated Hrs Per Day: 1.5 hours per day Patient and/or Family Agrees t: Yes Time Time In: 0800 Time Out: 0930 DATE: Jun 06, 2023 Total Billed Treatment Time: 90 Total Billed Treatment 1, GT x2 (30m) & FA x4 (60m) MARIS GRISSOM TRACER POWDER BLENDER Jun 06, 2023 12:19
--- NOTE | 2023-06-06 14:06 | Occupational Ther Daily Note ---
OT Current Status-Daily Note Subjective Pt agreeable to OT tx. ADL-Treatment Therapy Code Descriptions/Definitions Functional [place] Measure: 0=Not Assessed/NA 4=Minimal Assistance 1=Total Assistance 5=Supervision or Setup 2=Maximal Assistance 6=Modified [place] 3=Moderate Assistance 7=Complete IndependenceSCALE: Activities may be completed with or without assistive devices. 6-Ldcylqonhq-qwzplgu completes the activity by him/herself with no assistance from a helper. 5-Set-up or Clean-up Assistance-helper sets up or cleans up; patient completes activity. [place] assists only prior to or following the activity. 4-Supervision or Touching Assistance-helper provides verbal cues and/or touching/steadying and/or contact guard assistance as patient completes activity. Assistance may be provided throughout the activity or intermittently. 3-Partial/Moderate Assistance-helper does LESS THAN HALF the effort. [place] lifts, holds or supports trunk or limbs, but provides less than half the effort. 2-Substantial/Maximal Assistance-helper does MORE THAN HALF the effort. [place] lifts or holds trunk or limbs and provides more than half the effort. 0-Kajypavvj-ruolkw does ALL the effort. Patient does none of the effort to complete the activity. Or, the assistance of 2 or more helpers is required for the patient to complete the activity. If activity was not attempted, code reason: 7-Patient Refused. 9-Not Applicable-not attempted and the patient did not perform the activity before the current illness, exacerbation or injury. 10-Not Attempted due to Environmental Limitations-(lack of equipment, weather restraints, etc.). 88-Not Attempted due to Medical Conditions or Safety Concerns. Oral Hygiene (QC): 6 Toileting Hygiene (QC): 6 Toilet Transfer (QC): 6 Other Treatment Pt in bed, transferred supine to sit EOB, IND. Pt used FWW to complete oral care and toileting, IND. Pt used FWW to perform functional mobility to [facility]. Pt stood at elevated table top, IND for dynamic standing balance. Pt completed UE reaching task, reaching across table top, ~15 mins total. Pt returned to her room, transferring to EOB, then supine independently. Post tx, pt in bed, call light in reach and all needs met. OT Short Term Goals Short Term Goals Time Frame: Jun 08, 2023 Shower/bathe self: 5 Upper body dressin Lower body dressin Putting on/taking off footwear: 5 OT Diesel Pile Hammer Operator Goals Mcc Goals Time Frame: Jun 17, 2023 Acute change in mental status: 0 Inattention: 0 Disorganized thinkin Altered level of consciousness: 0 Eating (QC): 6 (met) Oral Hygiene (QC): 6 (met) Toileting Hygiene (QC): 6 (met) Shower/Bathe Self (QC): 6 (met) Upper Body Dressing (QC): 6 (met) Lower Body Dressing (QC): 6 (met) On/Off Footwear (QC): 6 (met) Additional Goals: 1-Demonstrate ADL Tasks, 2-Verbalize Understanding, 3- ImproveStrength/Jp 1=Demonstrate adherence to instructed precautions during ADL tasks. 2=Patient will verbalize/demonstrate understanding of assistive devices/modifications for ADL. 3=Patient will improve strength/tolerance for activity to enable patient to perform ADL's. OT Education/Plan Problem List/Assessment Assessment: Decreased Activ Tolerance, Decreased UE Strength, Impaired I ADL's Discharge Recommendations Plan/Recommendations: Continue POC Treatment Plan/Plan of Care Patient would benefit from OT for education, treatment and training to promote independence in ADL's, mobility, safety and/or upper extremity function for ADL's. Plan of Care: ADL Retraining, Functional Mobility, Group Exercise/Act as Ind, UE Funct Exercise/Act Treatment Duration: Jun 17, 2023 Frequency: At least 5 of 7 days/Wk (IRF) Estimated Hrs Per Day: 1.5 hours per day Agreement: Yes Rehab Potential: Good Time Start Time: 13:30 Stop Time: 14:00 DATE: Jun 06, 2023 Total Time Billed (hr/min): 30 Billed Treatment Time 1, ADL (15'), FA (15') DELMAR ARAIZA OT Jun 06, 2023 14:06
[2023-06-06] MEDS: warFARin 4 MG (COUMADIN) TAB PO SCH (18:21)
[2023-06-06] MEDS: warFARin 2 MG (COUMADIN) TAB PO SCH (18:21)
[2023-06-06] MEDS: MONTELUKAST 10 MG TABLET PO SCH (20:44)
[2023-06-06] MEDS: ALPRAZolam 1 MG TABLET PO SCH (20:44)
[2023-06-06 20:47] VITALS: BP 121/61
[2023-06-07] MEDS: CATHETER FLUSH 10 ML SYR IVP SCH ×3 (06:18→20:50)
[2023-06-07] MEDS: ADVAIR IH SCH (07:32)
[2023-06-07] MEDS: ALBUTEROL SULFATE 4 MG PO SCH ×2 (07:32→11:35)
[2023-06-07 07:35] VITALS: BP 139/69
[2023-06-07] MEDS ORDERED: FLUTICASONE/VILANTEROL 100/25 MCG (14 DOSES) IH SCH (08:00)
--- NOTE | 2023-06-07 08:51 | Occupational Ther Daily Note ---
OT Current Status-Daily Note Subjective Pt agreeable to OT tx. ADL-Treatment Therapy Code Descriptions/Definitions Functional [place] Measure: 0=Not Assessed/NA 4=Minimal Assistance 1=Total Assistance 5=Supervision or Setup 2=Maximal Assistance 6=Modified [place] 3=Moderate Assistance 7=Complete IndependenceSCALE: Activities may be completed with or without assistive devices. 5-Elojiicpre-jxrfxnq completes the activity by him/herself with no assistance from a helper. 5-Set-up or Clean-up Assistance-helper sets up or cleans up; patient completes activity. [place] assists only prior to or following the activity. 4-Supervision or Touching Assistance-helper provides verbal cues and/or touching/steadying and/or contact guard assistance as patient completes activity. Assistance may be provided throughout the activity or intermittently. 3-Partial/Moderate Assistance-helper does LESS THAN HALF the effort. [place] lifts, holds or supports trunk or limbs, but provides less than half the effort. 2-Substantial/Maximal Assistance-helper does MORE THAN HALF the effort. [place] lifts or holds trunk or limbs and provides more than half the effort. 2-Gqrrlegxd-lsrcrc does ALL the effort. Patient does none of the effort to complete the activity. Or, the assistance of 2 or more helpers is required for the patient to complete the activity. If activity was not attempted, code reason: 7-Patient Refused. 9-Not Applicable-not attempted and the patient did not perform the activity before the current illness, exacerbation or injury. 10-Not Attempted due to Environmental Limitations-(lack of equipment, weather restraints, etc.). 88-Not Attempted due to Medical Conditions or Safety Concerns. Other Treatment [id number]: Pt in chair in room, agreeable to OT Tx. Pt declined need to shower at this time. Pt used FWW to perform functional mobility to therapy gym. OT focused on increasing BUE Strength and activity tolerance. Pt completed arm bike, 12 mins, 15 watt resistance, 1 rest break. Pt used FWW to return to her room, IND. [id number]: OT/PT cotreat due to skill of 2 clinicians required which a vocational rehabilitation supervisor could not perform in order to coordinate UE/LEs, decrease fall risk, focus on higher level balance challenges, and for family education with pt's Attila [place]. OT focused on UE placement, cues for sequencing and safety and ADLs, PT focused on LE placement, gross overall movement, transfers and mobility. Pt's SO educated on pt's current level of functional with ADLs and functional mobility. Pt used FWW to perform functional/transfers including car transfer, uneven surface, stairs, sit to/from stand from surface with/without arm rests, etc. Pt and SO state no further concerns with ADLS at this time. Post tx, pt in therapy gym with PT, all needs met. Education OT Patient Education: Correct positioning, Energy conservation, Modified ADL techniques, Progress toward Goal/Update tx plan, Purpose of tx/functional activities, Rehab process Teaching Recipient: Patient Teaching Methods: Discussion Response to Teaching: Verbalize Understanding OT Short Term Goals Short Term Goals Time Frame: Jun 08, 2023 Shower/bathe self: 5 Upper body dressin Lower body dressin Putting on/taking off footwear: 5 OT Half-Way Goals Half-Way Goals Time Frame: Jun 17, 2023 Acute change in mental status: 0 Inattention: 0 Disorganized thinkin Altered level of consciousness: 0 Eating (QC): 6 (met) Oral Hygiene (QC): 6 (met) Toileting Hygiene (QC): 6 (met) Shower/Bathe Self (QC): 6 (met) Upper Body Dressing (QC): 6 (met) Lower Body Dressing (QC): 6 (met) On/Off Footwear (QC): 6 (met) Additional Goals: 1-Demonstrate ADL Tasks, 2-Verbalize Understanding, 3- ImproveStrength/Jp 1=Demonstrate adherence to instructed precautions during ADL tasks. 2=Patient will verbalize/demonstrate understanding of assistive devices/modifications for ADL. 3=Patient will improve strength/tolerance for activity to enable patient to perform ADL's. OT Education/Plan Problem List/Assessment Assessment: Decreased Activ Tolerance Discharge Recommendations Plan/Recommendations: Continue POC Treatment Plan/Plan of Care Patient would benefit from OT for education, treatment and training to promote independence in ADL's, mobility, safety and/or upper extremity function for ADL's. Plan of Care: ADL Retraining, Functional Mobility, Group Exercise/Act as Ind, UE Funct Exercise/Act Treatment Duration: Jun 17, 2023 Frequency: At least 5 of 7 days/Wk (IRF) Estimated Hrs Per Day: 1.5 hours per day Agreement: Yes Rehab Potential: Good Time Start Time: 08:30 Stop Time: 09:30 DATE: Jun 07, 2023 Total Time Billed (hr/min): 60 Billed Treatment Time cotreat x30' 1, EX 2(30'), FA 2(30') DELMAR ARAIZA OT Jun 07, 2023 08:51
[2023-06-07] MEDS: CYANOCOBALAMIN 1,000 MCG TABLET PO SCH (08:59)
[2023-06-07] MEDS: SUCRALFATE 1 GM TABLET PO SCH ×2 (08:59→17:57)
[2023-06-07] MEDS: SENNA W/DOCUSATE TABLET PO SCH ×2 (08:59→20:32)
[2023-06-07] MEDS: DOCUSATE SODIUM 100 MG CAPSULE PO SCH ×2 (08:59→20:45)
[2023-06-07] MEDS: CALCIUM CARBONATE 600 MG +VITAMIN D TABLET PO SCH (08:59)
[2023-06-07] MEDS: HYDROcodone/ACETAMINOPHEN 5 MG/325 MG TABLET PO PRN ×2 (09:00→20:45)
--- NOTE | 2023-06-07 10:49 | Occupational Ther Daily Note ---
OT Current Status-Daily Note Subjective Pt received lying supine in bed with PT and spouse at bedside. Pt very pleasant and willing to participate in therapy. Pain Numeric Pain Scale: 0-No Pain Location: No Pain Reported Mental Status/Objective Patient Orientation: Person, Place, Time, Situation Attachments: IV ADL-Treatment Therapy Code Descriptions/Definitions Functional [place] Measure: 0=Not Assessed/NA 4=Minimal Assistance 1=Total Assistance 5=Supervision or Setup 2=Maximal Assistance 6=Modified [place] 3=Moderate Assistance 7=Complete IndependenceSCALE: Activities may be completed with or without assistive devices. 0-Vdriegvivj-aagmhon completes the activity by him/herself with no assistance from a helper. 5-Set-up or Clean-up Assistance-helper sets up or cleans up; patient completes activity. [place] assists only prior to or following the activity. 4-Supervision or Touching Assistance-helper provides verbal cues and/or touching/steadying and/or contact guard assistance as patient completes activity. Assistance may be provided throughout the activity or intermittently. 3-Partial/Moderate Assistance-helper does LESS THAN HALF the effort. [place] lifts, holds or supports trunk or limbs, but provides less than half the effort. 2-Substantial/Maximal Assistance-helper does MORE THAN HALF the effort. [place] lifts or holds trunk or limbs and provides more than half the effort. 8-Feuillqmd-iiupll does ALL the effort. Patient does none of the effort to complete the activity. Or, the assistance of 2 or more helpers is required for the patient to complete the activity. If activity was not attempted, code reason: 7-Patient Refused. 9-Not Applicable-not attempted and the patient did not perform the activity before the current illness, exacerbation or injury. 10-Not Attempted due to Environmental Limitations-(lack of equipment, weather restraints, etc.). 88-Not Attempted due to Medical Conditions or Safety Concerns. Upper Body Dressing (QC): 6 (to don/doff jacket) Other Treatment PT/OT co-treat completed due to the need for two skilled therapist in order to c omplete high level activities with optimal safety. OT focuses on activity tolerance, functional balance, functional strength and safety awareness. Please refer to PT notes for detailed explanation of PT treatment and POC. Pt completed bed mobility independently with no cues for safety. Pt completed functional mobility for ~30ft with FWW and independence, requiring no cues for safety. Pt stood and completed dynamic standing activity, reaching outside base of support for ~20mins with independence, requiring no cues for safety or rest breaks. Education OT Patient Education: Correct positioning, Energy conservation, Home exercise program, Instructions to caregiver, Modified ADL techniques, Progress toward Goal/Update tx plan, Purpose of tx/functional activities, Reviewed precautions, Rehab process, Safety issues, Transfer techniques, Use of adapted equipment Teaching Recipient: Patient, Family Teaching Methods: Demonstration, Discussion Response to Teaching: Verbalize Understanding, Return Demonstration BIMS CAM BIMS Expression of Ideas and Wants: Without Difficulty Understanding Verbal Content: Understands Brief Interview/Mental Status: Yes IRF MACIEJ BIMS: IRF MACIEJ BIMS Response (Comments) Value Repitition of Three Words Three 3 Recalls Socks Yes, No Cue Required 2 Recalls Blue Yes, No Cue Required 2 Recalls Bed Yes, No Cue Required 2 Year Correct 3 Month Accurate Within 5 Days 2 Day Correct 1 Total 15 Patient Normally Able to Recal: Current Session, Location of own room, Staff Names and faces, That he/she in a hsp Should Staff Asses. Mental St.: No Memory/Recall Ability: Current Season, Location of Own Room, Staff Names and Faces, That He/She in Hospitall OT Short Term Goals Short Term Goals Time Frame: Jun 08, 2023 Shower/bathe self: 5 Upper body dressin Lower body dressin Putting on/taking off footwear: 5 OT Deep Submergence Vehicle Crewmember Goals Care Home Goals Time Frame: Jun 17, 2023 Acute change in mental status: 0 Inattention: 0 Disorganized thinkin Altered level of consciousness: 0 Eating (QC): 6 (met) Oral Hygiene (QC): 6 (met) Toileting Hygiene (QC): 6 (met) Shower/Bathe Self (QC): 6 (met) Upper Body Dressing (QC): 6 (met) Lower Body Dressing (QC): 6 (met) On/Off Footwear (QC): 6 (met) Additional Goals: 1-Demonstrate ADL Tasks, 2-Verbalize Understanding, 3-ImproveStrength/Jp 1=Demonstrate adherence to instructed precautions during ADL tasks. 2=Patient will verbalize/demonstrate understanding of assistive devices/modifications for ADL. 3=Patient will improve strength/tolerance for activity to enable patient to perform ADL's. OT Education/Plan Problem List/Assessment Assessment: Decreased Activ Tolerance, Decreased Safety Aware, Decreased UE Strength, Impaired Coordination, Impaired Funct Balance, Impaired I ADL's, Impaired Self-Care Skills Discharge Recommendations Plan/Recommendations: Continue POC Treatment Plan/Plan of Care Treatment,Training & Education: Yes Patient would benefit from OT for education, treatment and training to promote independence in ADL's, mobility, safety and/or upper extremity function for ADL's. Plan of Care: ADL Retraining, Functional Mobility, Group Exercise/Act as Ind, UE Funct Exercise/Act Treatment Duration: Jun 17, 2023 Frequency: At least 5 of 7 days/Wk (IRF) Estimated Hrs Per Day: 1.5 hours per day Agreement: Yes Rehab Potential: Good Time Start Time: 10:10 (PT/OT cotreat [id number]) Stop Time: 10:40 DATE: Jun 07, 2023 Total Time Billed (hr/min): 30 Billed Treatment Time 1, FA 2 Jaimee Keys OTR/L Jun 07, 2023 10:49
--- NOTE | 2023-06-07 10:50 | PM&R Progress Note ---
Subjective HPI/CC On Admission Date Seen by Provider: Jun 07, 2023 Time Seen by Provider: 12:30 Subjective/Events-last exam 06/07/2023: Patient doing pretty well Pain is controlled Discharge is planned tomorrow 06/06/2023: Patient doing well No pain is reported She is walking Ambulating really well INR stable 06/05/2023: Doing well at bedside No falls Pain control Reviewed meds and labs 06/04/2023: Patient doing well Pain is pretty well-controlled INR 2.5 so we will DC Lovenox bridge IV iron infusion tolerated 06/03/2023: Patient doing much better Pain is controlled INR 1.8 still on Lovenox bridge Sleeping well at night 06/02/2023: No major issues No pain reported No falls INR will be monitored 06/01/2023: Patient dramatically improved Ambulating very well INR 1.3 so we will increase Coumadin and maintain Lovenox bridge No other falls Working on puzzles with OT 05/31/2023: Patient doing well Pain is controlled Slow recovery Checking INR tomorrow Maintain on Lovenox bridge 05/30/2023: Patient much improved Pain controlled Labs stable INR 1.3 so initiated Lovenox injections to bridge to protect valve No falls Review of Systems General: Fatigue Objective Exam Vital Signs Vital Signs Date Time Temp Pulse Resp B/P (MAP) Pulse Ox O2 Delivery O2 Flow Rate FiO2 06/07/23 20:19 35.8 74 20 99/53 (68) 95 Room Air 06/04/23 07:44 0.00 Capillary Refill : General Appearance: No Apparent Distress, WD/WN, Chronically ill HEENT: PERRL/EOMI, Normal ENT Inspection, Pharynx Normal Neck: Full Range of Motion, Normal Inspection, Non Tender, Supple, Carotid Bruit Respiratory: Chest Non Tender, Lungs Clear, Normal Breath Sounds, No Accessory Muscle Use, No Respiratory Distress Cardiovascular: Regular Rate, Rhythm, No Edema, No Gallop, No JVD, No Murmur, Normal Peripheral Pulses, Other (click) Gastrointestinal: Normal Bowel Sounds, No Organomegaly, No Pulsatile Mass, Non Tender, Soft Back: Normal Inspection, No CVA Tenderness, No Vertebral Tenderness Extremity: Normal Capillary Refill, Normal Inspection, Normal Range of Motion (except left leg), Non Tender, No Calf Tenderness, No Pedal Edema Neurologic/Psychiatric: Alert, Oriented x3, No Motor/Sensory Deficits, Normal Mood/Affect, Abnormal Gait, Motor Weakness (left leg) Skin: Normal Color, Warm/Dry Lymphatic: No Adenopathy Results/Procedures Lab Patient resulted labs reviewed. FIM Transfers Therapy Code Descriptions/Definitions Functional [place] Measure: 0=Not Assessed/NA 4=Minimal Assistance 1=Total Assistance 5=Supervision or Setup 2=Maximal Assistance 6=Modified [place] 3=Moderate Assistance 7=Complete IndependenceSCALE: Activities may be completed with or without assistive devices. 5-Uxqpzojbwa-xwbjmsw completes the activity by him/herself with no assistance from a helper. 5-Set-up or Clean-up Assistance-helper sets up or cleans up; patient completes activity. [place] assists only prior to or following the activity. 4-Supervision or Touching Assistance-helper provides verbal cues and/or touching/steadying and/or contact guard assistance as patient completes activity. Assistance may be provided throughout the activity or intermittently. 3-Partial/Moderate Assistance-helper does LESS THAN HALF the effort. [place] lifts, holds or supports trunk or limbs, but provides less than half the effort. 2-Substantial/Maximal Assistance-helper does MORE THAN HALF the effort. [place] lifts or holds trunk or limbs and provides more than half the effort. 4-Tcjuakegc-xgcock does ALL the effort. Patient does none of the effort to complete the activity. Or, the assistance of 2 or more helpers is required for the patient to complete the activity. If activity was not attempted, code reason: 7-Patient Refused. 9-Not Applicable-not attempted and the patient did not perform the activity before the current illness, exacerbation or injury. 10-Not Attempted due to Environmental Limitations-(lack of equipment, weather restraints, etc.). 88-Not Attempted due to Medical Conditions or Safety Concerns. Roll Left to Right (QC): 6 Sit to Lying (QC): 5 (Uses Leg Hydraulic Jack Operator) Sit to Stand (QC): 6 Chair/Ldx-pq-Qoydb Xfer(QC): 6 Car Transfer (QC): 6 Gait Training Does the Patient Walk?: Yes Distance: 175' Walk 10 feet (QC): 6 Walk 50 ft with 2 Turns(QC): 6 Walk 150 ft (QC): 6 Walking 10ft/uneven surface-QC: 6 Gait Persons Needed: 1 Gait Assistive Device: FWW Wheelchair Training Does the Pt Use a Wheelchair?: No Wheel 50 ft with 2 turns (QC): 9 Wheel 150 ft (QC): 9 Stair Training Stair Training: Handrails/: 2 handrails #of Steps: 12 1 Step (curb) (QC): 6 4 Steps (QC): 6 12 Steps (QC): 6 Stairs: Pattern: Step to Balance Picking up an Object (QC): 6 (uses transfer specialist) ADL-Treatment Eating (QC): 6 Oral Hygiene (QC): 6 Shower/Bathe Self (QC): 6 Upper Body Dressing (QC): 6 Lower Body Dressing (QC): 6 On/Off Footwear (QC): 6 Toileting Hygiene (QC): 6 Toilet Transfer (QC): 6 Assessment/Plan Assessment and Plan Assess & Plan/Chief Complaint Assessment: Left hip fracture Mechanical heart valve Warfarin anticoagulation HTN Post op anemia from blood loss Poor nutrition B12 def maintained on supplement GERD Iron deficiency 05/30/2023: Continue aggressive therapy Pain control Lovenox bridge 05/31/2023: Check INR tomorrow Continue therapy IV iron infusion 3 doses 06/01/2023: IV iron infusion Increase Coumadin 06/02/2023: Monitor INR Monitor pain 06/03/2023: Continue Lovenox bridge Pain control 06/04/2023: LISHA Lovenox bridge Change Coumadin from 7 mg to 6 mg since she usually takes 5 Mg at home 06/05/2023: Monitor closely Check labs in am 06/06/2023: Supportive care Pain control 06/07/2023: Supportive care Discharge is planned (1) Femoral neck fracture Status: Acute BIBI HOGUE DO Jun 07, 2023 10:50
--- NOTE | 2023-06-07 12:05 | Physical Therapy Daily Note ---
PT Daily Note-Current Subjective Pt sitting in chair in room w/Family present for Family Training upon arrival. Pt agrees to PT/OT co-treat. Pain Location: No Pain Reported Section J - Health Conditions 1. Rarely or not at all 2. Occasionally 3. Frequently 4. Almost constantly 8. Unable to answer Pain Effect on Sleep: 1 Pain Interference with Therapy: 1 Pain Interference w/Day-to-Day: 1 Mental Status Patient Orientation: Person, Place, Time, Situation Transfers SCALE: Activities may be completed with or without assistive devices. 5-Ednftrniqi-jxgnqcb completes the activity by him/herself with no assistance from a helper. 5-Set-up or Clean-up Assistance-helper sets up or cleans up; patient completes activity. Bertha assists only prior to or following the activity. 4-Supervision or Touching Assistance-helper provides verbal cues and/or touching/steadying and/or contact guard assistance as patient completes activity. Assistance may be provided throughout the activity or intermittently. 3-Partial/Moderate Assistance-helper does LESS THAN HALF the effort. Bertha lifts, holds or supports trunk or limbs, but provides less than half the effort. 2-Substantial/Maximal Assistance-helper does MORE THAN HALF the effort. Bertha lifts or holds trunk or limbs and provides more than half the effort. 9-Ldtolgihf-ykmjvn does ALL the effort. Patient does none of the effort to complete the activity. Or, the assistance of 2 or more helpers is required for the patient to complete the activity. If activity was not attempted, code reason: 7-Patient Refused. 9-Not Applicable-not attempted and the patient did not perform the activity before the current illness, exacerbation or injury. 10-Not Attempted due to Environmental Limitations-(lack of equipment, weather restraints, etc.). 88-Not Attempted due to Medical Conditions or Safety Concerns. Roll Left & Right (QC): 6 Sit to Lying (QC): 6 Lying to Sitting/Side of Bed(Q: 6 Sit to Stand (QC): 6 Chair/Nsa-hp-Ptbvy Xfer(QC): 6 Toilet Transfer (QC): 6 Car Transfer (QC): 6 Weight Bearing Right Lower Extremity: Right Full Weight Bearing Left Lower Extremity: Left Weight Bearing/Tolerated Gait Training Does the Patient Walk?: Yes Distance: 520' Walk 10 feet (QC): 6 Walk 50 ft with 2 Turns(QC): 6 Walk 150 ft (QC): 6 Walking 10ft/uneven surface-QC: 6 Gait Assistive Device: FWW Wheelchair Training Does the Pt Use a Wheelchair?: No Wheel 50 ft with 2 turns (QC): 9 Wheel 150 ft (QC): 9 Stair Training Stair Training: Handrails/: 2 handrails #of Steps: 12 1 Step (curb) (QC): 6 4 Steps (QC): 6 12 Steps (QC): 6 Stairs: Pattern: Step to Balance Picking up an Object (QC): 6 Special Test Comments Pt uses manager marketing Exercises NuStep Minutes: 15 NuStep Workload: 4 Treatments Pt repeated QC scoring items listed above 2/2 improved ability to achieve higher scores because of gained strength. Pt also uses NuStep as well as completes dynamic Standing Balance Activity at table in Therapy Commons area during co- treat w/OT .PT/OT co-treat completed due to the need for two skilled therapist in order to complete high level activities with optimal safety. OT focuses on activity tolerance, functional balance, functional strength and safety awareness. PT focuses on Dynamic Standing Balance, activity tolerance, and strength. Pt completed bed mobility independently with no cues for safety. Pt completed functional mobility for ~30ft with FWW and independence, requiring no cues for safety. Pt stood and completed dynamic standing activity, reaching outside base of support for ~20mins with independence, requiring no cues for safety or rest breaks. SEW ON OPERATOR departs and OT continues w/pt. Assessment Current Status: Good Progress Pt roxanna. tx very well. PT Utility Pipe Layer Goals Skilled Nursing Goals PT Skilled Nursing Goals Time Frame: Jun 13, 2023 Roll Left & Right (QC): 6 (/c pillow between knees) Sit to Lying (QC): 6 (/c leg log pond worker if needed) Lying-Sitting on Side/Bed(QC): 6 (/c leg log pond worker if needed) Sit to Stand (QC): 6 Chair/Uat-tx-Gwprq Xfer(QC): 6 (/c FWW) Toilet Transfer (QC): 6 Car Transfer (QC): 5 (set up to move seat back ) Does the Patient Walk: Yes Walk 10 feet (QC): 6 (/c FWW) Walk 50ft with 2 Turns (QC): 6 (/c FWW) Walk 150 ft (QC): 6 (/c FWW) Walking 10ft on Uneven Surface: 6 (/c FWW) 1 Step (curb) (QC): 6 (/c FWW) 4 Steps (QC): 6 (/c railings) 12 Steps (QC): 6 (/c railings) Picking up an Object (QC): 6 (/c manager marketing) Does the Pt use WC or Scooter?: No Wheel 50 feet with 2 turns (QC: 9 Wheel 150 feet: 9 PT Plan Treatment/Plan Treatment Plan: Continue Plan of Care Treatment Plan: Bed Mobility, Concurrent Therapy, Education, Functional Activity Jp, Functional Strength, Group Therapy, Gait, Safety, Therapeutic Exercise, Transfers Treatment Duration: Jun 13, 2023 Frequency: At least 5 of 7 days/Wk (IRF) Estimated Hrs Per Day: 1.5 hours per day Patient and/or Family Agrees t: Yes Time Time In: 0900 Time Out: 1030 DATE: Jun 07, 2023 Total Billed Treatment Time: 90 Total Billed Treatment Co-treat w/OT 9464-0211 (30m) & [id number] (20m), Ind Tx ([id number] for 40m) 1, FA x2 (30m), GT x2 (30m) & EX x2 (30m) MARIS GRISSOM SEW ON OPERATOR Jun 07, 2023 12:05
[2023-06-07] MEDS: warFARin 2 MG (COUMADIN) TAB PO SCH (17:56)
[2023-06-07] MEDS: warFARin 4 MG (COUMADIN) TAB PO SCH (17:56)
[2023-06-07 20:19] VITALS: BP 99/53
[2023-06-07] MEDS: ALPRAZolam 1 MG TABLET PO SCH (20:45)
[2023-06-07] MEDS: MONTELUKAST 10 MG TABLET PO SCH (20:45)
[2023-06-08] MEDS: ADVAIR IH SCH ×2 (00:23→07:24)
[2023-06-08] MEDS ORDERED: ACHD5005 PO (04:21)
[2023-06-08] MEDS ORDERED: ALPR1TAB7 PO (04:21)
[2023-06-08] MEDS ORDERED: MONT-40 PO (04:21)
--- NOTE | 2023-06-08 04:22 | D/C HH Face to Face Order ---
D/C Face to Face Orders Reconcile Patient Problems Problems Reviewed?: Yes Instructions for Patient Via [facility], Patient Instructions/FollowUp: pcp Dr Alfaro Physician to follow Patient: Dominic Discharge Diet for Home: No Restrictions Patient Problems: Hip fx Patient Data-Allergies,Ht & Wt Patient Allergies: Coded Allergies: No Known Drug Allergies (Unverified , 05/22/23) Home Health Need/Face to Face Date of Face to Face: Jun 08, 2023 Clinical Findings: Generalized weakness and fatigue, Pain with ambulation I have seen Pt gjgs-ug-jxqs: Yes Discharged To: Home Diagnosis/Conditions: hip fx Patient is Homebound due to: Pedro fall risk due to instabilty, Muscle weakness Homebound Status Due to the above stated illness, injury or surgical procedure (medical condition or diagnosis) and associated clinical findings, the patient is homebound because of his/her inability to leave home except with aid of a supportive device and/or person AND leaving the home requires a considerable and taxing effort or is medically contraindicated. Pt req the following assistanc: Walker Home Health Nursing Orders Home Health Services Order: Nursing Services, Certified Physician Assistant-Evaluate & Treat, Physical Therapy-Evaluate & Treat Home Health Infusion Therapy Line Start Date: Jun 01, 2023 Certify Stmt I certify that this patient is under my care and that I, a nurse practitioner or a physician; a electrician station assistant working with me, had a face to face encounter that - meets the physician face to face encounter requirements with this patient as dated. BIBI HOGUE DO Jun 08, 2023 04:22
--- NOTE | 2023-06-08 04:22 | Discharge Summary ---
Diagnosis/Chief Complaint Date of Admission May 29, 2023 at 09:51 Date of Discharge Discharge Date: Jun 08, 2023 Discharge Diagnosis Assessment: Left hip fracture Mechanical heart valve Warfarin anticoagulation HTN Post op anemia from blood loss Poor nutrition B12 def maintained on supplement GERD Iron deficiency 05/30/2023: Continue aggressive therapy Pain control Lovenox bridge 05/31/2023: Check INR tomorrow Continue therapy IV iron infusion 3 doses 06/01/2023: IV iron infusion Increase Coumadin 06/02/2023: Monitor INR Monitor pain 06/03/2023: Continue Lovenox bridge Pain control 06/04/2023: DC Lovenox bridge Change Coumadin from 7 mg to 6 mg since she usually takes 5 Mg at home 06/05/2023: Monitor closely Check labs in am 06/06/2023: Supportive care Pain control 06/07/2023: Supportive care Discharge is planned (1) Femoral neck fracture Status: Acute Discharge Summary Discharge Physical Examination Allergies: Coded Allergies: No Known Drug Allergies (Unverified , 05/22/23) Vitals & I&Os Vital Signs Date Time Temp Pulse Resp B/P (MAP) Pulse Ox O2 Delivery O2 Flow Rate FiO2 06/08/23 12:50 36.4 78 16 118/52 93 Room Air 06/04/23 07:44 0.00 General Appearance: Alert, Oriented X3, Cooperative Respiratory: Clear to Auscultation Cardiovascular: Regular Rate Psych/Mental Status: Mental Status NL Hospital Course Was the Problem List Reviewed?: Yes Patient had an uneventful hospital course after she was admitted following debility from hip fracture. Patient required warfarin management and multiple medication doses changes until therapeutic and discontinued Lovenox bridge. She participated in therapy and was able to regain most of her baseline function with use of a walker. Labs remained stable. Vitals remained stable. Singulair was added to her regimen due to her chronic cough which helps. Overall she was deemed stable for discharge. Labs (last 24 hrs) Laboratory Tests 05/30/23 05:38: White Blood Count 6.8, Red Blood Count 2.94L, Hemoglobin 9.7L, Hematocrit 29L, Mean Corpuscular Volume 97, Mean Corpuscular Hemoglobin 33, Mean Corpuscular Hemoglobin Concent 34, Red Cell Distribution Width 12.4, Platelet Count 260, Mean Platelet Volume 10.2, Immature Granulocyte % (Auto) 1, Neutrophils (%) (Auto) 60, Lymphocytes (%) (Auto) 20, Monocytes (%) (Auto) 10, Eosinophils (%) (Auto) 8, Basophils (%) (Auto) 1, Neutrophils # (Auto) 4.1, Lymphocytes # (Auto) 1.3, Monocytes # (Auto) 0.7, Eosinophils # (Auto) 0.6H, Basophils # (Auto) 0.1, Immature Granulocyte # (Auto) 0.1, Prothrombin Time 16.4H, INR Comment 1.3, Sodium Level 137, Potassium Level 4.1, Chloride Level 100, Carbon Dioxide Level 32, Anion Gap 5, Blood Urea Nitrogen 15, Creatinine 0.78, Estimat Glomerular Filtration Rate 74, BUN/Creatinine Ratio 19, Glucose Level 95, Calcium Level 8.5, Corrected Calcium 9.6, Iron Level 37, Total Bilirubin 0.3, Aspartate Amino Transf (AST/SGOT) 29, Alanine Aminotransferase (ALT/SGPT) 13, Alkaline Phosphatase 41, Total Protein 5.0L, Albumin 2.6L, Vitamin B12 Level >2000H 06/01/23 05:53: Prothrombin Time 16.9H, INR Comment 1.3 06/03/23 06:55: Prothrombin Time 21.6H, INR Comment 1.8H 06/04/23 06:55: Prothrombin Time 28.1H, INR Comment 2.5H 06/06/23 05:52: White Blood Count 6.5, Red Blood Count 2.72L, Hemoglobin 8.8L, Hematocrit 27L, Mean Corpuscular Volume 99, Mean Corpuscular Hemoglobin 32, Mean Corpuscular Hemoglobin Concent 33, Red Cell Distribution Width 12.7, Platelet Count 285, Mean Platelet Volume 10.1, Immature Granulocyte % (Auto) 0, Neutrophils (%) (Auto) 65, Lymphocytes (%) (Auto) 20, Monocytes (%) (Auto) 8, Eosinophils (%) (Auto) 6, Basophils (%) (Auto) 1, Neutrophils # (Auto) 4.2, Lymphocytes # (Auto) 1.3, Monocytes # (Auto) 0.5, Eosinophils # (Auto) 0.4H, Basophils # (Auto) 0.1, Immature Granulocyte # (Auto) 0.0, Prothrombin Time 25.2H, INR Comment 2.2H, Sodium Level 140, Potassium Level 4.7, Chloride Level 106, Carbon Dioxide Level 27, Anion Gap 7, Blood Urea Nitrogen 11, Creatinine 0.78, Estimat Glomerular Filtration Rate 74, BUN/Creatinine Ratio 14, Glucose Level 97, Calcium Level 8.9, Corrected Calcium 9.8, Total Bilirubin 0.3, Aspartate Amino Transf (AST/SGOT) 59H, Alanine Aminotransferase (ALT/SGPT) 51, Alkaline Phosphatase 51, Total Protein 5.3L, Albumin 2.9L Pending Labs Laboratory Tests 05/30/23 05:38: White Blood Count 6.8, Red Blood Count 2.94, Hemoglobin 9.7, Hematocrit 29, Mean Corpuscular Volume 97, Mean Corpuscular Hemoglobin 33, Mean Corpuscular Hemoglobin Concent 34, Red Cell Distribution Width 12.4, Platelet Count 260, Mean Platelet Volume 10.2, Immature Granulocyte % (Auto) 1, Neutrophils (%) (Auto) 60, Lymphocytes (%) (Auto) 20, Monocytes (%) (Auto) 10, Eosinophils (%) (Auto) 8, Basophils (%) (Auto) 1, Neutrophils # (Auto) 4.1, Lymphocytes # (Auto) 1.3, Monocytes # (Auto) 0.7, Eosinophils # (Auto) 0.6, Basophils # (Auto) 0.1, Immature Granulocyte # (Auto) 0.1, Prothrombin Time 16.4, INR Comment 1.3, Sodium Level 137, Potassium Level 4.1, Chloride Level 100, Carbon Dioxide Level 32, Anion Gap 5, Blood Urea Nitrogen 15, Creatinine 0.78, Estimat Glomerular Filtration Rate 74, BUN/Creatinine Ratio 19, Glucose Level 95, Calcium Level 8.5, Corrected Calcium 9.6, Iron Level 37, Total Bilirubin 0.3, Aspartate Amino Transf (AST/SGOT) 29, Alanine Aminotransferase (ALT/SGPT) 13, Alkaline Phosphatase 41, Total Protein 5.0, Albumin 2.6, Vitamin B12 Level >2000 06/01/23 05:53: Prothrombin Time 16.9, INR Comment 1.3 06/03/23 06:55: Prothrombin Time 21.6, INR Comment 1.8 06/04/23 06:55: Prothrombin Time 28.1, INR Comment 2.5 06/06/23 05:52: White Blood Count 6.5, Red Blood Count 2.72, Hemoglobin 8.8, Hematocrit 27, Mean Corpuscular Volume 99, Mean Corpuscular Hemoglobin 32, Mean Corpuscular Hemoglobin Concent 33, Red Cell Distribution Width 12.7, Platelet Count 285, Mean Platelet Volume 10.1, Immature Granulocyte % (Auto) 0, Neutrophils (%) (Auto) 65, Lymphocytes (%) (Auto) 20, Monocytes (%) (Auto) 8, Eosinophils (%) (Auto) 6, Basophils (%) (Auto) 1, Neutrophils # (Auto) 4.2, Lymphocytes # (Auto) 1.3, Monocytes # (Auto) 0.5, Eosinophils # (Auto) 0.4, Basophils # (Auto) 0.1, Immature Granulocyte # (Auto) 0.0, Prothrombin Time 25.2, INR Comment 2.2, Sodium Level 140, Potassium Level 4.7, Chloride Level 106, Carbon Dioxide Level 27, Anion Gap 7, Blood Urea Nitrogen 11, Creatinine 0.78, Estimat Glomerular Filtration Rate 74, BUN/Creatinine Ratio 14, Glucose Level 97, Calcium Level 8.9, Corrected Calcium 9.8, Total Bilirubin 0.3, Aspartate Amino Transf (AST/ SGOT) 59, Alanine Aminotransferase (ALT/SGPT) 51, Alkaline Phosphatase 51, Total Protein 5.3, Albumin 2.9 Discharge Home Medications: Active Scripts Active Montelukast Sodium 10 Mg Tablet 10 Mg PO HS Hydrocodone-Acetamin 5-325 mg (Hydrocodone/Acetaminophen) 5 Mg-325 Mg Tablet 1-2 Tab PO Q4H PRN Alprazolam 1 Mg Tablet 1 Mg PO HS Reported [Prevagen] 10 Mg PO DAILY Ventolin Hfa (Albuterol Sulfate) 1 Puff Puff 1 Puff INH Q6H PRN 1 PUFF = 90 MCG Albuterol Sulfate 4 Mg Tablet 4 Mg PO DAILY Calcium 600 mg-Vit D3 5 Mcg Tb (Calcium Carbonate/Vitamin D3) 600 Mg Calcium-5 Mcg (200 Unit) Tablet 1 Each PO DAILY Advair 250-50 Diskus (Fluticasone/Salmeterol) 250 Mcg-50 Mcg/Dose Blst.w.dev 1 Puff IH BID Warfarin Sodium 4 Mg Tablet 4 Mg PO DAILY@1800 Warfarin Sodium 1 Mg Tablet 1 Mg PO DAILY@1800 Sucralfate 1 Gram Tablet 1 Gm PO BID WITH MEALS Vitamin B-12 (Cyanocobalamin (Vitamin B-12)) 1,000 Mcg Tablet 1,000 Mcg PO DAILY Instructions to patient/family Please see electronic discharge instructions given to patient. Diagnosis/Problems Diagnosis/Problems (1) Femoral neck fracture Status: Acute BIBI HOGUE DO Jun 08, 2023 04:22
[2023-06-08] MEDS: CATHETER FLUSH 10 ML SYR IVP SCH (06:25)
[2023-06-08] MEDS: SUCRALFATE 1 GM TABLET PO SCH (07:40)
[2023-06-08] MEDS: CYANOCOBALAMIN 1,000 MCG TABLET PO SCH (07:40)
[2023-06-08] MEDS: CALCIUM CARBONATE 600 MG +VITAMIN D TABLET PO SCH (07:40)
[2023-06-08] MEDS: DOCUSATE SODIUM 100 MG CAPSULE PO SCH (07:41)
[2023-06-08] MEDS: SENNA W/DOCUSATE TABLET PO SCH (07:41)
[2023-06-08] MEDS: ALBUTEROL SULFATE 4 MG PO SCH (07:42)
[2023-06-08 08:00] VITALS: BP 118/52
[2023-06-08 12:50] VITALS: BP 118/52
--- NOTE | 2023-06-08 17:02 | Therapy Team Discharge Summary ---
Therapy Discharge Summary Discharge Recommendations Date of Discharge Jun 08, 2023 at 12:50 Physical Therapy Patient was admitted to ARU 05/30 for (L) RUBEN. At the time of discharge, patient was (I) with bed mobility and all tasks with a FWW including transfers ambulating 520', curbs, picking up an object from the floor, and (I) with steps /c railings. She improved her Elderly Mobility Scale to a 15/20. Roll Left to Right (QC): 6 Sit to Lying (QC): 6 Lying to Sitting/Side of Bed(Q: 6 Sit to Stand (QC): 6 Chair/Xvw-nn-Coixc Xfer(QC): 6 Toilet Transfer (QC): 6 Car Transfer (QC): 6 Does the Patient Walk: Yes Mode of Locomotion: Walk Anticipated Mode of Locomotion: Walk Walk 10 feet (QC): 6 Walk 50 ft with 2 Turns(QC): 6 Walk 150 ft (QC): 6 Walking 10ft on uneven surface: 6 Distance: 520' / FWW Gait Assistive Device: FWW Does the Pt Use a Wheelchair: No Wheel 50 ft with 2 turns (QC): 9 Wheel 150 ft (QC): 9 #of Steps: 12 1 Step (curb) (QC): 6 4 Steps (QC): 6 12 Steps (QC): 6 Balance Sitting Static: Good Balance Sitting Dynamic: Fair Balance-Standing Static: Fair Picking up an Object (QC): 6 Occupational Therapy Decreased Activ Tolerance Eating (QC): 6 Oral Hygiene (QC): 6 Shower/Bathe Self (QC): 6 Upper Body Dressing (QC): 6 (to don/doff jacket) Lower Body Dressing (QC): 6 On/Off Footwear (QC): 6 Toileting Hygiene (QC): 6 PT Interventional Physician Goals Interventional Physician Goals PT Jail Goals Time Frame: Jun 13, 2023 Roll Left to Right (QC): 6 (/c pillow between knees) Sit to Lying (QC): 6 (/c leg pc technician if needed) Lying-Sitting on Side/Bed(QC): 6 (/c leg pc technician if needed) Sit to Stand (QC): 6 Chair/Ehz-le-Rlwwp Xfer(QC): 6 (/c FWW) Toilet/Commode Transfer (QC): 6 Car Transfer (QC): 5 (set up to move seat back ) Does the Patient Walk: Yes Walk 10 feet (QC): 6 (/c FWW) Walk 10ft-Uneven Surface(QC): 6 (/c FWW) Walk 50ft with 2 Turns (QC): 6 (/c FWW) Walk 150 ft (QC): 6 (/c FWW) Does the Pt use WC or Scooter?: No Wheel 50 feet with 2 turns (QC: 9 Wheel 150 feet: 9 1 Step (curb) (QC): 6 (/c FWW) 4 Steps (QC): 6 (/c railings) 12 Steps (QC): 6 (/c railings) Picking up an Object (QC): 6 (/c signal constructor) OT Interventional Physician Goals Interventional Physician Goals Time Frame: Jun 17, 2023 Acute change in mental status: 0 Inattention: 0 Disorganized thinkin Altered level of consciousness: 0 Eating (QC): 6 (met) Oral Hygiene (QC): 6 (met) Toileting Hygiene (QC): 6 (met) Shower/Bathe Self (QC): 6 (met) Upper Body Dressing (QC): 6 (met) Lower Body Dressing (QC): 6 (met) On/Off Footwear (QC): 6 (met) Additional Goals: 1-Demonstrate ADL Tasks, 2-Verbalize Understanding, 3- ImproveStrength/Jp 1=Demonstrate adherence to instructed precautions during ADL tasks. 2=Patient will verbalize/demonstrate understanding of assistive devices/modifications for ADL. 3=Patient will improve strength/tolerance for activity to enable patient to perform ADL's. Kari Whitfield PT Jun 08, 2023 17:02
--- NOTE | 2023-06-09 14:58 | Therapy Team Discharge Summary ---
Therapy Discharge Summary Discharge Recommendations Date of Discharge Jun 08, 2023 at 12:50 Therapy D/C Recommendations: Occupational Therapy Home Care Physical Therapy Roll Left to Right (QC): 6 Sit to Lying (QC): 6 Lying to Sitting/Side of Bed(Q: 6 Sit to Stand (QC): 6 Chair/Syh-fv-Rkwuc Xfer(QC): 6 Toilet Transfer (QC): 6 Car Transfer (QC): 6 Does the Patient Walk: Yes Mode of Locomotion: Walk Anticipated Mode of Locomotion: Walk Walk 10 feet (QC): 6 Walk 50 ft with 2 Turns(QC): 6 Walk 150 ft (QC): 6 Walking 10ft on uneven surface: 6 Distance: 520' / FWW Gait Assistive Device: FWW Does the Pt Use a Wheelchair: No Wheel 50 ft with 2 turns (QC): 9 Wheel 150 ft (QC): 9 #of Steps: 12 1 Step (curb) (QC): 6 4 Steps (QC): 6 12 Steps (QC): 6 Balance Sitting Static: Good Balance Sitting Dynamic: Fair Balance-Standing Static: Fair Picking up an Object (QC): 6 Occupational Therapy Pt admitted to [facility] s/p L [facility]. At [facility], pt was independent with ADLS and functional mobility without AD. Upon initial evaluation, pt required set up assistance with eating, oral care and UBD, partial assistance showering, max A LBD, total assist footwear and CGA with toileting. OT tx focused on increasing BUE strength and activity tolerance, and increasing safety and independence with ADLs and functional mobility. Pt made good progress towards goals, attaining all LTGS. Pt discharged home, d/c from OT. Decreased Activ Tolerance Eating (QC): 6 Oral Hygiene (QC): 6 Shower/Bathe Self (QC): 6 Upper Body Dressing (QC): 6 (to don/doff jacket) Lower Body Dressing (QC): 6 On/Off Footwear (QC): 6 Toileting Hygiene (QC): 6 PT Rn Observation Goals Rn Observation Goals PT Rn Observation Goals Time Frame: Jun 13, 2023 Roll Left to Right (QC): 6 (/c pillow between knees) Sit to Lying (QC): 6 (/c leg insulation cupola charger if needed) Lying-Sitting on Side/Bed(QC): 6 (/c leg insulation cupola charger if needed) Sit to Stand (QC): 6 Chair/Nag-ul-Hcdhi Xfer(QC): 6 (/c FWW) Toilet/Commode Transfer (QC): 6 Car Transfer (QC): 5 (set up to move seat back ) Does the Patient Walk: Yes Walk 10 feet (QC): 6 (/c FWW) Walk 10ft-Uneven Surface(QC): 6 (/c FWW) Walk 50ft with 2 Turns (QC): 6 (/c FWW) Walk 150 ft (QC): 6 (/c FWW) Does the Pt use WC or Scooter?: No Wheel 50 feet with 2 turns (QC: 9 Wheel 150 feet: 9 1 Step (curb) (QC): 6 (/c FWW) 4 Steps (QC): 6 (/c railings) 12 Steps (QC): 6 (/c railings) Picking up an Object (QC): 6 (/c child daycare worker) OT Shelter Goals Shelter Goals Time Frame: Jun 17, 2023 Acute change in mental status: 0 Inattention: 0 Disorganized thinkin Altered level of consciousness: 0 Eating (QC): 6 (met) Oral Hygiene (QC): 6 (met) Toileting Hygiene (QC): 6 (met) Shower/Bathe Self (QC): 6 (met) Upper Body Dressing (QC): 6 (met) Lower Body Dressing (QC): 6 (met) On/Off Footwear (QC): 6 (met) Additional Goals: 1-Demonstrate ADL Tasks, 2-Verbalize Understanding, 3- ImproveStrength/Jp 1=Demonstrate adherence to instructed precautions during ADL tasks. 2=Patient will verbalize/demonstrate understanding of assistive devices/m odifications for ADL. 3=Patient will improve strength/tolerance for activity to enable patient to perform ADL's. DELMAR ARAIZA OT Jun 09, 2023 14:58
== END 2023-06-08 12:50 | disposition home health service (06) | DRG 560 ==
PROVIDERS: ADMIT Internal Medicine; ATTEND Internal Medicine
DX: S72.002D Fracture of unspecified part of neck of left femur, subsequent encounter for closed fracture with routine healing (principal); D62 Acute posthemorrhagic anemia; Z96.642 Presence of left artificial hip joint; R32 Unspecified urinary incontinence; J45.909 Unspecified asthma, uncomplicated; E78.00 Pure hypercholesterolemia, unspecified; I10 Essential (primary) hypertension; K21.9 Gastro-esophageal reflux disease without esophagitis; K59.00 Constipation, unspecified; E53.8 Deficiency of other specified B group vitamins; E61.1 Iron deficiency; R05.3 Chronic cough; M19.90 Unspecified osteoarthritis, unspecified site; Z95.2 Presence of prosthetic heart valve; Z79.01 Long term (current) use of anticoagulants; Z79.899 Other long term (current) drug therapy
CPT/HCPCS: 36410; 36415; 76937; 80053; 82607; 83540; 85025; 85610; 94640; 94760